=== PATIENT | female | born 1950 | race Two or more races ===

== ENCOUNTER 2020-03-27 14:02 | Outpatient (REF) | payer MEDICARE, SELFPAY ==
--- NOTE | 2020-03-27 14:21 | MM_ITS ---
EXAMINATION: MM DIAGNOSTIC DIGITAL BREAST TOMOSYNTHESIS, BILATERAL CLINICAL INFORMATION: Due for yearly exam. Also follow-up to decreased nodular asymmetric density medial left breast. The lifetime risk of breast cancer based on the Tyrer-Cuzick Model is 5%. COMPARISON: Mammography: 09/20/2019, 03/09/2019, 02/19/2019 (BI-RADS 0), 02/13/2018 TECHNIQUE: Digital breast tomosynthesis is performed in both the craniocaudal and mediolateral oblique views along with computer-aided detection (CAD). Synthesized 2D images are generated from the tomosynthesis. FINDINGS: There are scattered areas of fibroglandular density (ACR BI-RADS breast composition Category b). There is stable nodularity mid outer right breast and 6:00 mid left breast. The nodular asymmetry medial left breast for follow-up are no longer demonstrated. There is no developing density or interval mass or architectural abnormality. No abnormal calcifications. The axilla and skin contours are unremarkable. Results are provided to the patient at time of visit by the technologist. MM/MM tomosynthesis diagnostic BI IMPRESSION: No mammographic evidence of malignancy. No persistent or developing asymmetric density. ASSESSMENT: BI-RADS 2: Benign RECOMMENDATION: Routine annual mammography screening. This patient's information was entered into a reminder system with a target due date for their next mammogram.
== END 2020-03-27 14:03 | disposition home or self-care (01) ==
LOC: HO.MAMMO 14:02
DX: N64.89 Other specified disorders of breast (principal)
CPT/HCPCS: 77062; 77066

== ENCOUNTER → 2020-05-01 11:13 | Outpatient (BNVA) | payer MEDICARE, SELFPAY | PROVIDERS: Visit Provider Orthopaedic Surgery | DX: M16.0 Bilateral primary osteoarthritis of hip (principal); M17.12 Unilateral primary osteoarthritis, left knee | CPT/HCPCS: 99212; J1100 ==

== ENCOUNTER → 2020-05-25 12:26 | Outpatient (BNVA) | payer MEDICARE, SELFPAY | PROVIDERS: Visit Provider Orthopaedic Surgery | DX: M17.0 Bilateral primary osteoarthritis of knee (principal); M70.61 Trochanteric bursitis, right hip; M70.62 Trochanteric bursitis, left hip; R53.81 Other malaise | CPT/HCPCS: 20610; 99212; J1100 ==

== ENCOUNTER 2020-07-14 09:10 | Outpatient (REF) | payer MEDICARE, SELFPAY ==
[2020-07-14 09:37] LABS: MANUAL DIFF FLAG NO
[2020-07-14 09:56] LABS: Basophils Absolute Auto 0.1 X10*3/uL (0.0-0.2); Basophils Percent Auto 0.8 % (0-2); Eosinophils Absolute Auto 0.2 X10*3/uL (0.0-0.4); Eosinophils Percent Auto 2.7 % (0-4); Hematocrit 31.1 % (37-47); Hemoglobin 9.4 g/dl (12.0-16.0); Imm Gran Abs Auto 0.02 X10*3/uL (0.00-0.03); Imm Gran Pct Auto 0.3 % (0.0-0.4); Lymphocytes Absolute Auto 2.3 X10*3/uL (1.2-4.9); Lymphocytes Percent Auto 36.4 % (20-40); Mean Corpuscular HGB Conc 30.2 g/dl (31.0-35.0); Mean Corpuscular Hemoglobin 27.3 pg (27.0-33.0); Mean Corpuscular Volume 90.4 fL (80-98); Mean Platelet Volume 10.9 fL (9.4-12.3); Monocytes Absolute Auto 0.6 X10*3/uL (0.1-1.2); Monocytes Percent Auto 8.6 % (2-11); Neutrophils Absolute Auto 3.3 X10*3/uL (2.0-8.3); Neutrophils Percent Auto 51.2 % (45-73); Platelet Count 210 X10*3/uL (160-400); Red Blood Count 3.44 X10*6/uL (4.20-5.50); Red Cell Distribution Width 16.6 % (11.0-16.0); White Blood Count 6.4 X10*3/uL (4.8-10.8)
[2020-07-14 10:18] LABS: Alanine Aminotransferase 19 U/L (0-31); Albumin Level 3.6 g/dL (3.5-5.0); Alkaline Phosphatase 72 U/L (39-117); Anion Gap 13 (12-20); Aspartate Amino Transferase 25 U/L (5-31); Bilirubin Total 0.4 mg/dL (0.0-1.0); Blood Urea Nitrogen 19 mg/dL (9-16); Calcium 8.6 mg/dL (8.4-10.2); Carbon Dioxide 28 mmol/L (22-29); Chloride 106 mmol/L (96-108); Cholesterol 153 mg/dL; Estimated Glomerular Filt Rate 55; Glucose Fasting 93 mg/dL (60-99); HDL Cholesterol 53 mg/dL; LDL Cholesterol Calculated 87 mg/dl; Potassium 4.3 mmol/L (3.3-5.1); Sodium 143 mmol/L (135-145); Triglycerides 68 mg/dL
[2020-07-14 10:40] LABS: Thyroid Stimulating Hormone 1.31 uIU/mL (0.32-4.0)
== END 2020-07-14 09:11 | disposition home or self-care (01) ==
LOC: HO.LAB 09:10
PROVIDERS: Visit Provider Internal Medicine
DX: E03.9 Hypothyroidism, unspecified (principal); E11.9 Type 2 diabetes mellitus without complications; Z00.00 Encounter for general adult medical examination without abnormal findings
CPT/HCPCS: 36415; 80053; 80061; 84443; 85025

== ENCOUNTER 2020-07-25 08:00 | Outpatient (RCR) | payer MEDICARE, SELFPAY ==
[2020-06-06 09:50] VITALS: BP 192/91; PULSE 73
--- NOTE | 2020-06-06 12:03 | MHC.PT.EP ---
[facility] [place] Office [place] Office [place] Office [address] [phone] F: [phone] F: [phone] F: [phone] F: [phone] Physical Therapy Plan of Care Date of Evaluation: 06/06/20 Date of Surgery: N/A Diagnosis: BL Knee OA, Hip Trochanteric Bursitis Assessment: Eunice Sanders is a 69-year-old woman presenting to physical therapy with a diagnosis of BL knee OA and BL hip trochanteric bursitis. She has h/o of h/o which was well managed with medications however it was re-aggravated following a fall on 04/01/21. She demonstrates impairments in posture, gait, BL LE strength, and BL LE ROM. 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 She would benefit from skilled therapy to address the aforementioned impairments to improve her quality of life and allow her to return to her PLOF. Frequency and Duration: The patient will be seen 2 visits per week for 6 weeks. Short Term Goals: 1.) Pt will reports 2/10 pain in her hips and left knee within 3 weeks for leisure activites. 2.) Pt will demonstrate >120 of B Knee flexion to allow for squatting activities within 3 weeks. X Ray Equipment Tester Goals: 1.) Pt will be able to walk for >20 minutes with <2/10 pain to allow for safe community ambulation within 6 weeks. 2.) Pt will be able to negotiate 12 stairs at a time with <2/10 pain in order for her to get to her bathroom within 6 weeks. Treatment Plan: Modalities to reduce pain, spasms and effusion. Manual therapy to restore motion and function. Therapeutic exercise to improve strength and flexibility. Neuromuscular re-education for posture and balance. Therapeutic activities to return to functional activities of daily living. Electronically signed by: Hillary Ramirez, PT, DPT Please sign and return to therapist. Thank you for your referral.
--- NOTE | 2020-08-07 09:29 | MHC.PT.DC ---
[facility] [place] Office [place] Office [place] Office [address]sten Ke[address] [phone] F: [phone] F: [phone] F: [phone] F: [phone] Physical Therapy Discharge Report Diagnosis: BL Knee OA, Hip Trochanteric Bursitis Date of Surgery: N/A Date of Evaluation: 06/06/20 Date of Discharge: Treatments to Date: 10 Cancellations to Date: 1 No Shows to Date: 0 Discharge Status: Achieved Goals Improved Function Independent with HEP Discharge Summary: The patient was able to demonstrate correct form with her HEP. I gave her a handout regarding standing balance. Instructions given on safety, fall risk reduction, and doing exercises in a corner. She demonstrated appropriate ankle reactive strategies for balance recovery. She verbalized understanding of her HEP. She will be d/c from skilled PT at this time. Electronically signed by: Verena Houston PT DPT Please sign and return to therapist. Thank you for your referral.
== END 2020-08-07 09:30 | disposition other institution (70) ==
LOC: HO.PT 08:00
PROVIDERS: Visit Provider Orthopaedic Surgery
DX: M17.0 Bilateral primary osteoarthritis of knee (principal); M70.61 Trochanteric bursitis, right hip; M70.62 Trochanteric bursitis, left hip; R53.81 Other malaise
CPT/HCPCS: 97110; 97112; 97140; 97161; 97530

== ENCOUNTER → 2020-08-09 10:02 | Outpatient (BNVA) | payer MEDICARE, SELFPAY | PROVIDERS: PCP Internal Medicine; Visit Provider Dietitian, Registered | DX: E66.01 Morbid (severe) obesity due to excess calories (principal); Z68.41 Body mass index [BMI] 40.0-44.9, adult | CPT/HCPCS: 97802 ==

== ENCOUNTER → 2020-09-04 10:42 | Outpatient (BNVA) | payer MEDICARE, SELFPAY | PROVIDERS: PCP Internal Medicine; Visit Provider Orthopaedic Surgery | DX: M17.0 Bilateral primary osteoarthritis of knee (principal) | CPT/HCPCS: 20610; 99212; J1100 ==

== ENCOUNTER → 2020-09-07 14:01 | Outpatient (BNVA) | payer MEDICARE, SELFPAY | PROVIDERS: PCP Internal Medicine; Visit Provider Dietitian, Registered | DX: E66.01 Morbid (severe) obesity due to excess calories (principal); Z68.41 Body mass index [BMI] 40.0-44.9, adult | CPT/HCPCS: 97803 ==

== ENCOUNTER → 2020-10-05 14:00 | Outpatient (BNVA) | payer MEDICARE, SELFPAY | PROVIDERS: PCP Internal Medicine; Visit Provider Dietitian, Registered | DX: E66.01 Morbid (severe) obesity due to excess calories (principal); Z68.41 Body mass index [BMI] 40.0-44.9, adult | CPT/HCPCS: 97803 ==

== ENCOUNTER 2020-10-09 09:57 | Outpatient (REF) | payer MEDICARE, SELFPAY ==
--- NOTE | 2020-10-09 11:20 | ECG_ITS ---
Test Reason : I10 HTN Blood Pressure : / mmHG Vent. Rate : 066 BPM Atrial Rate : 066 BPM P-R Int : 196 ms QRS Dur : 090 ms QT Int : 408 ms P-R-T Axes : 046 -30 019 degrees QTc Int : 427 ms Normal sinus rhythm Left axis deviation Abnormal ECG When compared to the previous EKG of Left axis deviation is new Referred By: Eduardo Guaman Electronically Signed By:NADYA MONTEZ MD
[2020-10-09 12:01] LABS: MANUAL DIFF FLAG NO
[2020-10-09 12:19] LABS: Basophils Absolute Auto 0.1 X10*3/uL (0.0-0.2); Basophils Percent Auto 0.8 % (0-2); Eosinophils Absolute Auto 0.2 X10*3/uL (0.0-0.4); Eosinophils Percent Auto 2.4 % (0-4); Hematocrit 31.7 % (37-47); Hemoglobin 9.4 g/dl (12.0-16.0); Imm Gran Abs Auto 0.02 X10*3/uL (0.00-0.03); Imm Gran Pct Auto 0.3 % (0.0-0.4); Immature Retic Fraction 19.7 % (3.0-15.9); Lymphocytes Absolute Auto 2.4 X10*3/uL (1.2-4.9); Lymphocytes Percent Auto 38.3 % (20-40); Mean Corpuscular HGB Conc 29.7 g/dl (31.0-35.0); Mean Corpuscular Hemoglobin 26.9 pg (27.0-33.0); Mean Corpuscular Volume 90.6 fL (80-98); Mean Platelet Volume 10.7 fL (9.4-12.3); Monocytes Absolute Auto 0.5 X10*3/uL (0.1-1.2); Monocytes Percent Auto 7.3 % (2-11); Neutrophils Absolute Auto 3.2 X10*3/uL (2.0-8.3); Neutrophils Percent Auto 50.9 % (45-73); Platelet Count 202 X10*3/uL (160-400); Retic HGB Equivalent 28.5 pg (30.0-35.0); Reticulocyte Percent 1.3 % (0.5-1.8); Reticulocytes Absolute 0.046 X10*6/uL (0.026-0.095); White Blood Count 6.3 X10*3/uL (4.8-10.8)
[2020-10-09 12:48] LABS: Iron 17 mcg/dL (30-160); Percent Iron Saturation 4 % (15-50); Total Iron Binding Capacity 387 mcg/dL (228-428); Unsaturated Iron Binding 370 ug/dL
[2020-10-09 13:00] LABS: Uric Acid 3.5 mg/dL (2.4-5.7)
[2020-10-09 13:05] LABS: Ferritin 5 ng/mL (10-250)
[2020-10-09 13:10] LABS: Folate 18.8 ng/mL (> or = 4.0); Vitamin B12 171 pg/mL (200-900)
== END 2020-10-09 09:58 | disposition home or self-care (01) ==
LOC: HO.LAB 09:57
PROVIDERS: PCP Internal Medicine; Referring Provider Internal Medicine; Visit Provider Physician Assistant
DX: Z01.818 Encounter for other preprocedural examination (principal); D64.9 Anemia, unspecified; M17.0 Bilateral primary osteoarthritis of knee; I10 Essential (primary) hypertension
CPT/HCPCS: 36415; 82607; 82728; 82746; 83540; 84550; 85025; 85045; 93005; 99202

== ENCOUNTER 2020-11-01 13:44 | Day surgery (SDC) | payer MEDICARE, SELFPAY ==
[2020-10-26 12:12] VITALS: BMI 40.5
--- NOTE | 2020-10-31 12:08 | HO.ANESPROP2 ---
Documented by User: Yumiko Bethea 10/31/20 12:10 HPI - Anesthesia Eval Consult details Narrative: 69yo F for Upper Endoscopy and Colonoscopy PMFSH Active Problems Active Problems: All Active Problems (Updated 10/09/20 @ 11:54 by Marion Burger PA-C) Morbid (severe) obesity due to excess calories (Acute) Obesity (Acute) Colon cancer screening (Acute) Anemia (Acute) Hypertension (Acute) Physical deconditioning (Acute) Greater trochanteric bursitis of both hips (Acute) Bilateral primary osteoarthritis of knee (Acute) Past Medical History Medical History Bilateral primary osteoarthritis of knee Gout Greater trochanteric bursitis of both hips Hypertension Physical deconditioning Sarcoidosis Family History Family History Mother No problems noted. Father No problems noted. Surgical History Surgical History H/O colonoscopy H/O esophagogastroduodenoscopy History of hysterectomy Hx of tonsillectomy Social History Social History (Updated 10/09/20 @ 10:49 by Marion Burger PA-C) Household Members Other:: lives with - cares for her sister Alcohol intake: never Patient Tobacco Use Status: Never used Tobacco Advance Directives: No Advance Directives Information Provided: Yes Current occupational status: retired Current occupation: right handed Meds Allergies Allergy/AdvReac Type Severity Reaction Status Date / Time penicillin V Allergy Unknown Unknown Verified 10/09/20 10:03 Sulfa (Sulfonamide Allergy Unknown unknon Verified 10/09/20 10:03 Antibiotics) Benadryl Allergy Unknown Unknown Uncoded 09/04/20 10:51 Home Medications Medication Instructions Recorded Confirmed Last Taken Type aspirin 81 mg tablet,delayed 81 mg PO DAILY 05/01/20 10/26/20 Unknown History release allopurinol 300 mg tablet 300 mg PO DAILY tab 08/07/20 10/26/20 Unknown History ibuprofen 200 mg tablet 200 mg PO Q6H PRN 08/07/20 10/09/20 Unknown History multivitamin 1 tab PO DAILY 08/07/20 10/26/20 Unknown History Exam Exam Date and Time: October 31, 2020 1208 Height,Weight and Vital Signs: Height 5 ft 3 in Weight 103.873 kg Narrative Narrative: EKG 09/2020 Vent. Rate : 066 BPM Atrial Rate : 066 BPM P-R Int : 196 ms QRS Dur : 090 ms QT Int : 408 ms P-R-T Axes : 046 -30 019 degrees QTc Int : 427 ms Normal sinus rhythm Left axis deviation Abnormal ECG When compared to the previous EKG of Left axis deviation is new Assessment and Plan Assessment Anesthesia Assessment: Chart Reviewed Documented by User: Leyda Pimentel 11/01/20 14:42 PMFSH Past Medical History Medical History Bilateral primary osteoarthritis of knee Gout Greater trochanteric bursitis of both hips Hypertension Physical deconditioning Sarcoidosis Family History Family History Mother No problems noted. Father No problems noted. Surgical History Surgical History H/O colonoscopy H/O esophagogastroduodenoscopy History of hysterectomy Hx of tonsillectomy Social History Social History (Updated 10/09/20 @ 10:49 by Marion Burger PA-C) Household Members Other:: lives with - cares for her sister Alcohol intake: never Patient Tobacco Use Status: Never used Tobacco Advance Directives: No Advance Directives Information Provided: Yes Current occupational status: retired Current occupation: right handed Meds Allergies Allergy/AdvReac Type Severity Reaction Status Date / Time penicillin V Allergy Unknown Unknown Verified 10/09/20 10:03 Sulfa (Sulfonamide Allergy Unknown unknon Verified 10/09/20 10:03 Antibiotics) Benadryl Allergy Unknown Unknown Uncoded 09/04/20 10:51 Home Medications Medication Instructions Recorded Confirmed Last Taken Type aspirin 81 mg tablet,delayed 81 mg PO DAILY 05/01/20 10/26/20 Unknown History release allopurinol 300 mg tablet 300 mg PO DAILY tab 08/07/20 10/26/20 Unknown History ibuprofen 200 mg tablet 200 mg PO Q6H PRN 08/07/20 10/09/20 Unknown History multivitamin 1 tab PO DAILY 08/07/20 10/26/20 Unknown History Exam Airway Mallampati Class: III TM Dist: >3cm Neck ROM: Full Heart: rrr Lungs: cta Assessment and Plan Assessment Anesthesia Assessment: Anesthesia Plan Discussed and Chart Reviewed Final Anesthetic Review NPO: Yes ASA Class: III Final Preanesthetic Review: No Changes in Pt Med Stat and Consent Obtained/Reviewed Patient Risk: Intermediate Procedure Risk: Intermediate Anesthetic Plan Anesthetic Plan: MAC: Disposition: Standard PACU
--- NOTE | 2020-11-01 13:48 | P.HPSUR_ITS ---
Pre-Procedural Eval Section A Date of Service: 11/01/20 Section B Chief Complaint: anemia,screening Relevant Family History (Specify if Yes): No Relevant Social History: None Present Medications: see Short Stay Collaborative assessment Medical History: Significant History (Bilateral primary osteoarthritis of knee Gout Greater trochanteric bursitis of both hips Hypertension Physical deconditioning Sarcoidosis) History of Previous Operations: Relevant previous surgery/procedure and date(s) (H/O colonoscopy H/O esophagogastroduodenoscopy History of hysterectomy Hx of tonsillectomy) Allergies: Allergies Allergy/AdvReac Type Severity Reaction Status Date / Time penicillin V Allergy Unknown Unknown Verified 10/09/20 10:03 Sulfa (Sulfonamide Allergy Unknown unknon Verified 10/09/20 10:03 Antibiotics) Benadryl Allergy Unknown Unknown Uncoded 09/04/20 10:51 Review of Systems Sugical H&P ROS: Negative: Constitution, Cardiovascular, Respiratory, Neurological, Psychiatric, Hem-Onc, Allergic/Immunologic, Gastrointestinal, Gen itourinary, Musculoskeletal, Integumentary, Endocrine and Eyes/Ears/Nose/Throat Exam Surgical H&P Exam: Normal: HEENT, Normal: Heart, Normal: Lungs, Normal: Extremities, Normal: Abdomen, Normal: Skin and Normal: Neurological Plan Diagnosis/Plan: Unchanged I have reviewed the history and physical and performed a pertinent physical examination on my patient. No changes have occurred unless specified.
--- NOTE | 2020-11-01 13:49 | PM.OP ---
Brief Operative Note Date of Service: 11/01/20 Pre-op diagnosis: anemia Post-op diagnosis: same Procedure: see op note Surgeon: Blanca Rasmussen MD Anesthesia: MAC Was an Exceptional Student Education Teacher used for this Procedure?: No Estimated blood loss (mL): 0 Condition: stable Disposition: PACU
--- NOTE | 2020-11-01 13:50 | W.PM.OPN ---
Operative Note Operative Note Date of Service: 11/01/20 Narrative: Operative Information Procedure Description: EGD, Colonoscopy FLEXIBLE TRANSORAL UPPER GASTROINTESTINAL ENDOSCOPY AND COLONOSCOPY PROCEDURE NOTE UPPER ENDOSCOPY Consent: Indications for the procedure and potential complications of bleeding, perforation, reaction to medications and missed diagnosis were discussed with the patient and informed consent was obtained. Instrument: Olympus GIF H 190 J mid size upper endoscope Monitoring: Vital signs and clinical assessment, continuous EKG monitoring, Pulse oximetry, Carbon Dioxide monitoring and blood pressure monitoring were done throughout the procedure. Procedure: The patient was placed in the left lateral decubitis position and pre-procedure medications were administered and a bite block was placed. The endoscope was inserted into the mouth and advanced under direct vision to the third part of duodenum. A careful inspection was made as the upper endoscope was withdrawn including a retroflexed examination of the proximal stomach; Findings and interventions are described below. Findings: Larynx:normal Esophagus: GE junction at 38 cm, diaphragm hiatus at 40 cm, schatzki ring noted with 2 cm sliding hiatal hernia and salmon pink tongue of tissue suspicious for barretts esophagus, bx taken Stomach: Patchy gastritis. Biopsies were obtained. Grade 2 flap valve on retroflexed examination of the cardia. Duodenum: Normal bulb and descending duodenum, bx taken Intervention: Biopsies as noted above COLONOSCOPY Instrument: Olympus variable stiffness adult scope 190L Colonoscopy Monitoring: Vital signs and clinical assessment, continuous EKG monitoring, Pulse oximetry, Carbon Dioxide monitoring and blood pressure monitoring were done throughout the procedure. Colon withdrawal time was 9 minutes. Procedure: The patient was placed in the left lateral decubitis position and pre-procedure medications were administered. After a digital rectal examination of the ano-rectum, the video colonoscope was inserted into the rectum and advanced through the colon to the cecum/TI. The colonoscope was slowly withdrawn in a retrograde panoramic fashion and the colon mucosa was carefully examined including a retroflexed view of the rectum. Findings and interventions are described below. Procedure Difficulty:easy Findings: Terminal Ileum-nodular lymphoid tissue noted with ileitis and erythema, bx taken right sided random colon bx taken Cecum:normal Ascending Colon: normal Transverse Colon -normal Descending Colon:normal Sigmoid Colon: mild diverticulosis, small tics noted Rectum: Retroflexion with small internal hemorrhoids, grade I Anorectum - normal Colon preparation: [place] Bowel Preparation Scale Right colon; 2 Transverse colon: 2 Left colon; 3 (0 = Unprepared colon segment with mucosa not seen due to solid stool that cannot be cleared. 1 = Portion of mucosa of the colon segment seen, but other areas of the colon segment not well seen due to staining, residual stool and/or opaque liquid. 2 = Minor amount of residual staining, small fragments of stool and/or opaque liquid, but mucosa of colon segment seen well. 3 = Entire mucosa of colon segment seen well with no residual staining, small fragments of stool or opaque liquid) Impression and Post Procedure Diagnosis: Endoscopy Findings: hiatal hernia gastritis suspected barretts esophagus Colonoscopy Findings: internal hemorrhoids diverticular disease Plan: Await Pathology results Repeat Colonoscopy in 10 years if health allows or earlier if clinically indicated High fiber diet leaflet avoid straining at stool, epsom salts and sitz bath, anusol supps or cream No active bleeding noted, if bx neg then capsule endoscopy Above findings were reviewed with the patient and relevant handouts were provided if indicated.
[2020-11-01 14:01] VITALS: BP 181/96; PULSE 73; RESP 15; TEMP 36.7; O2SAT 97; BMI 39.8
[2020-11-01] MEDS: Lactated Ringers 1,000 ML 100 ML IVCONT (14:17)
[2020-11-01 15:30] VITALS: BP 125/68; PULSE 82; RESP 14; TEMP 36.2; O2SAT 95
[2020-11-01 15:45] VITALS: BP 137/80; PULSE 84; RESP 18; O2SAT 97
== END 2020-11-01 16:55 | disposition home or self-care (01) ==
PROVIDERS: PCP Internal Medicine; Visit Provider Internal Medicine Gastroenterology
PROC: (CPT 45380; principal; 2020-11-01 14:50)
DX: Z12.11 Encounter for screening for malignant neoplasm of colon (principal); K57.30 Diverticulosis of large intestine without perforation or abscess without bleeding; K64.0 First degree hemorrhoids; D64.9 Anemia, unspecified; K22.2 Esophageal obstruction; K22.70 Barrett's esophagus without dysplasia; K29.50 Unspecified chronic gastritis without bleeding; K44.9 Diaphragmatic hernia without obstruction or gangrene; D86.9 Sarcoidosis, unspecified; I10 Essential (primary) hypertension; Z79.82 Long term (current) use of aspirin; Z79.899 Other long term (current) drug therapy; Z88.0 Allergy status to penicillin; Z88.2 Allergy status to sulfonamides
CPT/HCPCS: 45380; 43239; 88305; 88342

== ENCOUNTER → 2020-11-13 09:41 | Outpatient (BNVA) | payer MEDICARE, SELFPAY | PROVIDERS: PCP Internal Medicine; Referring Provider Internal Medicine; Visit Provider Internal Medicine Gastroenterology ==

== ENCOUNTER 2020-11-13 10:05 | Outpatient (REF) | payer MEDICARE, SELFPAY ==
[2020-11-16 13:35] LABS: H Pylori Breath Test NOT DETECTED (NOT DETECTED)
== END 2020-11-13 10:06 | disposition home or self-care (01) ==
LOC: HO.LNP 10:05
PROVIDERS: Visit Provider Physician Assistant
DX: A04.8 Other specified bacterial intestinal infections (principal)
CPT/HCPCS: 83013

== ENCOUNTER → 2020-11-14 13:32 | Outpatient (BNVA) | payer MEDICARE, SELFPAY | PROVIDERS: PCP Internal Medicine; Visit Provider Physician Assistant | DX: Z13.89 Encounter for screening for other disorder (principal) | CPT/HCPCS: Q3014 ==

== ENCOUNTER → 2020-11-23 14:32 | Outpatient (BNVA) | payer MEDICARE, SELFPAY | PROVIDERS: PCP Internal Medicine; Visit Provider Dietitian, Registered | DX: E66.01 Morbid (severe) obesity due to excess calories (principal); Z71.3 Dietary counseling and surveillance | CPT/HCPCS: 97803 ==

== ENCOUNTER 2020-12-04 09:25 | Outpatient (REF) | payer MEDICARE, SELFPAY ==
[2020-12-04 10:47] LABS: MANUAL DIFF FLAG NO
[2020-12-04 10:53] LABS: Basophils Percent Auto 0.7 % (0-2); Eosinophils Absolute Auto 0.2 X10*3/uL (0.0-0.4); Eosinophils Percent Auto 3.8 % (0-4); Hematocrit 32.4 % (37-47); Hemoglobin 9.8 g/dl (12.0-16.0); Imm Gran Abs Auto 0.01 X10*3/uL (0.00-0.03); Imm Gran Pct Auto 0.2 % (0.0-0.4); Immature Retic Fraction 24.8 % (3.0-15.9); Lymphocytes Absolute Auto 1.9 X10*3/uL (1.2-4.9); Lymphocytes Percent Auto 33.9 % (20-40); Mean Corpuscular HGB Conc 30.2 g/dl (31.0-35.0); Mean Corpuscular Hemoglobin 26.8 pg (27.0-33.0); Mean Corpuscular Volume 88.5 fL (80-98); Mean Platelet Volume 11.7 fL (9.4-12.3); Monocytes Absolute Auto 0.4 X10*3/uL (0.1-1.2); Monocytes Percent Auto 6.6 % (2-11); Neutrophils Percent Auto 54.8 % (45-73); Platelet Count 222 X10*3/uL (160-400); Red Blood Count 3.66 X10*6/uL (4.20-5.50); Red Cell Distribution Width 17.6 % (11.0-16.0); Retic HGB Equivalent 28.3 pg (30.0-35.0); Reticulocyte Percent 1.3 % (0.5-1.8); Reticulocytes Absolute 0.048 X10*6/uL (0.026-0.095); White Blood Count 5.5 X10*3/uL (4.8-10.8)
[2020-12-04 11:23] LABS: Iron 26 mcg/dL (30-160)
[2020-12-04 11:29] LABS: Ferritin 6 ng/mL (10-250)
[2020-12-04 11:44] LABS: Folate 18.3 ng/mL (> or = 4.0); Vitamin B12 839 pg/mL (200-900)
[2020-12-06 16:15] LABS: Percent Iron Saturation 8 % (15-50); Total Iron Binding Capacity 344 mcg/dL (228-428); Unsaturated Iron Binding 318 ug/dL
== END 2020-12-04 09:26 | disposition home or self-care (01) ==
LOC: HO.LAB 09:25
PROVIDERS: PCP Internal Medicine; Visit Provider Internal Medicine
DX: D64.9 Anemia, unspecified (principal)
CPT/HCPCS: 36415; 82607; 82728; 82746; 83540; 85025; 85045

== ENCOUNTER 2020-12-06 11:45 | Outpatient (REF) | payer MEDICARE, SELFPAY ==
[2020-12-11 03:11] LABS: Calprotectin, Fecal 557 mcg/g
== END 2020-12-06 11:46 | disposition home or self-care (01) ==
LOC: HO.LNP 11:45
PROVIDERS: Visit Provider Physician Assistant
DX: R19.7 Diarrhea, unspecified (principal)
CPT/HCPCS: 83993

== ENCOUNTER → 2020-12-19 14:43 | Outpatient (BNVA) | payer MEDICARE, SELFPAY | PROVIDERS: PCP Internal Medicine; Visit Provider Physician Assistant | CPT/HCPCS: Q3014 ==

== ENCOUNTER → 2020-12-28 08:28 | Outpatient (BNVA) | payer MEDICARE, SELFPAY | PROVIDERS: PCP Internal Medicine; Referring Provider Internal Medicine; Visit Provider Internal Medicine Gastroenterology | DX: K22.2 Esophageal obstruction (principal); K29.70 Gastritis, unspecified, without bleeding | CPT/HCPCS: 91110 ==

== ENCOUNTER → 2021-01-24 13:45 | Outpatient (BNVA) | payer MEDICARE, SELFPAY | PROVIDERS: PCP Internal Medicine; Referring Provider Internal Medicine; Visit Provider Physician Assistant | CPT/HCPCS: Q3014 ==

== ENCOUNTER → 2021-01-25 12:33 | Outpatient (BNVA) | payer MEDICARE, SELFPAY | PROVIDERS: PCP Internal Medicine; Visit Provider Dietitian, Registered | DX: E66.01 Morbid (severe) obesity due to excess calories (principal) | CPT/HCPCS: 97803 ==

== ENCOUNTER 2021-07-02 12:10 | Outpatient (REF) | payer MEDICARE, SELFPAY ==
--- NOTE | ~2021-07-02 | MM_ITS ---
EXAMINATION: MM SCREENING DIGITAL BREAST TOMOSYNTHESIS, BILATERAL CLINICAL INFORMATION: Screening. Asymptomatic. The lifetime risk of breast cancer based on the Tyrer-Cuzick Model is 6.5%. COMPARISON: Mammography: March 27, 2020 and studies dating back to May 31, 2013 TECHNIQUE: Digital breast tomosynthesis is performed in both the craniocaudal and mediolateral oblique views along with computer-aided detection (CAD). Synthesized 2D images are generated from the tomosynthesis. FINDINGS: There are scattered areas of fibroglandular density (ACR BI-RADS breast composition Category b). There are no new significant masses, abnormal calcifications, or other abnormalities. MM/MM tomosynthesis screening BI IMPRESSION: There are no significant changes from prior study. ASSESSMENT: BI-RADS 1: Negative RECOMMENDATION: Routine annual mammography screening. This patient's information was entered into a reminder system with a target due date for their next mammogram.
== END 2021-07-02 12:11 | disposition home or self-care (01) ==
LOC: HO.MAMMO 12:10
PROVIDERS: PCP Internal Medicine; Visit Provider Internal Medicine
DX: Z12.31 Encounter for screening mammogram for malignant neoplasm of breast (principal)
CPT/HCPCS: 77063; 77067

== ENCOUNTER 2021-09-21 09:56 | Outpatient (REF) | payer MEDICARE, SELFPAY ==
[2021-09-21 10:07] LABS: MANUAL DIFF FLAG NO
[2021-09-21 10:18] LABS: Basophils Absolute Auto 0.1 X10*3/uL (0.0-0.2); Basophils Percent Auto 0.8 % (0-2); Eosinophils Absolute Auto 0.1 X10*3/uL (0.0-0.4); Eosinophils Percent Auto 1.9 % (0-4); Hematocrit 34.3 % (37.0-47.0); Hemoglobin 10.6 g/dl (12.0-16.0); Imm Gran Abs Auto 0.02 X10*3/uL (0.00-0.03); Imm Gran Pct Auto 0.3 % (0.0-0.4); Immature Retic Fraction 18.3 % (3.0-15.9); Lymphocytes Absolute Auto 2.4 X10*3/uL (1.2-4.9); Lymphocytes Percent Auto 32.5 % (20-40); Mean Corpuscular HGB Conc 30.9 g/dl (31.0-35.0); Mean Corpuscular Hemoglobin 28.4 pg (27.0-33.0); Mean Platelet Volume 10.3 fL (9.4-12.3); Monocytes Absolute Auto 0.5 X10*3/uL (0.1-1.2); Monocytes Percent Auto 6.5 % (2-11); Neutrophils Absolute Auto 4.2 x10*3/uL (2.0-8.3); Platelet Count 222 X10*3/uL (160-400); Red Blood Count 3.73 X10*6/uL (4.20-5.50); Red Cell Distribution Width 15.8 % (11.0-16.0); Retic HGB Equivalent 30.2 pg (30.0-35.0); Reticulocyte Percent 1.2 % (0.5-1.8); Reticulocytes Absolute 0.046 X10*6/uL (0.026-0.095); White Blood Count 7.3 X10*3/uL (4.8-10.8)
[2021-09-21 10:46] LABS: Alanine Aminotransferase 17 U/L (0-31); Albumin Level 3.8 g/dL (3.5-5.0); Alkaline Phosphatase 78 U/L (39-117); Anion Gap 12 (12-20); Aspartate Amino Transferase 19 U/L (5-31); Bilirubin Total 0.3 mg/dL (0.0-1.0); Blood Urea Nitrogen 15 mg/dL (9-16); Calcium 8.8 mg/dL (8.4-10.2); Carbon Dioxide 29 mmol/L (22-29); Chloride 105 mmol/L (96-108); Estimated Glomerular Filt Rate 52; Glucose Random 97 mg/dL (60-115); Iron 49 mcg/dL (30-160); Percent Iron Saturation 13 % (15-50); Potassium 4.1 mmol/L (3.3-5.1); Sodium 142 mmol/L (135-145); Total Iron Binding Capacity 376 mcg/dL (228-428); Total Protein 7.7 g/dL (6.5-8.0); Unsaturated Iron Binding 327 ug/dL
[2021-09-21 11:07] LABS: Free T4 (Free Thyroxine) 1.25 ng/dL (0.71-1.85); Thyroid Stimulating Hormone 1.18 uIU/mL (0.32-4.0)
[2021-09-21 11:28] LABS: Folate 17.4 ng/mL (> or = 4.0); Vitamin B12 > 2000 pg/mL (200-900)
== END 2021-09-21 09:57 | disposition home or self-care (01) ==
LOC: HO.LAB 09:56
PROVIDERS: PCP Internal Medicine; Visit Provider Internal Medicine
DX: D64.9 Anemia, unspecified (principal); I10 Essential (primary) hypertension
CPT/HCPCS: 36415; 80053; 82306; 82607; 82746; 83540; 84439; 84443; 85025; 85045

== ENCOUNTER → 2021-10-12 10:17 | Outpatient (BNVA) | payer MEDICARE, SELFPAY | PROVIDERS: PCP Internal Medicine; Visit Provider Dietitian, Registered | DX: E66.01 Morbid (severe) obesity due to excess calories (principal); Z68.41 Body mass index [BMI] 40.0-44.9, adult; Z71.3 Dietary counseling and surveillance | CPT/HCPCS: 97803 ==

== ENCOUNTER → 2021-10-25 10:44 | Outpatient (BNVA) | payer MEDICARE, OTHER, SELFPAY | PROVIDERS: PCP Internal Medicine; Visit Provider Orthopaedic Surgery | DX: M70.62 Trochanteric bursitis, left hip (principal) | CPT/HCPCS: 20610; 99212; J1100 ==

== ENCOUNTER → 2021-10-29 10:42 | Outpatient (BNV) | payer MEDICARE, MEDICAID, SELFPAY | PROVIDERS: PCP Internal Medicine; Visit Provider Internal Medicine | DX: D64.9 Anemia, unspecified (principal) | CPT/HCPCS: 99204; 99212; 99213; G2211 ==

== ENCOUNTER 2021-11-07 10:48 | Outpatient (REF) | payer MEDICARE, SELFPAY ==
--- NOTE | ~2021-11-07 | XR_ITS ---
EXAMINATION: XR FINGER, RIGHT CLINICAL INFORMATION: R22.31 - Localized swelling, mass and lump and pain 4th finger COMPARISON: None TECHNIQUE: Frontal view right hand and oblique and lateral views of the fourth finger are obtained for 3 views. FINDINGS: There is mild osteopenia. No periarticular demineralization. No acute or healing fracture, dislocation, destructive process, or periostitis. The fourth finger shows no bony exostosis, joint narrowing, erosive change, or mineralized soft tissue mass. XR/XR finger RT min 2V IMPRESSION: -No bony exostosis, fracture, destructive process, or erosive arthropathy. -No visualized mineralized soft tissue mass. -Mild generalized osteopenia.
== END 2021-11-07 10:49 | disposition home or self-care (01) ==
LOC: HO.XRAY 10:48
PROVIDERS: PCP Internal Medicine; Visit Provider Internal Medicine
DX: R22.31 Localized swelling, mass and lump, right upper limb (principal)
CPT/HCPCS: 73140

== ENCOUNTER → 2021-12-13 10:10 | Outpatient (BNVA) | payer MEDICARE, SELFPAY | PROVIDERS: PCP Internal Medicine; Visit Provider Dietitian, Registered | DX: E66.01 Morbid (severe) obesity due to excess calories (principal); Z68.41 Body mass index [BMI] 40.0-44.9, adult; Z71.3 Dietary counseling and surveillance | CPT/HCPCS: 97803 ==

== ENCOUNTER → 2021-12-21 11:38 | Outpatient (BNVA) | payer MEDICARE, SELFPAY | PROVIDERS: PCP Internal Medicine; Visit Provider Physician Assistant | DX: R22.31 Localized swelling, mass and lump, right upper limb (principal) | CPT/HCPCS: 99202 ==

== ENCOUNTER 2022-01-31 12:55 | Outpatient (REF) | payer MEDICARE, MEDICAID, SELFPAY ==
--- NOTE | ~2022-01-31 | MR_ITS ---
EXAMINATION: MRI OF THE RIGHT HAND WITH AND WITHOUT CONTRAST. CLINICAL INFORMATION: Localized swelling. Mass and lump in the right upper extremity. Fourth digit mass x7 months. Not painful. COMPARISON: None. TECHNIQUE: Multiplanar MR imaging was obtained through the ring finger on a 1.5 Anamaria magnet before and after intravenous administration of 10 mL Gadavist. FINDINGS: Within the volar subcutaneous fat at the level of the ring finger PIP joint, there is a 1.9 x 0.7 x 1.2 cm bilobed nodule with intermediate signal intensity on T2-weighted images, low signal intensity on T1-weighted images, and diffuse enhancement on postcontrast images. At its deep margin, this nodule surrounds the flexor tendon sheath and A3 betty. Surrounding soft tissues are normal in signal intensity without edema signal or fluid collections. The tendon is intact without tears, tendinosis, or tenosynovitis. Musculature is normal in signal intensity. Mild multifocal osteoarthritis is evident in the MCP joints and interphalangeal joints with more mild to moderate osteoarthritis at the thumb CMC joint. No acute osseous abnormalities. MR/MR hand RT wo/w con IMPRESSION: A 1.9 cm bilobed enhancing nodule in the volar subcutaneous fat at the level of the ring finger PIP joint. The differential diagnosis includes an extra-articular tenosynovial giant cell tumor and a fibroma of the tendon sheath. Other possibilities range from gout to a soft tissue neoplasm. Tissue diagnosis is advised.
== END 2022-01-31 12:56 | disposition home or self-care (01) ==
LOC: HO.MRI 12:55
PROVIDERS: Visit Provider Physician Assistant
DX: R22.31 Localized swelling, mass and lump, right upper limb (principal)
CPT/HCPCS: 73220; A9585

== ENCOUNTER 2022-03-05 14:02 | Outpatient (REF) | payer MEDICARE, MEDICAID, SELFPAY ==
--- NOTE | ~2022-03-05 | XR_ITS ---
EXAMINATION: XR HAND, RIGHT CLINICAL INFORMATION: Pain. COMPARISON: None TECHNIQUE: PA, lateral, and oblique views of the right hand. FINDINGS: There is mild loss of PIP and DIP joint space of all digits with mild periarticular spurring PIP joint first digit. No visible acute fracture, dislocation or subluxation seen. There is mild osteopenia. The soft tissues are normal. XR/XR hand RT min 3V IMPRESSION: Degenerative osteoarthritic changes PIP and DIP joints. There is mild diffuse osteopenia. No visible acute fracture or dislocation.
== END 2022-03-05 14:03 | disposition home or self-care (01) ==
LOC: HO.HOSX 14:02
PROVIDERS: Visit Provider Orthopaedic Surgery
DX: M79.641 Pain in right hand (principal)
CPT/HCPCS: 73130

== ENCOUNTER → 2022-03-06 10:42 | Outpatient (BNVA) | payer MEDICARE, MEDICAID, SELFPAY | PROVIDERS: PCP Internal Medicine; Visit Provider Orthopaedic Surgery | DX: R22.31 Localized swelling, mass and lump, right upper limb (principal) | CPT/HCPCS: 99212 ==

== ENCOUNTER → 2022-03-18 11:33 | Outpatient (BNVA) | payer MEDICARE, MEDICAID, SELFPAY | PROVIDERS: PCP Internal Medicine; Visit Provider Orthopaedic Surgery | DX: M70.62 Trochanteric bursitis, left hip (principal); M17.12 Unilateral primary osteoarthritis, left knee | CPT/HCPCS: 20610; 99212; J1100 ==

== ENCOUNTER 2022-03-21 10:15 | Outpatient (REF) | payer MEDICARE, MEDICAID, SELFPAY ==
--- NOTE | 2022-03-21 10:20 | ECG_ITS ---
Test Reason : preproc exam Blood Pressure : / mmHG Vent. Rate : 062 BPM Atrial Rate : 062 BPM P-R Int : 210 ms QRS Dur : 094 ms QT Int : 402 ms P-R-T Axes : 033 -39 043 degrees QTc Int : 408 ms Sinus rhythm with 1st degree A-V block Left axis deviation Minimal voltage criteria for LVH, may be normal variant ( Pipo product ) Abnormal ECG When compared with ECG of 09-OCT-2020 11:27, No significant change was found Referred By: Jia Jacome Electronically Signed By:NADYA MONTEZ MD
[2022-03-21 12:41] LABS: Anion Gap 14 (12-20); Blood Urea Nitrogen 25 mg/dL (9-16); Calcium 8.9 mg/dL (8.4-10.2); Carbon Dioxide 28 mmol/L (22-29); Chloride 103 mmol/L (96-108); Estimated Glomerular Filt Rate 54; Glucose Random 78 mg/dL (60-115); Sodium 141 mmol/L (135-145)
== END 2022-03-21 10:16 | disposition home or self-care (01) ==
LOC: HO.LAB 10:15
PROVIDERS: PCP Internal Medicine; Visit Provider Nurse Practitioner Family
DX: Z01.818 Encounter for other preprocedural examination (principal); I10 Essential (primary) hypertension
CPT/HCPCS: 36415; 80048; 93005

== ENCOUNTER → 2022-04-24 13:06 | Outpatient (BNVA) | payer MEDICARE, MEDICAID, SELFPAY | PROVIDERS: PCP Internal Medicine; Visit Provider Orthopaedic Surgery | DX: R22.31 Localized swelling, mass and lump, right upper limb (principal) | CPT/HCPCS: 99212 ==

== ENCOUNTER 2022-05-09 12:55 | Day surgery (SDC) | payer MEDICARE, MEDICAID, SELFPAY ==
[2022-05-09 13:16] VITALS: BP 178/84; PULSE 84; RESP 18; TEMP 36.6; O2SAT 98; BMI 40.0
--- NOTE | 2022-05-09 13:58 | MHC.SHP ---
Pre-Procedural Eval Section A Date of Service: 05/09/22 The patient is an INPATIENT: No Changes since office visit: No Cold of Flu in the past 2 weeks, No New Medical Problems, No Changes in Medication and No Patient answered all questions The History & Physical has been completed within 30 days and I have reviewed it.: Yes Section B Chief Complaint: Localized swelling, mass and lump, right Allergies: Allergies Allergy/AdvReac Type Severity Reaction Status Date / Time penicillin V Allergy Unknown Unknown Verified 03/21/22 09:29 Sulfa (Sulfonamide Allergy Unknown unknon Verified 03/21/22 09:29 Antibiotics) Benadryl Allergy Unknown Unknown Uncoded 02/22/22 14:37 Plan I have reviewed the history and physical and performed a pertinent physical examination on my patient. No changes have occurred unless specified. Time Spent With Patient Time: Total time managing care of this patient today ____ minutes.
--- NOTE | 2022-05-09 14:01 | W.PM.OPN ---
Operative Note Operative Note Date of Service: 05/09/22 Narrative: Operative Note Preop diagnosis: 1. Right ring finger volar soft tissue mass Postop diagnosis: same Procedure: 1. Right ring finger volar soft tissue mass excisional biopsy Surgeon: Regina Carter MD Anesthesia: digital block using 1% lidocaine with epinephrine Findings: She had a white solid bi-lobed soft tissue mass that was adherent to the flexor tendon sheath and also to the volar plate on the ulnar aspect of the PIP joint. EBL: Less than 5 mL Tourniquet time: 23 minutes at the wrist level. Specimens: Right ring finger solid soft tissue mass for histopathology Complications: None Disposition: Brought to recovery room in stable condition Plan: Follow-up for 7-10 days for wound check and suture removal and to check pathology Indications: The patient is 71 years old, with right ring finger volar soft tissue mass that has been getting larger over the past year . The risks and benefits of operative treatment including but not limited to risk of damage to blood vessels, nerves, tendons, infection, persistent pain, persistent symptoms, recurrence or possible need for additional surgery were discussed with the patient and the patient wishes to proceed with surgery. Procedure: Once consent was obtained a digital block was performed in the preop area using a combination of 1% lidocaine with epinephrine. The patient was then brought back to the operating suite and placed on the operative table in supine position. A finger tourniquet was applied to the base of the patient's right ring finger for about 10 minutes. After working for 10 minutes I removed the finger tourniquet and I then placed a sterile tourniquet about her right wrist and the limb was elevated and exsanguinated with an Esmarch bandage and the tourniquet inflated to 250 mmHg for a total tourniquet time of 23 minutes.. Once assured that we had a good block, I made a Alexandru type incision over the volar aspect of the proximal and middle phalanxes. Incision was made using a 15. Blade through the skin to the subcutaneous tissues. I then used tenotomy scissors to carefully dissect down to the level of the soft tissue mass. The mass was bilobed and solid. It was adherent to the flexor tendon sheath and then it here into either the most ulnar aspect of the flexor tendon sheath or perhaps the volar plate on the ulnar aspect of the PIP joint. The larger more spherical portion of the mass measured approximately 1.2 cm in diameter. The smaller more oval portion of the mass was perhaps 8 cm in length and about 4-5 mm in diameter and they were attached to each other. The larger part of the mass past just radial to the neurovascular bundle and then deep to the bundle and then the smaller portion was just deep and ulnar to the neurovascular bundle. Soft tissue mass was carefully dissected free from the surrounding soft tissues using tenotomy and iris scissors. I did take a portion of the flexor tendon sheath that was attached to the mass with the mass. This was just distal to the A2 betty. It was then from the ulnar most aspect of either the volar flexor tendon sheath or volar plate. It was then removed from the finger and placed on the back table to be sent for histopathologic review. Once satisfied with our excisional biopsy the tourniquet was deflated, the wound was copiously irrigated with normal saline and hemostasis was obtained with a brief period of local pressure. The skin edges were reapproximated with some 5.0 Prolene suture material and a sterile dressing was applied. The patient appears to have tolerated the procedure well and with no complications. All digits were well vascularized at the conclusion of the case.
[2022-05-09 15:26] VITALS: BP 188/89; PULSE 65; RESP 18; O2SAT 99
== END 2022-05-09 15:27 | disposition home or self-care (01) ==
PROVIDERS: PCP Internal Medicine; Visit Provider Orthopaedic Surgery
PROC: (CPT 26116; principal; 2022-05-09 14:10)
DX: D21.11 Benign neoplasm of connective and other soft tissue of right upper limb, including shoulder (principal); D64.9 Anemia, unspecified; I10 Essential (primary) hypertension; M10.9 Gout, unspecified; D86.9 Sarcoidosis, unspecified; Z79.899 Other long term (current) drug therapy; Z88.0 Allergy status to penicillin; Z88.2 Allergy status to sulfonamides
CPT/HCPCS: 26116; 88304; 88305; J0171

== ENCOUNTER → 2022-05-22 11:30 | Outpatient (BNVA) | payer MEDICARE, MEDICAID, SELFPAY | PROVIDERS: PCP Internal Medicine; Visit Provider Orthopaedic Surgery | DX: Z13.89 Encounter for screening for other disorder (principal) | CPT/HCPCS: 99212 ==

== ENCOUNTER 2022-06-19 09:23 | Outpatient (REF) | payer MEDICARE, MEDICAID, SELFPAY ==
[2022-06-19 09:43] LABS: MANUAL DIFF FLAG NO
[2022-06-19 10:05] LABS: Basophils Percent Auto 0.6 % (0-2); Eosinophils Absolute Auto 0.2 X10*3/uL (0.0-0.4); Eosinophils Percent Auto 2.5 % (0-4); Hematocrit 36.8 % (37.0-47.0); Hemoglobin 11.9 g/dl (12.0-16.0); Imm Gran Abs Auto 0.02 X10*3/uL (0.00-0.03); Imm Gran Pct Auto 0.3 % (0.0-0.4); Immature Retic Fraction 14.3 % (3.0-15.9); Lymphocytes Percent Auto 31.7 % (20-40); Mean Corpuscular HGB Conc 32.3 g/dl (31.0-35.0); Mean Corpuscular Hemoglobin 31.4 pg (27.0-33.0); Mean Corpuscular Volume 97.1 fL (80.0-98.0); Mean Platelet Volume 10.6 fL (9.4-12.3); Monocytes Absolute Auto 0.4 X10*3/uL (0.1-1.2); Monocytes Percent Auto 6.6 % (2-11); Neutrophils Absolute Auto 3.7 x10*3/uL (2.0-8.3); Neutrophils Percent Auto 58.3 % (45-73); Platelet Count 188 X10*3/uL (160-400); Red Blood Count 3.79 X10*6/uL (4.20-5.50); Red Cell Distribution Width 14.1 % (11.0-16.0); Retic HGB Equivalent 35.3 pg (30.0-35.0); Reticulocyte Percent 1.3 % (0.5-1.8); Reticulocytes Absolute 0.049 X10*6/uL (0.026-0.095); White Blood Count 6.4 X10*3/uL (4.8-10.8)
[2022-06-19 10:38] LABS: Appearance Urine Clear; Color Urine Yellow; Glucose Urine UA Negative (Negative); Leukocyte Esterase Urine Negative (Negative); Nitrite Urine Negative (Negative); UMIC TRIGGER UA YES; Urine Blood Negative (Negative); Urine Ketones Negative (Negative); Urine Protein 100 (2+) mg/dL (Neg-Trace)
[2022-06-19 10:41] LABS: Bacteria Urine 1+ (None Seen); Hyaline Casts Urine 0-2 /LPF (0-2); WBC Urine 0-5 /HPF (0-5)
[2022-06-19 10:48] LABS: Alanine Aminotransferase 15 U/L (0-31); Albumin Level 3.8 g/dL (3.5-5.0); Alkaline Phosphatase 62 U/L (39-117); Anion Gap 12 (12-20); Aspartate Amino Transferase 19 U/L (5-31); Bilirubin Total 0.4 mg/dL (0.0-1.0); Blood Urea Nitrogen 24 mg/dL (9-16); Calcium 9.1 mg/dL (8.4-10.2); Carbon Dioxide 30 mmol/L (22-29); Chloride 106 mmol/L (96-108); Cholesterol 159 mg/dL; Estimated Glomerular Filt Rate 53; Glucose Random 94 mg/dL (60-115); HDL Cholesterol 50 mg/dL; Iron 60 mcg/dL (30-160); LDL Cholesterol Calculated 92 mg/dl; Percent Iron Saturation 23 % (15-50); Potassium 3.9 mmol/L (3.3-5.1); Sodium 144 mmol/L (135-145); Total Iron Binding Capacity 258 mcg/dL (228-428); Total Protein 7.2 g/dL (6.5-8.0); Triglycerides 87 mg/dL; Unsaturated Iron Binding 198 ug/dL; Uric Acid 4.5 mg/dL (2.4-5.7)
[2022-06-19 11:18] LABS: Ferritin 58 ng/mL (10-250); Folate 10.3 ng/mL (> or = 4.0); Free T4 (Free Thyroxine) 0.99 ng/dL (0.71-1.85); Thyroid Stimulating Hormone 1.14 uIU/mL (0.32-4.0); Vitamin B12 1579 pg/mL (200-900); Vitamin D 25-OH Total 36.3 ng/mL (>30)
== END 2022-06-19 09:24 | disposition home or self-care (01) ==
LOC: HO.LAB 09:23
PROVIDERS: PCP Internal Medicine; Visit Provider Internal Medicine
DX: E78.00 Pure hypercholesterolemia, unspecified (principal); I10 Essential (primary) hypertension; D64.9 Anemia, unspecified; E55.9 Vitamin D deficiency, unspecified
CPT/HCPCS: 36415; 80053; 80061; 81001; 82306; 82607; 82728; 82746; 83540; 84439; 84443; 84550; 85025; 85045; 99212

== ENCOUNTER → 2022-07-19 10:13 | Outpatient (BNVA) | payer MEDICARE, MEDICAID, SELFPAY | PROVIDERS: PCP Internal Medicine; Visit Provider Dietitian, Registered | DX: E66.01 Morbid (severe) obesity due to excess calories (principal); Z68.41 Body mass index [BMI] 40.0-44.9, adult | CPT/HCPCS: 97803 ==

== ENCOUNTER 2022-08-10 10:27 | Outpatient (REF) | payer MEDICARE, MEDICAID, SELFPAY ==
--- NOTE | ~2022-08-10 | MM_ITS ---
EXAMINATION: MM SCREENING DIGITAL BREAST TOMOSYNTHESIS, BILATERAL CLINICAL INFORMATION: Screening. Asymptomatic. Family history breast cancer, mother, sister. The lifetime risk of breast cancer based on the Tyrer-Cuzick Model is 6%. COMPARISON: Mammography: 07/02/2021, 03/27/2020, 09/20/2019, 03/09/2019, 02/19/2019 TECHNIQUE: Digital breast tomosynthesis is performed in both the craniocaudal and mediolateral oblique views along with computer-aided detection (CAD). Synthesized 2D images are generated from the tomosynthesis. FINDINGS: There are scattered areas of fibroglandular density (ACR BI-RADS breast composition Category b). There are no significant masses, abnormal calcifications, or other abnormalities. Parenchymal pattern is similar to prior studies. There is no developing density or architectural abnormality. Again, there is incidental intramammary node mid upper outer right breast and an incidental tiny circumscribed nodule/oil cyst medial right breast, decreased since 2019. The axilla and skin contours are unremarkable. No significant changes. MM/MM tomosynthesis screening BI IMPRESSION: No mammographic evidence of malignancy. ASSESSMENT: BI-RADS 2: Benign RECOMMENDATION: Routine annual mammography screening. This patient's information was entered into a reminder system with a target due date for their next mammogram.
== END 2022-08-10 10:28 | disposition home or self-care (01) ==
LOC: HO.MAMMO 10:27
PROVIDERS: PCP Internal Medicine; Visit Provider Internal Medicine
DX: Z12.31 Encounter for screening mammogram for malignant neoplasm of breast (principal)
CPT/HCPCS: 77063; 77067

== ENCOUNTER 2022-12-06 11:50 | Outpatient (AMB) | payer MEDICARE, MEDICAID, SELFPAY ==
--- NOTE | 2022-12-06 11:57 | A.OFFVIS_ITS ---
Intake Intake Visit Reasons: OV - Left Hip Bursitis - last injection 03/18/22 Intake Note: Erlinda is a 71 year old female who presents today with complaints of left hip & Left knee pain pain,?Last injections done 03/18/22. Patient reports that she had good relief with the last set of injections and she would like to repeat both injections today. Allergies penicillin V Allergy (Unknown, Verified 12/06/22 11:58) Unknown Sulfa (Sulfonamide Antibiotics) Allergy (Unknown, Verified 12/06/22 11:58) unknon Benadryl Allergy (Unknown, Uncoded 12/06/22 11:58) Unknown HPI OV - Left Hip Bursitis - last injection 03/18/22 HPI Details Eunice Sanders is a 71 year old woman who returns to discuss her left hip Bursitis & knee OA. She has a hx of left hip and left knee injections, her last was on 03/18/22. She has pain with daily & weight-bearing activities, her hip pain is in the lateral aspect but she also has some groin pain that radiates down her leg. She would like to repeat injections today. She says she has been active at home taking care of her family. She has some stressors at home which have been making things difficult. She has not been exercising regularly and is frustrated by her inability to lose weight. She says she was bitten by a spider on her ankle in [place] several months ago, which made walking difficult [facility] Medical History Anemia Bilateral primary osteoarthritis of knee Cataract Gout Greater trochanteric bursitis of both hips Hypertension Obesity Physical deconditioning Preop examination Sarcoidosis Surgical History H/O colonoscopy H/O esophagogastroduodenoscopy History of hysterectomy Hx of tonsillectomy Family History Mother No problems noted. Father No problems noted. 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 Cognitive needs: No Hearing needs: No Vision needs: Yes Review of Systems Const All systems reviewed & are unremarkable except as noted in HPI and below Physical Exam Const General: no acute distress, alert and awake Orientation/consciousness: patient oriented x3 HEENT Head: Yes normocephalic and Yes atraumatic Eyes EOM: EOMs intact bilaterally Resp Effort & Inspection: normal respiratory effort and able to speak in complete sentences Cardio Jugular venous distension: no JVD Skin General skin exam: turgor normal Rashes: no rashes Neuro General: patient oriented x3 Extrem Other: Left Hip: Skin C/D/I TTP left greater trochanter Left Knee: Skin C/D/I TTP medial & lateral joint line Mild effusion Psych Appearance: grossly normal Affect: normal affect Attitude: cooperative Office Procedures Joint Injection/Drain Joint Injection/Drain Details: Injected 1 mL of Decadron and 3 mL 1% lidocaine and 3 mL of 0.25% Marcaine. Site was prepped using aseptic technique. Patient tolerated the procedure well. Primary Site: other (Left greater trochanter) Approach Used: posterolateral Coding 39838 - Large joint Procedure code (CPT) selection complete Results Reviewed Results Reviewed: 12/06/22 12:01 BUPivacaine MPF 0.25 % [Sensorcaine-MPF 0.25% 10 ML] 10 ml .ROUTE .STK-MED ONE Lidocaine HCl 1 % [Xylocaine 1 %] 2 ml .ROUTE .STK-MED ONE Lidocaine HCl 2 % MPF [Xylocaine 2 % MPF] 5 ml .ROUTE .STK-MED ONE dexAMETHasone sod phosphate [Decadron] 4 mg .ROUTE .STK-MED ONE Assessment & Plan Assessment & Plan (1) Greater trochanteric bursitis of left hip: Code(s): M70.62 - Trochanteric bursitis, left hip Plan: This is a 71 year old woman who presents with left trochanteric bursitis as well as left knee OA. She has a Hx of good relief from steroid injections and would like repeat injections today. I injected her left greater trochanter and left knee, which she tolerated well, and recommend she work on increasing her daily exercise as well as weight management. She can follow up prn. (2) Osteoarthritis of left knee: Code(s): M17.12 - Unilateral primary osteoarthritis, left knee Plan: Injected Plan Scribed for Matthew Mallory MD by Daniel Hanley, medical insurance coder, on 12/06/22 at 12:05 PM, EST. Coding Level of Care Code Est Pt Level 3 (67017) Diagnoses Greater trochanteric bursitis of left hip M70.62 Osteoarthritis of left knee M17.12 CPT Codes Coding - 90467 Large joint: 17706 - Large joint ([id number])
== END 2022-12-06 12:19 | disposition home or self-care (01) ==
PROVIDERS: PCP Internal Medicine; Visit Provider Orthopaedic Surgery
DX: M70.62 Trochanteric bursitis, left hip (principal); M17.12 Unilateral primary osteoarthritis, left knee
CPT/HCPCS: 20610; 99214

== ENCOUNTER → 2022-12-06 11:50 | Outpatient (BNVA) | payer MEDICARE, MEDICAID, SELFPAY | PROVIDERS: PCP Internal Medicine; Visit Provider Orthopaedic Surgery | DX: M70.62 Trochanteric bursitis, left hip (principal); M17.12 Unilateral primary osteoarthritis, left knee | CPT/HCPCS: 20610; J1100 ==

== ENCOUNTER 2023-02-14 10:33 | Outpatient (REF) | payer MEDICARE, MEDICAID, SELFPAY ==
[2023-02-14 12:45] LABS: Iron 53 mcg/dL (30-160); Percent Iron Saturation 23 % (15-50); Total Iron Binding Capacity 232 mcg/dL (228-428); Unsaturated Iron Binding 179 ug/dL
== END 2023-02-14 10:34 | disposition home or self-care (01) ==
LOC: HO.LAB 10:33
PROVIDERS: PCP Internal Medicine; Visit Provider Physician Assistant Medical
DX: L65.0 Telogen effluvium (principal); L81.9 Disorder of pigmentation, unspecified; L85.3 Xerosis cutis
CPT/HCPCS: 36415; 83540

== ENCOUNTER 2023-02-18 16:17 | Outpatient (AMB) | payer MEDICARE, MEDICAID, SELFPAY ==
--- NOTE | 2023-02-18 16:18 | MHC.PC.OV ---
Intake Visit Reasons: cold symptoms Allergies penicillin V Allergy (Unknown, Verified 02/18/23 16:32) Unknown Sulfa (Sulfonamide Antibiotics) Allergy (Unknown, Verified 02/18/23 16:32) unknon Benadryl Allergy (Unknown, Uncoded 02/18/23 16:32) Unknown Medication List - Last Reconciled 02/18/23 by [place] allopurinol 300 mg PO DAILY ascorbate calcium (vitamin C) 500 mg PO BID 90 days benzonatate 200 mg PO BID-TID PRN cyanocobalamin (vitamin B-12) 1,000 mcg PO DAILY 90 days diltiazem HCl 240 mg PO DAILY 90 days ferrous sulfate (FeroSul) 325 mg PO BID 90 days hydrochlorothiazide 25 mg PO DAILY 90 days metoprolol succinate ER 100 mg PO DAILY multivitamin (One-A-Day Essential tablet) 1 tab PO DAILY Tobacco use date assessed: 06/17/22 Fall risk assessment: No Falls in past year Last assessed Fall Risk: 02/18/23 Dental Screening Dental Screen Date: 02/18/23 Did you have a dental visit in the last 12 months?: No Did you have a dental problem in the last 6 months where you did not have access to dental care?: No Was dental information given to patient?: No HPI cold symptoms HPI Details This is a telehealth visit and patient was verified by name and date of . Patient is a 72-year-old female who presents today for the same day visit due to ongoing cough for the past 3 days with mild yellow phlegm production also dry cough as well. She also reports sore throat, reports chills, reports intermittent wheezing. Reports chest is sore from coughing. Reports using benzonatate with no improvement in cough. Reports negative COVID test 3 days ago. Reports sick contact. No shortness of breath. No COPD or asthma. [facility] Medical History COVID-19 virus infection Cataract Preop examination Anemia Obesity Hypertension Physical deconditioning Greater trochanteric bursitis of both hips Bilateral primary osteoarthritis of knee Sarcoidosis Gout Surgical History H/O colonoscopy H/O esophagogastroduodenoscopy Hx of tonsillectomy History of hysterectomy Family History Mother No problems noted. Father No problems noted. 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 1. Little interest or pleasure in doing things: not at all 2. Feeling down, depressed, or hopeless: not at all 3. Trouble falling or staying asleep, or sleeping too much: not at all 4. Feeling tired or having little energy: not at all 5. Poor appetite or overeating: not at all 6. Feeling bad about yourself - or that you are a failure or have let yourself or your family down: not at all 7. Trouble concentrating on things, such as reading the newspaper or watching television: not at all 8. Moving or speaking so slowly that other people could have noticed. Or the opposite - being so fidgety or restless that you have been moving around a lot more than usual: not at all 9. Thoughts that you would be better off or of hurting yourself in some way: not at all Total score: 0 Depression Screening Interpretation: Negative Depression Screening Done: Yes 03459 - PHQ-9 Billing: Yes Source: Developed by Drs. Edson Mcarthur, Lolis Conrad, Aidan Dorsey and colleagues, with an educational rodriguez from [employer]. Thrive Questionnaire Date Thrive assessed: 06/17/22 AUDIT C Alcohol Use Questionnaire (AUDIT-C) 1. How often do you have a drink containing alcohol?: Never 3. How often do you have six or more drinks on one occasion?: Never Total Score: 0 Score Reviewed/Action Taken: No TESSIE-7 AMB Questionnaire TESSIE-7 Date TESSIE - 7 assessed: 06/17/22 Source: Developed by Drs. Edson Mcarthur, Lolis Conrad, Aidan Dorsey and colleagues, with an educational rodriguez from [employer]. Review of Systems Const Denies body aches, Denies chills, Denies fever(s) and Denies headache(s) ENT Denies dizziness, Denies otalgia, Denies headache(s), Denies nasal discharge, Denies sinus pain and Reports sore throat Card Denies chest pain at rest, Denies lightheadedness and Denies dyspnea Resp Reports cough, Denies dyspnea and Reports wheezing GI Denies abdominal pain Musc Denies myalgias Neuro Denies dizziness and Denies headache(s) Aller/Immun Reports wheezing Physical exam (Primary Care) Tobacco/Smoking Status: Tobacco use Status Tobacco use date assessed 06/17/22 02/18/23 16:19 Patient Tobacco Use Status Never used Tobacco 02/18/23 16:19 e-Cigarette/Vaping Use Never Used 02/18/23 16:19 PHQ-9: PHQ-9 Score PHQ-9: Total score 0 02/18/23 16:21 Depression Screening Interpretation: Negative Thrive Assessment: Date of Thrive Assessment Date Thrive assessed 06/17/22 02/18/23 16:19 Const Other: Telehealth visit, unable to obtain physical exam Speech is normal Telehealth Telehealth Location of provider rendering services: practice address Location of patient: address on file Patient Identification confirmed using: Name, : Yes Telehealth method: voice only (Android ) Patient verbally consented to treatment: Yes Patient verbally consented to billing insurance company: Yes Patient informed of any privacy concerns related to visit: Yes Minutes spent on Phone/Video with Pt.: 25 Assessment and Plan Assessment & Plan (1) Cough: Code(s): R05.9 - Cough, unspecified Plan: Patient with cough and yellow phlegm production for the past 3 days which is not improving. Will treat with doxycycline for 5 days and Ventolin inhaler p.r.n.. Continue benzonatate p.r.n.. Increase fluid consumption. Signs and symptoms reviewed when to notify provider or go to the emergency department. Patient agreed with the plan. Medications: New albuterol sulfate 90 mcg/actuation (Ventolin HFA) 2 puffs inhalation Q4-6H PRN 8.5 grams 0RF shortness of breath or wheezing R05.9 - Cough, unspecified doxycycline hyclate 100 mg PO BID 10 tabs 0RF R05.9 - Cough, unspecified Coding Level of Care Code Tele Est Pt Level 3 (24711) Diagnoses Cough R05.9
== END 2023-02-18 16:44 | disposition home or self-care (01) ==
LOC: HO.HMGH 16:17
PROVIDERS: PCP Internal Medicine; Visit Provider Nurse Practitioner Family
DX: R05.9 Cough, unspecified (principal)
CPT/HCPCS: 99443

== ENCOUNTER 2023-02-26 13:08 | Outpatient (AMB) | payer MEDICARE, MEDICAID, SELFPAY ==
[2023-02-26 13:11] VITALS: BP 140/86; PULSE 83; O2SAT 98; BMI 40.6
--- NOTE | 2023-02-26 13:11 | A.OFFPC_ITS ---
Vital Signs 02/26/23 13:11 Height 5 ft 3 in Weight 229 lb 6 oz BMI 40.6 BP 140/86 H Blood Pressure Location Lt brachial Position Sitting Pulse 83 Pulse Source Pulse Oximeter Pulse Oximetry (%) 98 Oxygen Delivery Method Room Air Intake Visit Reasons: continued cough Intake Note: Patient is experiencing a persistent dry cough for two weeks with loose stools. According to the patient, the cough is worsening and hasn't improved with antibiotics. Patient denies any exposure to COVID-19 in the last 14 days and reports no vomiting or high fever. Pt is requesting a Rx for Azithromycin, which has been more effective. The patient visited a walk-in clinic on Friday but was turned away. 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 Accompanied by: Self / Same As Patient Allergies penicillin V Allergy (Unknown, Verified 02/26/23 13:32) Unknown Sulfa (Sulfonamide Antibiotics) Allergy (Unknown, Verified 02/26/23 13:32) unknon Benadryl Allergy (Unknown, Uncoded 02/18/23 16:32) Unknown Tobacco use date assessed: 06/17/22 Fall risk assessment: No Falls in past year Last assessed Fall Risk: 02/26/23 Dental Screening Dental Screen Date: 02/26/23 Did you have a dental visit in the last 12 months?: No Did you have a dental problem in the last 6 months where you did not have access to dental care?: No Was dental information given to patient?: Patient has dentist HPI continued cough HPI Details Patient is a 72-year-old female here today for a continued cough over the last 4 weeks. Was evaluated last week and was started on doxycycline. She reports her cough isn't any better. She continues on cough suppressants without much relief. Was tested for COVID /flu and RSV- PFSH Medical History COVID-19 virus infection Cataract Preop examination Anemia Obesity Hypertension Physical deconditioning Greater trochanteric bursitis of both hips Bilateral primary osteoarthritis of knee Sarcoidosis Gout Surgical History H/O colonoscopy H/O esophagogastroduodenoscopy Hx of tonsillectomy History of hysterectomy Family History Mother No problems noted. Father No problems noted. 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 Edson Mcarthur, Lolis Conrad, Aidan Dorsey and colleagues, with an educational rodriguez from [employer]. Review of Systems Const Reports headache(s) Eyes Denies loss of vision ENT Denies vertigo, Denies dizziness, Reports facial pain, Reports headache(s), Reports nasal congestion and Denies sore throat Card Denies chest pain, Denies leg edema and Denies lightheadedness Resp Reports cough, Denies hemoptysis and Denies wheezing GI Denies abdominal pain, Denies melena, Denies constipation, Denies diarrhea and Denies vomiting Denies urinary frequency, Denies dysuria and Denies urinary urgency Musc Denies arthralgias, Denies joint swelling, Denies numbness and Denies tingling Neuro Denies Abnormal speech present, Denies behavioral changes, Denies vertigo, Denies dizziness, Reports headache(s), Denies loss of vision, Denies memory loss, Denies numbness and Denies tingling Psych Denies anxiety, Denies behavioral changes, Denies depression, Denies memory loss and Denies panic attacks Bravo/Lymph Denies easy bleeding and Denies easy bruising Aller/Immun Denies wheezing Physical exam (Primary Care) Vital Signs: Last Vital Signs Pulse 83 02/26/23 13:11 BP 140/86 H 02/26/23 13:11 Pulse Ox 98 02/26/23 13:11 Oxygen Delivery Method Room Air 02/26/23 13:11 BMI result Body Mass Index 40.6 Tobacco/Smoking Status: Tobacco use Status Tobacco use date assessed 06/17/22 02/26/23 13:12 Patient Tobacco Use Status Never used Tobacco 02/26/23 13:12 e-Cigarette/Vaping Use Never Used 02/26/23 13:12 Thrive Assessment: Date of Thrive Assessment Date Thrive assessed 06/17/22 02/26/23 13:12 Const General: healthy appearing, no acute distress, alert and awake Nutritional Appearance: well nourished Orientation/consciousness: oriented to person, oriented to place and oriented to time HENMT Ears: TM's normal bilaterally General nose exam: Normal nasal mucous membranes and turbinates present Eyes Conjunctivae: conjunctivae normal Sclerae: sclerae normal Pupils: Equal, round and reactive pupils present Neck Neck: Yes no lymphadenopathy and Yes no JVD Thyroid: Thyroid normal Carotids: no bruits Resp Effort & Inspection: normal respiratory effort and not tachypneic Auscultation: no crackles, no rales, no rhonchi and no wheezes Cardio Rate: regular rate Rhythm: regular rhythm Heart sounds: no murmurs and normal S1 and S2 GI Palpation (GI): Soft to palpation, nontender, no hepatomegaly and no splenomegaly Auscultation: normal bowel sounds Skin General skin exam: no rashes or lesions noted and dry skin Neuro General: oriented to person, oriented to place and oriented to time Cranial nerves: Yes Equal, round and reactive pupils present Speech: No Abnormal speech present Gait exam (Neuro): Normal gait present Motor exam (neuro): no tremor noted Extrem Right upper extremity: full ROM Left upper extremity: full ROM Right lower extremity: full ROM; no edema Left lower extremity: full ROM; no edema Psych Mental Status: mental status grossly normal Speech and movement: Normal speech and movement present Affect: normal affect Attitude: cooperative Thought process: Normal thought process present Assessment and Plan Assessment & Plan (1) URI, acute: Code(s): J06.9 - Acute upper respiratory infection, unspecified Plan: Likely viral though requesting an Zpack antibiotic which has worked well for her. Symptoms have been ongoing for last 4weeks. No more sinus congestion rather than cough. Advised continue [id number] cough cold medications. Advised to hold antibiotic for few days before taking. Swab for flu RSV and COVID today. Orders: Orders XR chest 2V 02/26/23 J06.9 - Acute upper respiratory infection, unspecified SARS-CoV2/FLU/RSV 02/26/23 J06.9 - Acute upper respiratory infection, unspecified Medications: New azithromycin For 250 mg dose pack: take 500 mg today (day 1), then 250 mg for 4 days (days 2-5) PO 6 tabs 0RF J06.9 - Acute upper respiratory infection, unspecified Discontinued benzonatate Discontinued Reason: Doctor's Order 200 mg PO BID-TID PRN 30 caps 0RF cough Coding Level of Care Code Est Pt Level 3 (06996) Diagnoses URI, acute J06.9
== END 2023-02-26 14:10 | disposition home or self-care (01) ==
PROVIDERS: PCP Internal Medicine; Visit Provider Physician Assistant
DX: J06.9 Acute upper respiratory infection, unspecified (principal)
CPT/HCPCS: 99213

== ENCOUNTER 2023-02-26 14:14 | Outpatient (REF) | payer MEDICARE, SELFPAY ==
--- NOTE | ~2023-02-26 | XR_ITS ---
EXAMINATION: XR CHEST CLINICAL INFORMATION: Acute upper respiratory infection. COMPARISON: None available. TECHNIQUE: 2 views of the chest were obtained. FINDINGS: No significant abnormality is noted involving the heart, lungs, mediastinum, or soft tissues. Degenerative changes. XR/XR chest 2V IMPRESSION: No acute cardiopulmonary disease.
[2023-02-26 15:04] LABS: Influenza A PCR NEGATIVE (Negative); Influenza B PCR NEGATIVE (Negative); Resp Syncy Virus RNA Qual PCR POSITIVE (Negative); SARS COV2 PCR INHOUSE NEGATIVE (Negative)
== END 2023-02-26 14:15 | disposition home or self-care (01) ==
LOC: HO.XRAY 14:14
PROVIDERS: PCP Internal Medicine; Visit Provider Physician Assistant
DX: Z11.52 Encounter for screening for COVID-19 (principal); Z20.822 Contact with and (suspected) exposure to COVID-19; J06.9 Acute upper respiratory infection, unspecified
CPT/HCPCS: 0241U; 71046

== ENCOUNTER 2023-03-05 10:41 | Outpatient (AMB) | payer MEDICARE, SELFPAY ==
--- NOTE | 2023-03-05 10:43 | MHC.OFFWIV ---
Intake Vital Signs 03/05/23 10:46 Weight 105.233 kg BP 120/78 Blood Pressure Location Rt brachial Position Sitting Pulse 69 Pulse Source Pulse Oximeter Temp 97.4 F Temp Source Oral Pulse Oximetry (%) 97 Oxygen Delivery Method Room Air Intake Visit Reasons: EP, sore throat (masked) Intake Note: Patient here for sore throat. she has been sick for over a month. she did have rsv about 1 week ago. Patient Tobacco Use Status: Never used Tobacco Allergies penicillin V Allergy (Unknown, Verified 03/05/23 10:46) Unknown Sulfa (Sulfonamide Antibiotics) Allergy (Unknown, Verified 03/05/23 10:46) unknon Benadryl Allergy (Unknown, Uncoded 03/05/23 10:46) Unknown Do you need a note to return to daycare/school/sports/work: No HPI HPI Comments History of Present Illness Details 1059 72-year-old female presents with fatigue malaise sore throat, going on for the past 2 months not feeling well, she was recently RSV positive and was coughing 1 so she is not sure if this is contributing to pain. Denies recent sick contacts. Still eating and drinking. No changes in voice, drooling, fevers, chills, nausea, vomiting, abdominal pain, headache, vision changes, dizziness and weakness. Physical exam With faint wheezing bilaterally likely viral pharyngitis, unlikely bacterial pharyngitis, epiglottitis, peritonsillar retropharyngeal abscess, acute threat to airway. wheezing likely secondary to recent RSV infection. Unlikely pulmonary embolism, pneumonia. Strep negative. Educated on supportive measures. Educated patient on diagnosis and treatment plan, answered all question, patient verbalizes understanding. At this time patient will be discharged home, advised to return with new or worsening symptoms. Educated on worrisome signs and symptoms and when to return. At this time I feel comfortable discharge home. [facility] Medical History COVID-19 virus infection Cataract Preop examination Anemia Obesity Hypertension Physical deconditioning Greater trochanteric bursitis of both hips Bilateral primary osteoarthritis of knee Sarcoidosis Gout Surgical History H/O colonoscopy H/O esophagogastroduodenoscopy Hx of tonsillectomy History of hysterectomy Family History Mother No problems noted. Father No problems noted. 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 Cognitive needs: No Hearing needs: No Vision needs: Yes Review of Systems Const Details: Constitutional : No Weight loss, No Fever, No Chills, No Fatigue, No Malaise ENT/Mouth : + sore throat, No Rhinorrhea Eyes: No Eye Pain, No Swelling, No Redness Cardiovascular : No Chest Pain, No SOB, No Dyspnea on Exertion, No Orthopnea, No Edema, No Palpitations Respiratory : No Cough, No Sputum, No Wheezing Gastrointestinal : No Nausea, No Vomiting, No Diarrhea, No Constipation, No abdominal Pain, No Hematochezia, No Melena Genitourinary : No Dysuria, No Urinary Frequency, No Hematuria, Musculoskeletal : No joint pain, No Myalgias, No Joint Swelling Skin : No Skin Lesions, No rash Neuro : No Weakness, No Numbness, No Dizziness, No Headache Psych : No Anxiety/Panic, No Depression All other systems reviewed and are negative All systems reviewed & are unremarkable except as noted in HPI and below Physical Exam Vital Signs: Last Vital Signs Temp 97.4 F 03/05/23 10:46 Pulse 69 03/05/23 10:46 BP 120/78 03/05/23 10:46 Pulse Ox 97 03/05/23 10:46 Oxygen Delivery Method Room Air 03/05/23 10:46 vss Appearance: Alert.? Oriented X3.? No acute distress.? Head: Normocephalic, atraumatic, no step-offs or deformities Eyes: Pupils equal, round and reactive to light.? ENT: Pharynx normal.? Uvula midline. Normal posterior pharynx. Normal tonsils, no exudate or abscess. Speaking in full sentences controlling secretions well. Neck: Normal inspection.? Neck supple.? CVS: Normal heart rate and rhythm.? Pulses normal.? Respiratory: No respiratory distress.? Breath sounds Faint wheezing bilaterally.? Abdomen: Soft and nontender.? Skin: Skin warm and dry.? Normal skin color.? Normal skin turgor.? Extremities: No lower extremity edema.? No calf ttp. 5/5 strength to bilateral upper and lower extremities Neuro: Oriented X 3.? No motor deficit.? No sensory deficit. CN 2-12 intact Results AMB Rapid Strep AMB Rapid Strep Negative Last Edit by RC Morales on 03/05/23 10:59 Assessment & Plan Assessment & Plan (1) Pharyngitis: Code(s): J02.9 - Acute pharyngitis, unspecified (2) Viral illness: Code(s): B34.9 - Viral infection, unspecified Plan Take your medications as prescribed. If you were prescribed antibiotics today, it is important that you take your medication to their entirety, do not skip any doses, do not finish them early. Follow-up with your primary care provider this week. Return to the emergency department with new or worsening symptoms. Such as fevers, chills, chest pain, shortness of breath, nausea, vomiting, dizziness, headache, vision changes, lethargy In case of emergency call 911 Please do salt water gargles 2 times a day Orders: Orders AMB Rapid Strep Screen Today Z13.9 - Encounter for screening, unspecified Medications: New prednisone 20 mg PO DAILY 5 tabs 0RF 5 days albuterol sulfate 90 mcg/actuation 2 puffs inhalation Q6H PRN 6.7 grams 0RF shortness of breath or wheezing Coding Level of Care Code Est Pt Level 3 (20742) Diagnoses Pharyngitis J02.9 Viral illness B34.9
[2023-03-05 10:46] VITALS: BP 120/78; PULSE 69; TEMP 36.3; O2SAT 97
== END 2023-03-05 12:18 | disposition home or self-care (01) ==
PROVIDERS: PCP Internal Medicine; Visit Provider Physician Assistant
DX: J02.9 Acute pharyngitis, unspecified (principal); B34.9 Viral infection, unspecified
CPT/HCPCS: 87880; 99213

== ENCOUNTER 2023-03-28 11:26 | Outpatient (AMB) | payer MEDICARE, MEDICAID, SELFPAY ==
--- NOTE | 2023-03-28 11:30 | A.OFFVIS_ITS ---
Intake Vital Signs 03/28/23 11:36 03/28/23 12:08 Height 5 ft 3 in Weight 232 lb 2 oz BMI 41.1 BP 142/82 H 138/70 Blood Pressure Location Lt brachial Lt brachial Position Sitting Sitting Pulse 68 Pulse Source Palpation Intake Visit Reasons: Hypertension Housing Director Required: No Accompanied by: Self / Same As Patient Allergies penicillin V Allergy (Unknown, Verified 03/28/23 11:38) Unknown Sulfa (Sulfonamide Antibiotics) Allergy (Unknown, Verified 03/28/23 11:38) unknon Benadryl Allergy (Unknown, Uncoded 03/28/23 11:38) Unknown HPI Hypertension HPI Details 72-year-old obese female with hypertensi on anemia coming in for follow- up last seen in September 2022. Patient is up-to-date with mammogram colonoscopy. [facility] for pharyngitis fat multiple visits.. Patient also follows up with Hematology Oncology for the normocytic anemia B12 deficiency and iron deficiency. November seen ortho for left hip left knee pain injections done. no fevers, cough is better PFSH Medical History (Updated 03/28/23 @ 12:04 by Eduardo Guaman MD) Obesity Colon cancer screening COVID-19 virus infection Cataract Preop examination Anemia Hypertension Physical deconditioning Greater trochanteric bursitis of both hips Bilateral primary osteoarthritis of knee Sarcoidosis Gout Surgical History H/O colonoscopy H/O esophagogastroduodenoscopy Hx of tonsillectomy History of hysterectomy Family History Mother No problems noted. Father No problems noted. 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 Edson Mcarthur, Lolis Conrad, Aidan Dorsey and colleagues, with an educational rodriguez from [employer]. Physical Exam Vital Signs: Last Vital Signs Pulse 68 03/28/23 11:36 BP 142/82 H 03/28/23 11:36 BMI result Body Mass Index 41.1 Const General: alert; No acute distress Eyes Conjunctivae: conjunctivae normal Resp Auscultation: clear to auscultation bilaterally Cardio Rate: regular rate Rhythm: regular rhythm GI Inspection: Yes normal to inspection Extrem General: Yes normal to inspection and No edema Assessment & Plan Assessment & Plan (1) Anemia: Comment: Anemia and unknown etiology- Having blood work over the next week or so with PCP Will put in order to have a urine to r/o for hematuria Code(s): D64.9 - Anemia, unspecified Plan: Iron and B12 deficiency resolved (2) Hypertension: Code(s): I10 - Essential (primary) hypertension Qualifiers: Hypertension type: essential hypertension Qualified Code(s): I10 - Essential (primary) hypertension Plan: Continue with blood pressure medication. Decrease salt intake and exercise takes diltiazem 240 mg once a day hydrochlorothiazide 25 mg once a day metoprolol 100 mg once a day (3) Obesity: Code(s): E66.9 - Obesity, unspecified Qualifiers: Obesity type: due to excess calories Obesity classification: adult class 3 (BMI >= 40) Serious obesity comorbidity presence: with serious comorbidity Body mass index: BMI 40.0-44.9 Qualified Code(s): E66.01 - Morbid (severe) obesity due to excess calories; Z68.41 - Body mass index [BMI]40.0- 44.9, adult Plan: Diet and exercise Orders: Orders Comprehensive Met. Panel 3 Months I10 - Essential (primary) hypertension Vitamin D 25-OH Total 3 Months I10 - Essential (primary) hypertension Complete Blood Count Auto Diff 3 Months I10 - Essential (primary) hypertension Free T4 (Free Thyroxine) 3 Months I10 - Essential (primary) hypertension Thyroid Stimulating Hormone 3 Months I10 - Essential (primary) hypertension Ferritin 3 Months I10 - Essential (primary) hypertension Lipid Panel 3 Months E78.00 - Pure hypercholesterolemia, unspecified, I10 - Essential (primary) hypertension IRON PROFILE 3 Months I10 - Essential (primary) hypertension Reticulocyte Count 3 Months I10 - Essential (primary) hypertension Vitamin B12 and Folate 3 Months I10 - Essential (primary) hypertension Coding Level of Care Code Est Pt Level 4 (18755) Diagnoses Anemia D64.9 Essential hypertension I10 Hypertension type: essential hypertension Class 3 severe obesity due to excess calories with serious comorbidity and body mass index (BMI) of 40.0 to 44.9 in adult E66.01; Z68.41 Obesity type: due to excess calories Obesity classification: adult class 3 (BMI >= 40) Serious obesity comorbidity presence: with serious comorbidity Body mass index: BMI 40.0-44.9
[2023-03-28 11:36] VITALS: BP 142/82; PULSE 68; BMI 41.1
[2023-03-28 12:08] VITALS: BP 138/70
== END 2023-03-28 12:14 | disposition home or self-care (01) ==
PROVIDERS: PCP Internal Medicine; Visit Provider Internal Medicine
DX: D64.9 Anemia, unspecified (principal); I10 Essential (primary) hypertension; E66.01 Morbid (severe) obesity due to excess calories; Z68.41 Body mass index [BMI] 40.0-44.9, adult
CPT/HCPCS: 99214

== ENCOUNTER 2023-05-20 08:05 | Outpatient (REF) | payer MEDICARE, SELFPAY ==
[2023-05-20 08:31] LABS: MANUAL DIFF FLAG NO
[2023-05-20 09:03] LABS: Basophils Percent Auto 0.5 % (0-2); Eosinophils Absolute Auto 0.2 X10*3/uL (0.0-0.4); Eosinophils Percent Auto 2.8 % (0-4); Hematocrit 36.4 % (37.0-47.0); Hemoglobin 11.9 g/dl (12.0-16.0); Imm Gran Abs Auto 0.03 X10*3/uL (0.00-0.03); Imm Gran Pct Auto 0.5 % (0.0-0.4); Immature Retic Fraction 16.1 % (3.0-15.9); Lymphocytes Absolute Auto 2.1 X10*3/uL (1.2-4.9); Lymphocytes Percent Auto 33.3 % (20-40); Mean Corpuscular HGB Conc 32.7 g/dl (31.0-35.0); Mean Corpuscular Hemoglobin 30.9 pg (27.0-33.0); Mean Corpuscular Volume 94.5 fL (80.0-98.0); Mean Platelet Volume 10.4 fL (9.4-12.3); Monocytes Absolute Auto 0.5 X10*3/uL (0.1-1.2); Monocytes Percent Auto 8.1 % (2-11); Neutrophils Absolute Auto 3.4 x10*3/uL (2.0-8.3); Neutrophils Percent Auto 54.8 % (45-73); Platelet Count 197 X10*3/uL (160-400); Red Blood Count 3.85 X10*6/uL (4.20-5.50); Red Cell Distribution Width 13.3 % (11.0-16.0); Retic HGB Equivalent 33.8 pg (30.0-35.0); Reticulocyte Percent 1.3 % (0.5-1.8); Reticulocytes Absolute 0.051 X10*6/uL (0.026-0.095); White Blood Count 6.2 X10*3/uL (4.8-10.8)
[2023-05-20 09:32] LABS: Alanine Aminotransferase 13 U/L (0-31); Albumin Level 3.8 g/dL (3.5-5.0); Alkaline Phosphatase 61 U/L (39-117); Anion Gap 11 (12-20); Aspartate Amino Transferase 17 U/L (5-31); Bilirubin Total 0.2 mg/dL (0.0-1.0); Blood Urea Nitrogen 22 mg/dL (9-16); Calcium 9.4 mg/dL (8.4-10.2); Carbon Dioxide 30 mmol/L (22-29); Chloride 108 mmol/L (96-108); Cholesterol 145 mg/dL (<200); Estimated Glomerular Filt Rate 42; Glucose Random 103 mg/dL (60-115); HDL Cholesterol 48 mg/dL (>40); Iron 60 mcg/dL (30-160); LDL Cholesterol Calculated 82 mg/dL (<100); Percent Iron Saturation 23 % (15-50); Potassium 3.8 mmol/L (3.3-5.1); Sodium 145 mmol/L (135-145); Total Iron Binding Capacity 261 mcg/dL (228-428); Total Protein 7.7 g/dL (6.5-8.0); Triglycerides 77 mg/dL (<150); Unsaturated Iron Binding 201 ug/dL
[2023-05-20 09:49] LABS: Ferritin 65 ng/mL (10-250); Free T4 (Free Thyroxine) 1.12 ng/dL (0.71-1.85); Thyroid Stimulating Hormone 1.28 uIU/mL (0.32-4.0); Vitamin D 25-OH Total 39.7 ng/mL (>30)
[2023-05-20 10:43] LABS: Folate 8.6 ng/mL (> or = 4.0); Vitamin B12 1743 pg/mL (200-900)
== END 2023-05-20 08:06 | disposition home or self-care (01) ==
LOC: HO.LAB 08:05
PROVIDERS: PCP Internal Medicine; Visit Provider Internal Medicine
DX: I10 Essential (primary) hypertension (principal); E78.00 Pure hypercholesterolemia, unspecified
CPT/HCPCS: 36415; 80053; 80061; 82306; 82607; 82728; 82746; 83540; 84439; 84443; 85025; 85045

== ENCOUNTER 2023-07-01 15:23 | Outpatient (AMB) | payer MEDICARE, SELFPAY ==
[2023-07-01 15:34] VITALS: BP 160/90; PULSE 72; O2SAT 96; BMI 42.0
--- NOTE | 2023-07-01 15:35 | MHC.PC.OV ---
Vital Signs 07/01/23 15:34 07/01/23 16:36 Height 5 ft 3 in Weight 237 lb 0.2 oz BMI 42.0 BP 160/90 H 142/80 H Blood Pressure Location Lt brachial Lt brachial Position Sitting Sitting Pulse 72 Pulse Source Pulse Oximeter Pulse Oximetry (%) 96 Oxygen Delivery Method Room Air Intake Visit Reasons: Hypertension Intake Note: Patient is here to follow up on HTN Package Line Operator Required: No Allergies penicillin V Allergy (Unknown, Verified 07/01/23 15:35) Unknown Sulfa (Sulfonamide Antibiotics) Allergy (Unknown, Verified 07/01/23 15:35) unknon Benadryl Allergy (Unknown, Uncoded 07/01/23 15:35) Unknown Medication List - Last Reconciled 07/01/23 by Eduardo Guaman MD albuterol sulfate 90 mcg/actuation (Ventolin HFA) 2 puffs inhalation Q4-6H PRN albuterol sulfate 90 mcg/actuation 2 puffs inhalation Q6H PRN ascorbate calcium (vitamin C) 500 mg PO BID 90 days cyanocobalamin (vitamin B-12) 1,000 mcg PO DAILY 90 days diltiazem HCl 240 mg PO DAILY 90 days ferrous sulfate (FeroSul) 325 mg PO BID 90 days hydrochlorothiazide 25 mg PO DAILY 90 days metoprolol succinate ER 100 mg PO DAILY multivitamin (One-A-Day Essential tablet) 1 tab PO DAILY Tobacco use date assessed: 07/01/23 Fall risk assessment: No Falls in past year Last assessed Fall Risk: 07/01/23 Dental Screening Dental Screen Date: 07/01/23 HPI Hypertension HPI Details 72-year-old morbidly obese female with hypertension and chronic anemia coming in for follow-up. Last seen in March patient's mammogram is up-to-date colonoscopy is up-to-date October 2020. Complains of low back pain and left hip pain deny any fall or trauma. Discussed with the patient that most likely this is going to be arthritis spine as well as the lower back as patient has morbid obesity. Discussed about the blood pressure being uncontrolled she does have medication and she does have a machine at home advised to monitor blood pressure. Patient declined any new medication or adjustment as she wants to lose the weight and retest in 3 months. COUNTS INCLUDE 234 BEDS AT THE [facility] Medical History (Updated 07/01/23 @ 16:38 by Eduardo Guaman MD) Foul smelling urine Obesity Colon cancer screening COVID-19 virus infection Cataract Preop examination Anemia Hypertension Physical deconditioning Greater trochanteric bursitis of both hips Bilateral primary osteoarthritis of knee Sarcoidosis Gout Surgical History H/O colonoscopy H/O esophagogastroduodenoscopy Hx of tonsillectomy History of hysterectomy Family History Mother No problems noted. Father No problems noted. 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 Cognitive needs: No Hearing needs: No Vision needs: Yes Questionnaire Thrive Questionnaire Date Thrive assessed: 07/01/23 I am a: Patient What is your living situation today?: I have a steady place to live Within the past 12 months, did the food you bought not last and you didn't have the money to get more?: Never true Within the past 12 months, did you worry whether your food would run out before you got money to buy more?: Never true Do you have trouble paying for medicines?: No Do you have trouble getting transportation to medical appointments?: No Do you have trouble paying your heating and electricity bill?: No Do you have trouble taking care of your child, family member or friend?: No Do you have trouble with day-to-day activities such as bathing, preparing meals, shopping, managing finances, etc.?: No Are you currently unemployed and looking for a job?: No Are you interested in more education?: No Please select the resources that you would like help with: None THRIVE Score: 0 AUDIT C Alcohol Use Questionnaire (AUDIT-C) 1. How often do you have a drink containing alcohol?: Never 3. How often do you have six or more drinks on one occasion?: Never Total Score: 0 Score Reviewed/Action Taken: No TESSIE-7 AMB Questionnaire TESSIE-7 Date TESSIE - 7 assessed: 07/01/23 Source: Developed by Drs. Edson Mcarthur, Lolis Conrad, Aidan Dorsey and colleagues, with an educational rodriguez from [employer]. Physical exam (Primary Care) Vital Signs: Last Vital Signs Pulse 72 07/01/23 15:34 BP 160/90 H 07/01/23 15:34 Pulse Ox 96 07/01/23 15:34 Oxygen Delivery Method Room Air 07/01/23 15:34 BMI result Body Mass Index 42.0 Tobacco/Smoking Status: Tobacco use Status Tobacco use date assessed 07/01/23 07/01/23 15:36 Patient Tobacco Use Status Never used Tobacco 07/01/23 15:36 e-Cigarette/Vaping Use Never Used 07/01/23 15:36 Thrive Assessment: Date of Thrive Assessment Date Thrive assessed 07/01/23 07/01/23 15:36 Const General: alert; No acute distress Eyes Conjunctivae: conjunctivae normal Resp Auscultation: clear to auscultation bilaterally Cardio Rate: regular rate Rhythm: regular rhythm GI Inspection: Yes normal to inspection Extrem General: Yes normal to inspection and No edema Assessment and Plan Assessment & Plan (1) Morbid obesity: Code(s): E66.01 - Morbid (severe) obesity due to excess calories Plan: Diet and exercise had a long discussion with the patient on helping her lose the weight. (2) Anemia: Comment: Anemia and unknown etiology- Having blood work over the next week or so with PCP Will put in order to have a urine to r/o for hematuria Code(s): D64.9 - Anemia, unspecified Plan: Chronic and will continue to monitor. Patient does have a follow-up with the Hematology-Oncology. (3) Hypertension: Code(s): I10 - Essential (primary) hypertension Qualifiers: Hypertension type: essential hypertension Qualified Code(s): I10 - Essential (primary) hypertension Plan: Continue with blood pressure medication. Decrease salt intake and exercise presently on diltiazem 240 mg once a day hydrochlorothiazide 25 mg once a day metoprolol 100 mg once a day declined due medication. Will do exercise and lose the weight and monitor blood pressure (4) Low back pain: Code(s): M54.50 - Low back pain, unspecified Plan: X-ray to be done (5) Hip pain, left: Code(s): M25.552 - Pain in left hip Plan: X-ray to be done Orders: Orders XR lumbar spine 2-3V Today M54.50 - Low back pain, unspecified XR hip LT w PEL1V Today M25.552 - Pain in left hip Medications: Discontinued prednisone Discontinued Reason: Doctor's Order 20 mg PO DAILY 5 days 5 tabs 0RF Coding Level of Care Code Est Pt Level 4 (09433) Diagnoses Morbid obesity E66.01 Anemia D64.9 Essential hypertension I10 Hypertension type: essential hypertension Low back pain M54.50 Hip pain, left M25.552
[2023-07-01 16:36] VITALS: BP 142/80
== END 2023-07-01 16:51 | disposition home or self-care (01) ==
PROVIDERS: PCP Internal Medicine; Visit Provider Internal Medicine
DX: I10 Essential (primary) hypertension (principal); D64.9 Anemia, unspecified; E66.01 Morbid (severe) obesity due to excess calories; Z68.41 Body mass index [BMI] 40.0-44.9, adult; M54.50 Low back pain, unspecified; M25.552 Pain in left hip
CPT/HCPCS: 99214

== ENCOUNTER 2023-07-15 13:17 | Outpatient (REF) | payer MEDICARE, SELFPAY ==
--- NOTE | ~2023-07-15 | XR_ITS ---
EXAMINATION: XR LUMBOSACRAL SPINE CLINICAL INFORMATION: Low back pain unspecified. COMPARISON: Chest radiograph of 02/28/2023. TECHNIQUE: Three views of the lumbosacral spine. FINDINGS: Levoscoliosis in the lumbar spine. Degenerative changes in the right sacroiliac joint greater than left. Moderate degenerative changes in the imaged lower thoracic spine. 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 Bones are diffusely demineralized. Moderate multilevel lumbar spondylosis. Lumbar disc space heights are preserved. Minimal grade 1 anterolisthesis of L3 on L4. Grade 1 anterolisthesis of L4 on L5. XR/XR lumbar spine 2-3V IMPRESSION: 1. Moderate multilevel lumbar spondylosis. 2. 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 3. Degenerative changes in the right sacroiliac joint greater than left.
--- NOTE | ~2023-07-15 | XR_ITS ---
EXAMINATION: XR HIP, LEFT CLINICAL INFORMATION: Pain. COMPARISON: Prior radiographs, most recently 06/04/2018. TECHNIQUE: AP and frog-leg lateral views of the left hip are submitted, together with frontal views of the pelvis. FINDINGS: Bony alignment and mineralization are normal. There is moderate narrowing of the bilateral acetabular joint space compartments. There is subchondral sclerosis of the acetabular roofs. Small peripheral osteophytes are seen of the articular surfaces of the hips. The femoral heads are smooth. No fracture or dislocation is seen. The bilateral sacroiliac joints are symmetric and well-maintained, and the pubic symphysis is intact. There are pelvic phleboliths. There are incompletely characterized degenerative changes of the lumbar spine. XR/XR hip LT w PEL1V IMPRESSION: There are moderate degenerative changes of the bilateral hips. No fracture or dislocation is seen.
== END 2023-07-15 13:18 | disposition home or self-care (01) ==
LOC: HO.XRAY 13:17
PROVIDERS: PCP Internal Medicine; Visit Provider Internal Medicine
DX: M54.50 Low back pain, unspecified (principal); M25.552 Pain in left hip
CPT/HCPCS: 72100; 73502

== ENCOUNTER 2023-07-24 13:01 | Outpatient (AMB) | payer MEDICARE, SELFPAY ==
--- NOTE | 2023-07-24 13:03 | MHC.OFFVIS ---
Intake Vital Signs 07/24/23 13:05 Height 5 ft 3 in Weight 235 lb BMI 41.6 Intake Visit Reasons: OV-B/L hip injec-last inject for LT hip 12/06/22 Intake Note: Erlinda is a 71 year old female who presents today with complaints of left hip pain, Last injections done 12/06/22. Patient reports that she had adequate relief from the last injection and would like to repeat injection today in the left hip and the left knee. Allergies penicillin V Allergy (Unknown, Verified 07/24/23 13:04) Unknown Sulfa (Sulfonamide Antibiotics) Allergy (Unknown, Verified 07/24/23 13:04) unknon Benadryl Allergy (Unknown, Uncoded 07/24/23 13:04) Unknown HPI OV-B/L hip injec-last inject for LT hip 12/06/22 HPI Details 72 yo F with ongoing left knee and lateral hip pain. She has been getting injection every couple of months. She has been active and recently doing line dancing but her hip and knee were hurting her incision comes in for repeat injection/discussion today. [facility] Medical History (Updated 07/15/23 @ 13:45 by Lidia Epps MD) Foul smelling urine Obesity Colon cancer screening COVID-19 virus infection Cataract Preop examination Anemia Hypertension Physical deconditioning Greater trochanteric bursitis of both hips Bilateral primary osteoarthritis of knee Sarcoidosis Gout Surgical History H/O colonoscopy H/O esophagogastroduodenoscopy Hx of tonsillectomy History of hysterectomy Family History Mother No problems noted. Father No problems noted. 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 Site was prepped using aseptic technique. Patient tolerated the procedure well. Primary Site: left knee Secondary Site: other (Left greater trochanter) Coding - Large joint 53794 - Glenohumeral/Tronchanteric Bursa/Intraarticular Procedure code (CPT) selection complete Results Reviewed Results Reviewed: I personally reviewed relevant radiographs. Bilateral hip osteoarthritis Assessment & Plan Assessment & Plan (1) Hip pain, left: Code(s): M25.552 - Pain in left hip Plan: OA with mild symptoms overall (2) Greater trochanteric bursitis of left hip: Code(s): M70.62 - Trochanteric bursitis, left hip Plan: Injected left trochanteric bursa (3) Osteoarthritis of left knee: Code(s): M17.12 - Unilateral primary osteoarthritis, left knee Plan: Injected left knee Coding Level of Care Code Est Pt Level 4 (30379) Diagnoses Hip pain, left M25.552 Greater trochanteric bursitis of left hip M70.62 Osteoarthritis of left knee M17.12 CPT Codes Coding - Large joint: 04439 - Large joint ([id number]) Coding - Joint 7: 30231 - Glenohumeral/Tronchanteric Bursa/Intraarticular ([id number])
[2023-07-24 13:05] VITALS: BMI 41.6
== END 2023-07-24 13:27 | disposition home or self-care (01) ==
LOC: HO.HOS 13:01
PROVIDERS: PCP Internal Medicine; Visit Provider Orthopaedic Surgery
DX: M70.62 Trochanteric bursitis, left hip (principal); M17.12 Unilateral primary osteoarthritis, left knee
CPT/HCPCS: 20610; 99213

== ENCOUNTER → 2023-07-24 13:01 | Outpatient (BNVA) | payer MEDICARE, SELFPAY | PROVIDERS: PCP Internal Medicine; Visit Provider Orthopaedic Surgery | DX: M70.62 Trochanteric bursitis, left hip (principal); M17.12 Unilateral primary osteoarthritis, left knee; M25.552 Pain in left hip | CPT/HCPCS: 20610; 99212; J0665; J1100 ==

== ENCOUNTER 2023-08-15 10:30 | Outpatient (REF) | payer MEDICARE, SELFPAY | END 2023-08-15 10:31 | disposition home or self-care (01) | LOC: HO.MAMMO 10:30 | PROVIDERS: PCP Internal Medicine; Visit Provider Internal Medicine | DX: Z12.31 Encounter for screening mammogram for malignant neoplasm of breast (principal) | CPT/HCPCS: 77063; 77067 ==

== ENCOUNTER → 2023-08-15 10:30 | Outpatient (BNV) | payer MEDICARE, SELFPAY | PROVIDERS: PCP Internal Medicine; Visit Provider Radiology Diagnostic Radiology | DX: Z12.31 Encounter for screening mammogram for malignant neoplasm of breast (principal) | CPT/HCPCS: 77063; 77067 ==

== ENCOUNTER 2023-08-27 13:45 | Outpatient (AMB) | payer MEDICARE, SELFPAY ==
[2023-08-27 13:52] VITALS: BP 130/80; PULSE 74; TEMP 36.3; O2SAT 96; BMI 42.2
--- NOTE | 2023-08-27 13:52 | AM.OFFWIN_ITS ---
Intake Vital Signs 08/27/23 13:52 Height 5 ft 3 in Weight 238 lb BMI 42.2 BP 130/80 Blood Pressure Location Lt brachial Position Sitting Pulse 74 Pulse Source Pulse Oximeter Temp 97.3 F Temp Source Temporal Artery Scan Pulse Oximetry (%) 96 Oxygen Delivery Method Room Air Intake Visit Reasons: EST/lower back pain (lobby) Intake Note: pt is here today for lower back pain started 2 days ago Patient Tobacco Use Status: Never used Tobacco Allergies penicillin V Allergy (Unknown, Verified 08/27/23 14:10) Unknown Sulfa (Sulfonamide Antibiotics) Allergy (Unknown, Verified 08/27/23 14:10) unknon Benadryl Allergy (Unknown, Uncoded 07/24/23 13:04) Unknown Do you need a note to return to daycare/school/sports/work: No HPI HPI Comments History of Present Illness Details She presents to office with nausea, unwell feeling and back ache Ongoing for a couple of days but has had for over a month Sees Dr. Guaman with PCP She was seen / for this and had xray of lumbar spine which showed chronic changes She also had labs from then and had her B12 decreased. Dr. Guaman follow up in September scheduled She said pain in lower back across back and into lower abdomen No trauma or injury that she recalls Discomfort is intermittent and worse in am when she tried to get up No dysuria, urgency or frequency No hematuria She denies diarrhea or vomiting No SOB or CP No abdominal surgery history aside from hysterectomy in 70s. She tried Tylenol without relief She states pain now is better but previously was 10/10 No urine or bowel incontinence, leg weakness, foot drop PFSH Medical History (Updated 08/27/23 @ 14:28 by Hillary Bains PA-C) Foul smelling urine Obesity Colon cancer screening COVID-19 virus infection Cataract Preop examination Anemia Hypertension Physical deconditioning Greater trochanteric bursitis of both hips Bilateral primary osteoarthritis of knee Sarcoidosis Gout Surgical History H/O colonoscopy H/O esophagogastroduodenoscopy Hx of tonsillectomy History of hysterectomy Family History Mother No problems noted. Father No problems noted. 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 Cognitive needs: No Hearing needs: No Vision needs: Yes Review of Systems Const Denies chills, Reports fatigue, Denies fever(s) and Denies weakness Eyes Denies blurry vision ENT Denies dizziness, Denies nasal discharge and Denies sore throat Card Denies chest pain and Denies dyspnea Resp Denies cough and Denies dyspnea GI Reports abdominal pain (sometimes back pain radiates to lower abdomen), Denies melena, Denies hematochezia, Denies fecal incontinence, Reports diarrhea (hx of IBS but unchanged), Reports nausea and Denies vomiting Denies hematuria, Denies dysuria, Denies urinary incontinence, Denies urinary hesitancy and Denies urinary urgency Musc Reports back pain and Denies tingling Skin/Breast Denies rash Neuro Denies dizziness, Denies focal weakness, Denies tingling, Denies paresthesias and Denies weakness Endo Reports fatigue Physical Exam Vital Signs: Last Vital Signs Temp 97.3 F 08/27/23 13:52 Pulse 74 08/27/23 13:52 BP 130/80 08/27/23 13:52 Pulse Ox 96 08/27/23 13:52 Oxygen Delivery Method Room Air 08/27/23 13:52 BMI result Body Mass Index 42.2 General: Non-toxic, NAD. Speaking full sentences. Skin: Warm dry throughout. No posterior back of flank ecchymosis or vesicular rash. Well healed scar from Lipoma removal to L flank. No leg edema or erythema Eye: EOMI HENT: Airway patent. Uvula midline. No pharyngeal erythema or edema. No DISTRIBUTION CENTER MANAGER. Bilateral canals with some cerumen. TM non-erythematous, non-bulging. Respiratory: CTA bilaterally. No wheezes, rales or rhonchi Cardiac: RRR. No murmur Abdomen: BS present x 4. No tenderness to 4 quadrants. No rebound or guarding. No CVAT MSK: No midline point tenderness. + diffuse lumbar paravertebral muscle tenderness. Negative SLR. 5/5 strength flexion hips bilaterally. Full ROM upper extremities. Neurology: A/O. No aphasia or facial droop. Gait without abnormality Psych: Good mood and affect Results AMB Urinalysis, Automated UA Leukoctes 0 Jenifer/uL Last Edit by Peter Echevarria MA on 08/27/23 14:07 UA Nitrite Negative Last Edit by Peter Echevarria MA on 08/27/23 14:07 UA Urobilinogen 0.2 mg/dL Last Edit by Peter Echevarria MA on 08/27/23 14:07 UA Protein 0 mg/dL Last Edit by Peter Echevarria MA on 08/27/23 14:07 UA pH 6.0 Last Edit by Peter Echevarria MA on 08/27/23 14:07 UA Blood 0 Diomedes/uL Last Edit by Peter Echevarria MA on 08/27/23 14:07 UA Specific [place] 1.015 Last Edit by Peter Echevarria MA on 08/27/23 14:07 UA Ketone Negative Last Edit by Peter Echevarria MA on 08/27/23 14:07 UA Bilirubin 0 mg/dL Last Edit by Peter Echevarria MA on 08/27/23 14:07 UA Glucose 0 mg/dL Last Edit by Peter Echevarria MA on 08/27/23 14:07 Results Reviewed Results Reviewed: Laboratory Last Values Urine pH (Auto) 6.0 08/27/23 14:06 Specific [place] (Auto) 1.015 08/27/23 14:06 Urine Protein (Auto) 0 mg/dL 08/27/23 14:06 Glucose (UA)(Auto) 0 mg/dL 08/27/23 14:06 Urine Ketones (Auto) Negative 08/27/23 14:06 Urine Blood (Auto) 0 Diomedes/uL 08/27/23 14:06 Urine Nitrite (Auto) Negative 08/27/23 14:06 Urine Bilirubin (Auto) 0 mg/dL 08/27/23 14:06 Urine Urobilinogen (Auto) 0.2 mg/dL 08/27/23 14:06 Leukocyte Esterase (Auto) 0 Jenifer/uL 08/27/23 14:06 Assessment & Plan Assessment & Plan (1) Lumbar back pain: Code(s): M54.50 - Low back pain, unspecified Plan: Patient seen and evaluated. U/A: negative blood, infection or protein Lab work and lumbar xray reviewed from 07.15.23. She will trial gentle strentching and muscle relaxant; discussed lethargy. No alcohol or driving or operating heavy machinery Close follow up with PCP Lengthy discussion had about ER warning signs and symptoms such as urine/bowel incontinence, weakness, foot drop, abdominal pain, chest pain dizziness etc Patient gave verbal understanding and had no additional questions or concerns at time of discharge All questions answered Medications: New methocarbamol 500 mg PO TID PRN 14 tabs 0RF muscle pain Coding Level of Care Code Est Pt Level 3 (79349) Diagnoses Lumbar back pain M54.50
== END 2023-08-27 14:53 | disposition home or self-care (01) ==
PROVIDERS: PCP Internal Medicine; Visit Provider Physician Assistant
DX: M54.50 Low back pain, unspecified (principal)
CPT/HCPCS: 99213

== ENCOUNTER 2023-08-31 19:16 | Emergency (ER) | payer MEDICARE, SELFPAY ==
[2023-08-31 19:37] VITALS: BP 117/75; PULSE 69; RESP 20; TEMP 36; O2SAT 96; BMI 41.4
== END 2023-09-01 01:02 | disposition left against medical advice (07) ==
LOC: HO.ED 09-01 00:59
PROVIDERS: Emergency Provider Emergency Medicine; PCP Internal Medicine
DX: M54.50 Low back pain, unspecified (principal); Z53.21 Procedure and treatment not carried out due to patient leaving prior to being seen by health care provider
CPT/HCPCS: 99281

== ENCOUNTER 2023-09-16 16:34 | Outpatient (AMB) | payer MEDICARE, SELFPAY ==
--- NOTE | 2023-09-16 16:34 | MHC.PC.OV ---
Vital Signs 09/16/23 16:35 Height 5 ft 3 in Weight 236 lb BMI 41.8 BP 164/86 H Blood Pressure Location Lt brachial Position Sitting Pulse 78 Pulse Source Pulse Oximeter Pulse Oximetry (%) 95 Oxygen Delivery Method Room Air Intake Visit Reasons: Lower back pain Magnetic Resonance Imaging Coordinator Required: No Allergies penicillin V Allergy (Unknown, Verified 09/16/23 16:35) Unknown Sulfa (Sulfonamide Antibiotics) Allergy (Unknown, Verified 09/16/23 16:35) unknon Benadryl Allergy (Unknown, Uncoded 09/16/23 16:35) Unknown Medication List - Last Reconciled 09/16/23 by Eduardo Hurtado Po, albuterol sulfate 90 mcg/actuation (Ventolin HFA) 2 puffs inhalation Q4-6H PRN ascorbate calcium (vitamin C) 500 mg PO BID 90 days cyanocobalamin (vitamin B-12) 1,000 mcg PO DAILY 90 days diltiazem HCl CD 240 mg PO DAILY 90 days ferrous sulfate (FeroSul) 325 mg PO BID 90 days hydrochlorothiazide 25 mg PO DAILY 90 days methocarbamol 500 mg PO TID PRN metoprolol succinate ER 100 mg PO DAILY multivitamin (One-A-Day Essential tablet) 1 tab PO DAILY semaglutide (weight loss) (Wegovy) 0.25 mg (0.5 mL) subcut QWEEK tramadol 50 mg PO BEDTIME Tobacco use date assessed: 09/16/23 Fall risk assessment: No Falls in past year Last assessed Fall Risk: 09/16/23 Dental Screening Dental Screen Date: 09/16/23 Did you have a dental visit in the last 12 months?: No Did you have a dental problem in the last 6 months where you did not have access to dental care?: No Was dental information given to patient?: Patient has dentist HPI Lower back pain HPI Details 72-year-old morbidly obese female with a history of hypertension anemia had complained of low back pain seen in 06/2023. 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 Patient also follows up with Hematology-Oncology seen 07/15/2023 for the normocytic anemia iron deficiency and B12 deficiency advised to resume iron. As for the x-ray that was done in July moderate degenerative changes bilateral hips no fracture or dislocation seen. Moderate multilevel lumbar spondylosis facet arthritis in the mid to lower lumbar spine and degenerative changes in the sacroiliac right greater than the left. has taken tylenol with no help , also took advil PFSH Medical History (Updated 09/16/23 @ 17:05 by Eduardo Guaman MD) Foul smelling urine Obesity Colon cancer screening COVID-19 virus infection Cataract Preop examination Anemia Hypertension Physical deconditioning Greater trochanteric bursitis of both hips Bilateral primary osteoarthritis of knee Sarcoidosis Gout Surgical History H/O colonoscopy H/O esophagogastroduodenoscopy Hx of tonsillectomy History of hysterectomy Family History Mother No problems noted. Father No problems noted. 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 How often do you have a drink containing alcohol?: Never 3. How often do you have six or more drinks on one occasion?: Never Total Score: 0 Score Reviewed/Action Taken: No TESSIE-7 AMB Questionnaire TESSIE-7 Date TESSIE - 7 assessed: 07/01/23 Source: Developed by Drs. Edson Mcarthur, Lolis Conrad, Aidan Dorsey and colleagues, with an educational rodriguez from [employer]. Physical exam (Primary Care) Vital Signs: Last Vital Signs Pulse 78 09/16/23 16:35 BP 164/86 H 09/16/23 16:35 Pulse Ox 95 09/16/23 16:35 Oxygen Delivery Method Room Air 09/16/23 16:35 BMI result Body Mass Index 41.8 Tobacco/Smoking Status: Tobacco use Status Tobacco use date assessed 09/16/23 09/16/23 16:36 Patient Tobacco Use Status Never used Tobacco 09/16/23 16:36 e-Cigarette/Vaping Use Never Used 09/16/23 16:36 Thrive Assessment: Date of Thrive Assessment Date Thrive assessed 07/01/23 09/16/23 16:36 Const General: alert; No acute distress Eyes Conjunctivae: conjunctivae normal Resp Auscultation: clear to auscultation bilaterally Cardio Rate: regular rate Rhythm: regular rhythm GI Inspection: Yes normal to inspection Extrem General: Yes normal to inspection and No edema Assessment and Plan Assessment & Plan (1) Lumbar back pain: Comment: July 2023Moderate multilevel lumbar spondylosis. 2. 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 3. Degenerative changes in the right sacroiliac joint greater than left. Code(s): M54.50 - Low back pain, unspecified Plan: Try to lose the weight and was referred for physical therapy also. Tramadol prescription for severe pain and advised to take with food. (2) Hip pain, left: Comment: July 2023There are moderate degenerative changes of the bilateral hips. No fracture or dislocation is seen. Code(s): M25.552 - Pain in left hip Plan: Try to lose the weight. Patient did see Orthopedics and had injections done for trochanteric bursitis. Patient is sent for physical therapy (3) Morbid obesity: Code(s): E66.01 - Morbid (severe) obesity due to excess calories Plan: Diet and exercise trial of wegovy prescription sent in. Orders: Orders PT Evaluation and Treatment Today M54.50 - Low back pain, unspecified Medications: New tramadol 50 mg PO BEDTIME 7 tabs 0RF M54.50 - Low back pain, unspecified semaglutide (weight loss) (Wegovy) administer weeks 1 through 4 of therapy 0.25 mg (0.5 mL) subcut QWEEK 2 mL 1RF E66.01 - Morbid (severe) obesity due to excess calories Coding Level of Care Code Est Pt Level 4 (39346) Diagnoses Lumbar back pain M54.50 Hip pain, left M25.552 Morbid obesity E66.01
[2023-09-16 16:35] VITALS: BP 164/86; PULSE 78; O2SAT 95; BMI 41.8
== END 2023-09-16 17:17 | disposition home or self-care (01) ==
PROVIDERS: PCP Internal Medicine; Visit Provider Internal Medicine
DX: M54.50 Low back pain, unspecified (principal); M25.552 Pain in left hip; E66.01 Morbid (severe) obesity due to excess calories; Z68.41 Body mass index [BMI] 40.0-44.9, adult
CPT/HCPCS: 99214

== ENCOUNTER 2023-10-24 14:06 | Outpatient (AMB) | payer MEDICARE, SELFPAY ==
[2023-10-24 14:14] VITALS: BP 132/82; PULSE 62; O2SAT 95; BMI 41.4
--- NOTE | 2023-10-24 14:14 | MHC.PC.OV ---
Vital Signs 10/24/23 14:14 Height 5 ft 3 in Weight 234 lb BMI 41.4 BP 132/82 Blood Pressure Location Lt brachial Position Sitting Pulse 62 Pulse Source Pulse Oximeter Pulse Oximetry (%) 95 Oxygen Delivery Method Room Air Intake Visit Reasons: obesity, hip pain, HTN Allergies penicillin V Allergy (Unknown, Verified 10/24/23 14:14) Unknown Sulfa (Sulfonamide Antibiotics) Allergy (Unknown, Verified 10/24/23 14:14) unknon Benadryl Allergy (Unknown, Uncoded 10/24/23 14:14) Unknown Medication List - Last Reconciled 10/24/23 by Eduardo Guaman MD albuterol sulfate 90 mcg/actuation (Ventolin HFA) 2 puffs inhalation Q4-6H PRN ascorbate calcium (vitamin C) 500 mg PO BID 90 days cyanocobalamin (vitamin B-12) 1,000 mcg PO DAILY 90 days diltiazem HCl CD 240 mg PO DAILY 90 days ferrous sulfate (FeroSul) 325 mg PO BID 90 days hydrochlorothiazide 25 mg PO DAILY 90 days methocarbamol 500 mg PO TID PRN metoprolol succinate ER 100 mg PO DAILY multivitamin (One-A-Day Essential tablet) 1 tab PO DAILY tirzepatide (Mounjaro) 2.5 mg (0.5 mL) subcut QWEEK 4 weeks tramadol 50 mg PO BID Tobacco use date assessed: 09/16/23 Fall risk assessment: No Falls in past year Last assessed Fall Risk: 10/24/23 Dental Screening Dental Screen Date: 10/24/23 Did you have a dental visit in the last 12 months?: No Did you have a dental problem in the last 6 months where you did not have access to dental care?: No Was dental information given to patient?: No HPI obesity, hip pain, HTN HPI Details 72-year-old morbidly obese female with a history of low back pain left hip pain coming in for follow-up. Last seen in September for 2023. Up-to-date with mammogram colonoscopy. Review of the notes has been follow-up with Hematology-Oncology for anemia iron deficiency and B12 deficiency anemia has resolved.. X-ray of the lumbar spine shows moderate multilevel lumbar spondylosis with arthritis mid to lower lumbar spine and degenerative changes in the right sacroiliac greater done left as for the hips moderate degenerative changes of bilateral hips. [facility] Medical History (Updated 10/14/23 @ 11:04 by Lidia Epps MD) Foul smelling urine Obesity Colon cancer screening COVID-19 virus infection Cataract Preop examination Anemia Hypertension Physical deconditioning Greater trochanteric bursitis of both hips Bilateral primary osteoarthritis of knee Sarcoidosis Gout Surgical History H/O colonoscopy H/O esophagogastroduodenoscopy Hx of tonsillectomy History of hysterectomy Family History Mother No problems noted. Father No problems noted. 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 1. Little interest or pleasure in doing things: not at all 2. Feeling down, depressed, or hopeless: not at all 3. Trouble falling or staying asleep, or sleeping too much: not at all 4. Feeling tired or having little energy: not at all 5. Poor appetite or overeating: not at all 6. Feeling bad about yourself - or that you are a failure or have let yourself or your family down: not at all 7. Trouble concentrating on things, such as reading the newspaper or watching television: not at all 8. Moving or speaking so slowly that other people could have noticed. Or the opposite - being so fidgety or restless that you have been moving around a lot more than usual: not at all 9. Thoughts that you would be better off or of hurting yourself in some way: not at all Total score: 0 Depression Screening Interpretation: Negative Depression Screening Done: Yes 02802 - PHQ-9 Billing: Yes Source: Developed by Drs. Edson Mcarthur, Lolis Aidan Carey and colleagues, with an educational rodriguez from [employer]. Thrive Questionnaire Date Thrive assessed: 07/01/23 AUDIT C Alcohol Use Questionnaire (AUDIT-C) 1. How often do you have a drink containing alcohol?: Never 3. How often do you have six or more drinks on one occasion?: Never Total Score: 0 Score Reviewed/Action Taken: No TESSIE-7 AMB Questionnaire TESSIE-7 Date TESSIE - 7 assessed: 07/01/23 Source: Developed by Drs. Edson Mcarthur, Aidan Powell and colleagues, with an educational rodriguez from [employer]. Physical exam (Primary Care) Vital Signs: Last Vital Signs Pulse 62 10/24/23 14:14 BP 132/82 10/24/23 14:14 Pulse Ox 95 10/24/23 14:14 Oxygen Delivery Method Room Air 10/24/23 14:14 BMI result Body Mass Index 41.4 Tobacco/Smoking Status: Tobacco use Status Tobacco use date assessed 09/16/23 10/24/23 14:16 Patient Tobacco Use Status Never used Tobacco 10/24/23 14:16 e-Cigarette/Vaping Use Never Used 10/24/23 14:16 PHQ-9: PHQ-9 Score PHQ-9: Total score 0 10/24/23 14:20 Depression Screening Interpretation: Negative Thrive Assessment: Date of Thrive Assessment Date Thrive assessed 07/01/23 10/24/23 14:16 Const General: alert; No acute distress Eyes Conjunctivae: conjunctivae normal Resp Auscultation: clear to auscultation bilaterally Cardio Rate: regular rate Rhythm: regular rhythm GI Inspection: Yes normal to inspection Extrem General: Yes normal to inspection and No edema Assessment and Plan Assessment & Plan (1) Lumbar back pain: Comment: July 2023Moderate multilevel lumbar spondylosis. 2. 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 3. Degenerative changes in the right sacroiliac joint greater than left. Code(s): M54.50 - Low back pain, unspecified Plan: Discussed about arthritis (2) Hip pain, left: Comment: July 2023There are moderate degenerative changes of the bilateral hips. No fracture or dislocation is seen. Code(s): M25.552 - Pain in left hip Plan: Discussed about arthritis (3) Morbid obesity: Code(s): E66.01 - Morbid (severe) obesity due to excess calories Plan: Diet and exercise (4) Anemia: Comment: Anemia and unknown etiology- Having blood work over the next week or so with PCP Will put in order to have a urine to r/o for hematuria Code(s): D64.9 - Anemia, unspecified Plan: Iron deficiency anemia has seen hematology and resolved (5) Hypertension: Code(s): I10 - Essential (primary) hypertension Qualifiers: Hypertension type: essential hypertension Qualified Code(s): I10 - Essential (primary) hypertension Plan: Continue with blood pressure medication. Decrease salt intake and exercise presently on diltiazem 240 mg once a day hydrochlorothiazide 25 mg once a day metoprolol 100 mg once a day Medications: New liraglutide (weight loss) (Saxenda) inject subcutaneously once daily: week 1 = 0.6 mg; week 2 = 1.2 mg; week 3 = 1.8 mg; week 4 = 2.4 mg; then 3 mg daily subcut 15 mL 3RF E66.01 - Morbid (severe) obesity due to excess calories Changed From tramadol 50 mg PO BEDTIME 7 tabs 0RF M54.50 - Low back pain, unspecified To tramadol 50 mg PO BID 60 tabs 1RF M54.50 - Low back pain, unspecified Discontinued tirzepatide (Mounjaro) Discontinued Reason: Doctor's Order 2.5 mg (0.5 mL) subcut QWEEK 4 weeks 2 mL 0RF E66.01 - Morbid (severe) obesity due to excess calories Coding Level of Care Code Est Pt Level 4 (62164) Diagnoses Lumbar back pain M54.50 Hip pain, left M25.552 Morbid obesity E66.01 Anemia D64.9 Essential hypertension I10 Hypertension type: essential hypertension
== END 2023-10-24 15:13 | disposition home or self-care (01) ==
PROVIDERS: PCP Internal Medicine; Visit Provider Internal Medicine
DX: M54.50 Low back pain, unspecified (principal); E66.01 Morbid (severe) obesity due to excess calories; Z68.41 Body mass index [BMI] 40.0-44.9, adult; M25.552 Pain in left hip; D64.9 Anemia, unspecified; I10 Essential (primary) hypertension
CPT/HCPCS: 99214

== ENCOUNTER 2023-12-10 09:34 | Outpatient (AMB) | payer MEDICARE, SELFPAY ==
--- NOTE | 2023-12-10 09:47 | MHC.AMNUTRGE ---
VS Expanded 12/10/23 09:48 12/10/23 10:13 Height 5 ft 3 in 5 ft 3 in Weight 234 lb 2.095 oz 234 lb BMI 41.5 41.4 Intake Visit Reasons: Morbid obesity/CONFIRMED Allergies penicillin V Allergy (Unknown, Verified 10/24/23 14:14) Unknown Sulfa (Sulfonamide Antibiotics) Allergy (Unknown, Verified 10/24/23 14:14) unknon Benadryl Allergy (Unknown, Uncoded 10/24/23 14:14) Unknown Nutrition Presentation Details: Pt presents for MNT f/u for morbid obesity. Patient was referred by PCP, Dr. Guamna Patient admits to eating out most days of the week and beverages of choices are sugary beverages BS Monitoring Most Recent Diabetes Results: Creatinine 1.19 mg/dL (0.5-1.4) 10/14/23 Blood Urea Nitrogen 23 mg/dL (9-16) H 10/14/23 Sodium 143 mmol/L (135-145) 10/14/23 Potassium 3.9 mmol/L (3.3-5.1) 10/14/23 Chloride 107 mmol/L (96-108) 10/14/23 Carbon Dioxide 27 mmol/L (22-29) 10/14/23 Calcium 9.1 mg/dL (8.4-10.2) 10/14/23 AST 19 U/L (5-31) 10/14/23 ALT 11 U/L (0-31) 10/14/23 Total Protein 7.9 g/dL (6.5-8.0) 10/14/23 Albumin 3.8 g/dL (3.5-5.0) 10/14/23 VVD-Awxefkr-Ai.Jeor Equation Height: 5 ft 3 in Weight: 234 lb Resting Metabolic Rate: 1530.47 Calculated Activity Level: Sedentary Calories Needed to Maintain Weight: 1836.56 Diagnosis Nutrition problem #1: excessive energy intake As related to (etiology) #1: diagnosis As evidenced by (sign/symptom) #1: high BMI (41 on ) Monitoring/Goals Nutrition problem monitoring: weight Nutrition goal/outcome: wt loss 5lbs in 2 months [facility] Medical History (Updated 10/14/23 @ 11:04 by Lidia Epps MD) Foul smelling urine Obesity Colon cancer screening COVID-19 virus infection Cataract Preop examination Anemia Hypertension Physical deconditioning Greater trochanteric bursitis of both hips Bilateral primary osteoarthritis of knee Sarcoidosis Gout Surgical History H/O colonoscopy H/O esophagogastroduodenoscopy Hx of tonsillectomy History of hysterectomy Family History Mother No problems noted. Father No problems noted. 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 Cognitive needs: No Hearing needs: No Vision needs: Yes Assessment & Plan Assessment & Plan (1) Morbid (severe) obesity due to excess calories: Code(s): E66.01 - Morbid (severe) obesity due to excess calories Category: Medical Plan: Wt: 106 Kg ( 11/2023 ) Est kcal needs as per MSJ: 1800 (40% carb, 30% protein/fat) Est fluid needs as per 25-30 ml/d: 3200 Est prot per day as per 1 g/kg bw: 106 Recommend fiber intake : 8-10 g per day and gradually increase to 25-28 g per day for women and 35-38 g for men or as tolerated Recommend sodium intake per day : less than 2000 mg Educated patient on: ( R = reviewed V = verbalizes understanding N/R = needs review N/A = not applicable Food sources of carbohydrate, adequate serving sizes and its role in various health conditions: R Differences between complex carbohydrates a simple carbohydrates, role of fiber in diet: R V N/R Lean protein sources of foods: R V NR Differences between types of fats and role in diet (mono on saturated fat fatty acids, saturated fatty acids, trans fats): R basic low fat Food sources of sodium in salt and healthy modifications for heart health in kidney health: R V R/V Vitamins and minerals: R V N/R Healthy plate method concept: R V N/R Physical activity: Benefits a precaution: R V N/R Hypoglycemia protocol (rule of 15): R V N/R Dietary prevention of Hyperglycemia: R V R/V Pt has hx of lactose intolerance Pt's Goal weight 200 lbs. Patient Instructions: Choose herb/fruit infused water - see list of choices to work on reducing on sugars from beverages Coding Level of Care Code Nutr Indiv Subseq (07402) Diagnoses Morbid (severe) obesity due to excess calories E66.01 Time Spent (min) 20
[2023-12-10 09:48] VITALS: BMI 41.5
[2023-12-17 10:21] VITALS: BMI 41.4
== END 2023-12-10 10:04 | disposition home or self-care (01) ==
PROVIDERS: PCP Internal Medicine; Visit Provider Dietitian, Registered
DX: E66.01 Morbid (severe) obesity due to excess calories (principal)

== ENCOUNTER → 2023-12-10 09:34 | Outpatient (BNVA) | payer MEDICARE, SELFPAY | PROVIDERS: PCP Internal Medicine; Visit Provider Dietitian, Registered | DX: E66.01 Morbid (severe) obesity due to excess calories (principal); Z71.3 Dietary counseling and surveillance; Z68.41 Body mass index [BMI] 40.0-44.9, adult | CPT/HCPCS: 97803 ==

== ENCOUNTER 2023-12-25 09:00 | Outpatient (RCR) | payer MEDICARE, MEDICAID, SELFPAY ==
--- NOTE | 2023-11-13 15:19 | MHC.PT.EP ---
[facility] [place] Office [place] Office [place] Office [address] Torsten Keane [address] [phone] F: [phone] F: [phone] F: [phone] F: [phone] Physical Therapy Plan of Care Date of Evaluation: 11/13/23 Date of Surgery: Diagnosis: LOW BACK PAIN Assessment: 72 YO FEMALE REF TO PT FOR APPROX 5 MONTH H/O LBP W INTERM Rt THIGH SXS- SHE DENIES TRAUMA, BUT NOTES SHE HAS A LOT OF STRESS DUE TO THE OF 3 RELATIVES IN A SHORT SPAN. OBJECTIVE FINDINGS: DECR POSTURAL AWARENESS, DECR TRUNK AND LEs AROM/FLEXIBILITY, (+) LUMBOSACRAL ASYMMETRY CREATING A LLI EFFECT W DECR CORE STAB, (+) Rt THIGH INTERM RADICULOPATHY, MILD PROX LEs STRENGTH DEFICIT, AND FLUCTUATING PAIN IN SUSI THORACOLUMBOSACRAL SOFT TISSUES. THE Pt IS A GOOD CANDIDATE FOR SKILLED PT AT THIS TIME - ADDRESSING THE ABOVE FINDINGS, PAIN MGMT, AND DEV A HEP FOR SELF-SX MGMT. Frequency and Duration: The patient will be seen 2 x WK x 4 WKS Short Term Goals: *DECR LUMBAR PAIN TO 2-3/10 AT MAX *Pt INDEP SELF CORRECT POSTURE IN VARIED ADLs *INITIATE HEP *IMPROVE FUNCTIONAL SQUAT MECHANICS [employer] Goals: *IMPROVE LUMBOPELVUC SYMMETRY TO REDUCE LLI EFFECT, WFL TRUNK AND PROX LEs FLEXIB *Pt INDEP HEP AND SELF-SX MGMT TECHN *LEs STRENGTH IMPROVED BY 1 GRADE *Pt RESUME REG ADLs EVIDENT W IMPROVED OSWESTRY (AT EVAL ) *Pt DEMON APPROP [facility] W 3:3 SIMUL ADLs Treatment Plan: Modalities to reduce pain, spasms and effusion. Manual therapy to restore motion and function. Therapeutic exercise to improve strength and flexibility. Neuromuscular re-education for posture and balance. Therapeutic activities to return to functional activities of daily living. Electronically signed by: CLARA CHAKRABORTY,PT Please sign and return to therapist. Thank you for your referral.
--- NOTE | 2023-12-25 10:12 | MHC.PT.DC ---
[facility] [place] Office [place] Office [place] Office [address] Torsten Keane [address] [phone] F: [phone] F: [phone] F: [phone] F: [phone] Physical Therapy Discharge Report Diagnosis: LOW BACK PAIN Date of Surgery: Date of Evaluation: 11/13/23 Date of Discharge: 12/25/23 Treatments to Date: 11 Cancellations to Date: 1 No Shows to Date: 0 Discharge Status: Achieved Goals Improved Function Independent with HEP Discharge Summary: ADI GOMEZ HAS PROGRESSED NICELY IN PT, ADDRESSING POSTURE/ BODY MECH/ FLEXIB/ LUMBOPELVIC STABILITY. 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 SHE IS NOW ABLE TO PERFORM HIGHER LEVEL ADLs , INVOLVING BENDING/ SQUATTING/ MOVEMENT W/O EXACERBATING HER LBP. SHE HAS A GOOD GRASP OF THE IMPORTANCE OF CONT W HER HEP UPON D/C FROM PT , TO MAINTAIN FLERXIB IN HER HIP FLEXORS/ HIP JTs AND LEs STRENGTH. HER OSWESTRY AT D/C IS 16/50 AND AT EVAL 24/50. SHE HAS A THOROUGH, PROGRESSIVE HEP AND HAS MET HER PT GOALS AT THIS TIME AND IS READY FOR D/C. Electronically signed by: CLARA CHAKRABORTY,PT Please sign and return to therapist. Thank you for your referral.
== END 2023-12-25 10:12 | disposition home or self-care (01) ==
LOC: HO.PT 09:00
PROVIDERS: PCP Internal Medicine; Visit Provider Internal Medicine
DX: M54.50 Low back pain, unspecified (principal)
CPT/HCPCS: 97110; 97162; 97535

== ENCOUNTER 2024-01-21 09:33 | Outpatient (AMB) | payer MEDICARE, SELFPAY ==
[2024-01-21 10:01] VITALS: BMI 40.0
--- NOTE | 2024-01-21 10:01 | A.OFFVIS_ITS ---
VS Expanded 01/21/24 10:01 Height 5 ft 3 in Weight 225 lb 12.054 oz BMI 40.0 Intake Visit Reasons: obesity/LVM Allergies penicillin V Allergy (Unknown, Verified 10/24/23 14:14) Unknown Sulfa (Sulfonamide Antibiotics) Allergy (Unknown, Verified 10/24/23 14:14) unknon Benadryl Allergy (Unknown, Uncoded 10/24/23 14:14) Unknown Nutrition Presentation Details: Pt presents for MNT for obesity Pt reports working on diet modifications feeling motivated Having water/infused water in place of soda working on reducing fried foods and including fiber rich physical activity: chair exercise twice/week BS Monitoring Most Recent Diabetes Results: Creatinine 1.19 mg/dL (0.5-1.4) 10/14/23 Blood Urea Nitrogen 23 mg/dL (9-16) H 10/14/23 Sodium 143 mmol/L (135-145) 10/14/23 Potassium 3.9 mmol/L (3.3-5.1) 10/14/23 Chloride 107 mmol/L (96-108) 10/14/23 Carbon Dioxide 27 mmol/L (22-29) 10/14/23 Calcium 9.1 mg/dL (8.4-10.2) 10/14/23 AST 19 U/L (5-31) 10/14/23 ALT 11 U/L (0-31) 10/14/23 Total Protein 7.9 g/dL (6.5-8.0) 10/14/23 Albumin 3.8 g/dL (3.5-5.0) 10/14/23 PFSH Medical History (Updated 10/14/23 @ 11:04 by Lidia Epps MD) Foul smelling urine Obesity Colon cancer screening COVID-19 virus infection Cataract Preop examination Anemia Hypertension Physical deconditioning Greater trochanteric bursitis of both hips Bilateral primary osteoarthritis of knee Sarcoidosis Gout Surgical History H/O colonoscopy H/O esophagogastroduodenoscopy Hx of tonsillectomy History of hysterectomy Family History Mother No problems noted. Father No problems noted. 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 Cognitive needs: No Hearing needs: No Vision needs: Yes Assessment & Plan Assessment & Plan (1) Morbid (severe) obesity due to excess calories: Code(s): E66.01 - Morbid (severe) obesity due to excess calories Category: Medical Plan: Wt: 106 Kg ( 11/2023 ), 103 kg (02/04) Est kcal needs as per MSJ: 1800 (40% carb, 30% protein/fat) Est fluid needs as per 25-30 ml/d: 3200 Est prot per day as per 1 g/kg bw: 106 Recommend fiber intake : 8-10 g per day and gradually increase to 25-28 g per day for women and 35-38 g for men or as tolerated Recommend sodium intake per day : less than 2000 mg Educated patient on: ( R = reviewed V = verbalizes understanding N/R = needs review N/A = not applicable * Food sources of carbohydrate, adequate serving sizes and its role in various health conditions: R * Differences between complex carbohydrates a simple carbohydrates, role of fiber in diet: R V N/R * Lean protein sources of foods: R V NR * Differences between types of fats and role in diet (mono on saturated fat fatty acids, saturated fatty acids, trans fats): R basic low fat * Food sources of sodium in salt and healthy modifications for heart health in kidney health: R V R/V * Vitamins and minerals: R V N/R * Healthy plate method concept: R * Physical activity: Benefits a precaution: R V N/R * Pt has hx of lactose intolerance Pt's Goal weight 200 lbs. Patient Instructions: Continue working on balancing meals walk twice a week at least 30 min Coding Level of Care Code Nutr Indiv Subseq (58162) Diagnoses Morbid (severe) obesity due to excess calories E66.01 Time Spent (min) 15
== END 2024-01-21 10:20 | disposition home or self-care (01) ==
PROVIDERS: PCP Internal Medicine; Visit Provider Dietitian, Registered
DX: E66.01 Morbid (severe) obesity due to excess calories (principal)

== ENCOUNTER → 2024-01-21 09:33 | Outpatient (BNVA) | payer MEDICARE, SELFPAY | PROVIDERS: PCP Internal Medicine; Visit Provider Dietitian, Registered | DX: E66.01 Morbid (severe) obesity due to excess calories (principal); Z71.3 Dietary counseling and surveillance; Z68.41 Body mass index [BMI] 40.0-44.9, adult | CPT/HCPCS: 97803 ==

== ENCOUNTER 2024-03-03 09:28 | Outpatient (AMB) | payer MEDICARE, SELFPAY ==
[2024-03-03 09:34] VITALS: BMI 38.9
--- NOTE | 2024-03-03 09:34 | MHC.AMNUTRGE ---
VS Expanded 03/03/24 09:34 03/03/24 09:45 Height 5 ft 3 in 5 ft Weight 219 lb 5.759 oz BMI 38.9 Intake Visit Reasons: obesity/LVM Allergies penicillin V Allergy (Unknown, Verified 10/24/23 14:14) Unknown Sulfa (Sulfonamide Antibiotics) Allergy (Unknown, Verified 10/24/23 14:14) unknon Benadryl Allergy (Unknown, Uncoded 10/24/23 14:14) Unknown Nutrition Presentation Details: Pt presents for MNT f/u for obesity Pt reports working on increasing on vegetables walking 2 days a week , 15 minutes BS Monitoring Most Recent Diabetes Results: Creatinine 1.19 mg/dL (0.5-1.4) 10/14/23 Blood Urea Nitrogen 23 mg/dL (9-16) H 10/14/23 Sodium 143 mmol/L (135-145) 10/14/23 Potassium 3.9 mmol/L (3.3-5.1) 10/14/23 Chloride 107 mmol/L (96-108) 10/14/23 Carbon Dioxide 27 mmol/L (22-29) 10/14/23 Calcium 9.1 mg/dL (8.4-10.2) 10/14/23 AST 19 U/L (5-31) 10/14/23 ALT 11 U/L (0-31) 10/14/23 Total Protein 7.9 g/dL (6.5-8.0) 10/14/23 Albumin 3.8 g/dL (3.5-5.0) 10/14/23 MVZ-Vdacvxh-Hc.Jeor Equation Height: 5 ft [facility] Medical History (Updated 10/14/23 @ 11:04 by Lidia Epps MD) Foul smelling urine Obesity Colon cancer screening COVID-19 virus infection Cataract Preop examination Anemia Hypertension Physical deconditioning Greater trochanteric bursitis of both hips Bilateral primary osteoarthritis of knee Sarcoidosis Gout Surgical History H/O colonoscopy H/O esophagogastroduodenoscopy Hx of tonsillectomy History of hysterectomy Family History Mother No problems noted. Father No problems noted. 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 Cognitive needs: No Hearing needs: No Vision needs: Yes Assessment & Plan Assessment & Plan (1) Morbid (severe) obesity due to excess calories: Code(s): E66.01 - Morbid (severe) obesity due to excess calories Category: Medical Plan: Wt: 106 Kg ( 11/2023 ), 103 kg (02/04) Est kcal needs as per MSJ: 1800 (40% carb, 30% protein/fat) Est fluid needs as per 25-30 ml/d: 3200 Est prot per day as per 1 g/kg bw: 106 Recommend fiber intake : 8-10 g per day and gradually increase to 25-28 g per day for women and 35-38 g for men or as tolerated Recommend sodium intake per day : less than 2000 mg Educated patient on: ( R = reviewed V = verbalizes understanding N/R = needs review N/A = not applicable Food sources of carbohydrate, adequate serving sizes and its role in various health conditions: R Differences between complex carbohydrates a simple carbohydrates, role of fiber in diet: R V N/R Lean protein sources of foods: R V NR Differences between types of fats and role in diet (mono on saturated fat fatty acids, saturated fatty acids, trans fats): R basic low fat Food sources of sodium in salt and healthy modifications for heart health in kidney health: R V R/V Vitamins and minerals: R V N/R Healthy plate method concept: R Physical activity: Benefits a precaution: R V N/R Pt has hx of lactose intolerance Pt's Goal weight 200 lbs. Patient Instructions: Continue working on reducing on fried foods ,use air fryer, remove skins, visible fats Engage in walking 15 minutes 4 times a week Coding Level of Care Code Nutr Indiv Subseq (35334) Diagnoses Morbid (severe) obesity due to excess calories E66.01 Time Spent (min) 25
== END 2024-03-03 09:53 | disposition home or self-care (01) ==
PROVIDERS: PCP Internal Medicine; Visit Provider Dietitian, Registered
DX: E66.01 Morbid (severe) obesity due to excess calories (principal)

== ENCOUNTER → 2024-03-03 09:28 | Outpatient (BNVA) | payer MEDICARE, SELFPAY | PROVIDERS: PCP Internal Medicine; Visit Provider Dietitian, Registered | DX: E66.01 Morbid (severe) obesity due to excess calories (principal); Z68.38 Body mass index [BMI] 38.0-38.9, adult | CPT/HCPCS: 97803 ==

== ENCOUNTER 2024-03-04 13:58 | Outpatient (AMB) | payer MEDICARE, SELFPAY ==
[2024-03-04 14:01] VITALS: BP 122/78; BMI 43.0
--- NOTE | 2024-03-04 14:01 | A.OFFPC_ITS ---
Vital Signs 03/04/24 14:01 Height 5 ft Weight 220 lb BMI 43.0 BP 122/78 Blood Pressure Location Lt brachial Position Sitting Pulse Source Pulse Oximeter Oxygen Delivery Method Room Air Intake Visit Reasons: LBP morbid obesity Allergies penicillin V Allergy (Unknown, Verified 03/04/24 14:06) Unknown Sulfa (Sulfonamide Antibiotics) Allergy (Unknown, Verified 03/04/24 14:06) unknon Benadryl Allergy (Unknown, Uncoded 03/04/24 14:06) Unknown Medication List - Last Reconciled 03/04/24 by Sahara Koo PA-C albuterol sulfate 90 mcg/actuation (Ventolin HFA) 2 puffs inhalation Q4-6H PRN ascorbate calcium (vitamin C) 500 mg PO BID 90 days cyanocobalamin (vitamin B-12) 1,000 mcg PO DAILY 90 days diltiazem HCl CD 240 mg PO DAILY 90 days ferrous sulfate (FeroSul) 325 mg PO BID 90 days hydrochlorothiazide 25 mg PO DAILY 90 days methocarbamol 500 mg PO TID PRN metoprolol succinate ER 100 mg PO DAILY multivitamin (One-A-Day Essential tablet) 1 tab PO DAILY semaglutide (Ozempic) 0.25 mg (0.368 mL) subcut QWEEK tramadol 50 mg PO BID Tobacco use date assessed: 09/16/23 Fall risk assessment: No Falls in past year Last assessed Fall Risk: 03/04/24 Dental Screening Dental Screen Date: 10/24/23 HPI LBP morbid obesity HPI Details 73-year-old morbidly obese female with a history of low back pain left hip pain coming in for follow-up. In review of the notes patient was seen by [facility] endocrinology 03/03/2024 discussed nutrition and advised 15 minute walks 4 times per week. Patient has a noted 14 lb weight loss since her last appointment with us in October. She has been working with diet and nutrition through endocrinology has not use the Ozempic shot prescribed by Dr. Guaman at the last visit. [facility] Medical History Foul smelling urine Obesity Colon cancer screening COVID-19 virus infection Cataract Preop examination Anemia Hypertension Physical deconditioning Greater trochanteric bursitis of both hips Bilateral primary osteoarthritis of knee Sarcoidosis Gout Surgical History H/O colonoscopy H/O esophagogastroduodenoscopy Hx of tonsillectomy History of hysterectomy Family History Mother No problems noted. Father No problems noted. 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 How often do you have a drink containing alcohol?: Never 3. How often do you have six or more drinks on one occasion?: Never Total Score: 0 Score Reviewed/Action Taken: No TESSIE-7 AMB Questionnaire TESSIE-7 Date TESSIE - 7 assessed: 07/01/23 Source: Developed by Drs. Edson Mcarthur, Lolis Conrad, Aidan Dorsey and colleagues, with an educational rodriguez from [employer]. Review of Systems Const Denies body aches, Denies chills and Denies fever(s) Eyes Reports no additional complaints ENT Reports no additional complaints Card Denies chest pain and Denies dyspnea Resp Denies dyspnea GI Denies abdominal pain, Denies constipation, Reports diarrhea, Denies nausea and Denies vomiting Reports no additional complaints Musc Details: Bilateral hip and back pain Physical exam (Primary Care) Vital Signs: Oxygen Delivery Method Room Air 03/04/24 14:01 BMI Assessment/Plan discussion: High BMI High, discussed plan: lifestyle, dietary and physical activity Tobacco/Smoking Status: Tobacco use Status Tobacco use date assessed 09/16/23 03/04/24 14:04 Patient Tobacco Use Status Never used Tobacco 03/04/24 14:04 e-Cigarette/Vaping Use Never Used 03/04/24 14:04 Thrive Assessment: Date of Thrive Assessment Date Thrive assessed 07/01/23 03/04/24 14:04 Const General: cooperative, healthy appearing, comfortable and no acute distress Orientation/consciousness: patient oriented x3 HENMT Head: Yes normocephalic Ears: hearing grossly normal bilaterally General nose exam: Normal external nose present Eyes General: appearance normal, both eyes and all related structures Conjunctivae: conjunctivae normal Neck Neck: Yes full ROM and Yes no lymphadenopathy Resp Effort & Inspection: normal respiratory effort Auscultation: clear to auscultation bilaterally, no crackles, no rales, no rhonchi and no wheezes Cardio Rate: regular rate Rhythm: regular rhythm Skin General skin exam: no rashes or lesions noted Neuro General: patient oriented x3 Gait exam (Neuro): Normal gait present Extrem General: Yes normal to inspection, Yes full ROM and No edema Psych Affect: normal affect Attitude: cooperative Insight: Good insight present (Psych) Judgement: Good judgement present (Psych) Coding Level of Care Code Est Pt Level 3 (40825) Diagnoses Morbid (severe) obesity due to excess calories E66.01 Anemia D64.9 Essential hypertension I10 Hypertension type: essential hypertension Assessment & Plan Assessment & Plan (1) Morbid (severe) obesity due to excess calories: Code(s): E66.01 - Morbid (severe) obesity due to excess calories Category: Medical Plan: Healthy diet and regular exercise is encouraged. 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 Has not been using Ozempic. Discussed with patient if she would like to start this medication to reach out to the office and otherwise we will follow up in 3 months. (2) Anemia: Comment: Anemia and unknown etiology- Having blood work over the next week or so with PCP Will put in order to have a urine to r/o for hematuria Code(s): D64.9 - Anemia, unspecified Category: Medical Plan: Continuing to follow with Hematology. (3) Hypertension: Code(s): I10 - Essential (primary) hypertension Category: Medical Qualifiers: Hypertension type: essential hypertension Qualified Code(s): I10 - Essential (primary) hypertension Plan: Continue on current blood pressure medication. Avoid salt intake and encourage healthy diet and regular exercise. Plan This note was constructed using voice recognition software. While every effort has been made to ensure accuracy and foreign correspondent, still areas may have been included sometimes these areas may affect the content or meeting of the given symptoms. Total time spent caring for the patient today was 30 minutes. This includes time spent before the visit reviewing the chart, time spent during the visit, and time spent after the visit and documentation. Orders: Orders Comprehensive Met. Panel Today E66.01 - Morbid (severe) obesity due to excess calories
== END 2024-03-04 14:28 | disposition home or self-care (01) ==
PROVIDERS: PCP Internal Medicine
DX: I10 Essential (primary) hypertension (principal); E66.01 Morbid (severe) obesity due to excess calories; Z68.41 Body mass index [BMI] 40.0-44.9, adult; D64.9 Anemia, unspecified

== ENCOUNTER → 2024-03-04 13:58 | Outpatient (BNVA) | payer MEDICARE, SELFPAY | PROVIDERS: PCP Internal Medicine | DX: E66.01 Morbid (severe) obesity due to excess calories (principal); Z68.41 Body mass index [BMI] 40.0-44.9, adult; I10 Essential (primary) hypertension; D64.9 Anemia, unspecified; Z71.3 Dietary counseling and surveillance | CPT/HCPCS: 99212 ==

== ENCOUNTER 2024-05-05 10:06 | Outpatient (AMB) | payer MEDICARE, SELFPAY ==
[2024-05-05 10:13] VITALS: BMI 42.2
--- NOTE | 2024-05-05 10:13 | A.OFFVIS_ITS ---
VS Expanded 05/05/24 10:13 Height 5 ft Weight 216 lb 4.375 oz BMI 42.2 Intake Visit Reasons: obesity Allergies penicillin V Allergy (Unknown, Verified 03/04/24 14:06) Unknown Sulfa (Sulfonamide Antibiotics) Allergy (Unknown, Verified 03/04/24 14:06) unknon Benadryl Allergy (Unknown, Uncoded 03/04/24 14:06) Unknown Nutrition Presentation Details: Pt presents for MNT f/u for obesity Pt reports having 3 meals/day Pt reports choosing iron rich foods (broccoli , cookie greens) having variety of vegetables daily at least 2 servings Breakfast 2eggs/breakfast sausage , tea L Salad with chicken or sierra, ham and honey mustard, with apple water D: 4 oz chicken with vegetables with rice or with corn Eats out 1-2 twice a week , choosing lower fat options and reducing on servings Reports doing chair exercise at home , will be joining the gym with sister Pt is motivated, reports feeling well, no questions or concerns expressed BS Monitoring Most Recent Diabetes Results: No Data to Display WKU-Mucesfr-Nl.Jeor Equation Height: 5 ft Weight: 216 lb Resting Metabolic Rate: 1401.28 Calculated Activity Level: Mild Activity Calories Needed to Maintain Weight: 1926.76 PFSH Medical History Foul smelling urine Obesity Colon cancer screening COVID-19 virus infection Cataract Preop examination Anemia Hypertension Physical deconditioning Greater trochanteric bursitis of both hips Bilateral primary osteoarthritis of knee Sarcoidosis Gout Surgical History H/O colonoscopy H/O esophagogastroduodenoscopy Hx of tonsillectomy History of hysterectomy Family History Mother No problems noted. Father No problems noted. 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 Cognitive needs: No Hearing needs: No Vision needs: Yes Assessment & Plan Assessment & Plan (1) Morbid (severe) obesity due to excess calories: Code(s): E66.01 - Morbid (severe) obesity due to excess calories Category: Medical Plan: Wt: 106 Kg ( 11/2023 ), 103 kg (02/04), 98 kg (05/08) Est kcal needs as per MSJ: 1800 (40% carb, 30% protein/fat) Est fluid needs as per 25-30 ml/d: 3000 Est prot per day as per 1 g/kg bw: 100 Recommend fiber intake : 8-10 g per day and gradually increase to 25-28 g per day for women and 35-38 g for men or as tolerated Recommend sodium intake per day : less than 2000 mg Educated patient on: ( R = reviewed V = verbalizes understanding N/R = needs review N/A = not applicable * Food sources of carbohydrate, adequate serving sizes and its role in various health conditions: R * Differences between complex carbohydrates a simple carbohydrates, role of fiber in diet: R V N/R * Lean protein sources of foods: R V NR * Differences between types of fats and role in diet (mono on saturated fat fatty acids, saturated fatty acids, trans fats): R basic low fat * Food sources of sodium in salt and healthy modifications for heart health in kidney health: R * Vitamins and minerals: R V N/R * Healthy plate method concept: R * Physical activity: Benefits a precaution: R * Pt has hx of lactose intolerance Pt's Goal weight 200 lbs. Patient Instructions: Continue including iron rich foods : spinach with beef, lentil soup with carrots Include a fruit with protein at breakfat Keep physically active, 15 minute walk daily Coding Level of Care Code Nutr Indiv Subseq (71526) Diagnoses Morbid (severe) obesity due to excess calories E66.01 Time Spent (min) 20
--- OUTSIDE RECORDS SUMMARY | 2024-05-05 11:05 | XMS_ITS | Clinical Summary ---
Author Organization [facility] Address [id number] [place] [phone] Care Team Providers Care Early Learning Teacher Name Role Phone Unavailable Primary Care Provider Unavailabl e Medical History Medical History Date Comments Essential hypertension, benign 12/20/2005 D X:Essential hypertension, benign Depressive disorder, not els ewhere classified 12/20/2005 DX:Depressive disorder, not elsewhere classified Allergic rhinitis, cause unspecified 04/13/2006 DX:Allergic rhinitis, cause unspecified Unspecified asthma(493.90) 04/13/2006 DX:Un specified asthma(493.90) SVT (supraventricular tachyc ardia) ([facility]/HCC) 07/02/2007 DX:SVT (supraventricular tac hycardia) ([facility]); COMMENT: See note 06/19, and cardiology consultation note 06/19 Social History Tobacco Use Types Packs/Day Years Used Date Smoking Tobacco: Never Alcohol Use Standard Drinks/Week Comments Never 0 (1 standard drink = 0.6 oz pur e alcohol) Sex and Gender Information Value Date Recorded Sex Assigned at Not on file Gender Identity Not on file Sexual Orientation Not on file Obstetrics History Last Filed Vital Signs Vital Sign Reading Time Taken Comments Blood Pressure - - Pulse - - Temperature - - Respiratory Rate - - Oxygen Saturation - - Inhaled Oxygen Concentration - - Weight 102 kg (224 lb) 01/21/2022 10:14 AM EDT Height 160 cm (5' 3 ) 01/21/2022 10:14 AM EDT Body Mass Index 39.68 01/21/2022 10:14 AM EDT Plan of Treatment Health Maintenance Due Date Last Done Comments DTaP,Tdap,and Td Vaccines (1 - Tdap) 12/13/1967 Zoster Vaccines (1 of 2) 1998 Pneumococcal Vaccine: 65+ Years (2 of 2 - PCV) 03/23/2008 03/23/2007 Cholesterol Screening (Lipid Panel) 03/24/2022 Colorectal Cancer Screening: Colonoscopy 03/24/2022 Depression Screening 03/24/2022 Falls Risk Assessment 03/24/2022 Hepatitis C Screening 03/24/2022 Osteoporosis Screening (Bone Density Screening) 03/24/2022 Social Influencers of Health Screening 03/24/2022 Hypertension/CHF/CAD Annual BMP Blood Test 05/30/2023 RSV Immunization Patients 60 + Years Old (1 - 1-dose 75+ series) 12/13/2023 COVID-19 Vaccine (2023-2 5 season) 2023 Influenza Vaccine (#1) 2023 7, 01/25/2005 HIB Vaccines Aged Out No longer eligi ble based on patient's age to complete this topic HPV Vaccines Aged Out No longer eligi ble based on patient's age to complete this topic Hepatitis A Vaccines Aged Out No long er eligible based on patient's age to complete this topic Hepatitis B Vaccines Aged Out No long er eligible based on patient's age to complete this topic IPV Vaccines Aged Out No longer eligi ble based on patient's age to complete this topic MMR Vaccines Aged Out No longer eligi ble based on patient's age to complete this topic Meningococcal ACWY Vaccine Aged Out N o longer eligible based on patient's age to complete this topic RSV Immunization Patients Under 20 months Aged Out No longer eligible b ased on patient's age to complete this topic Varicella Vaccines Aged Out No longer eligible based on patient's age to complete this topic
[2024-05-05 14:42] VITALS: BMI 42.2
== END 2024-05-05 10:34 | disposition home or self-care (01) ==
PROVIDERS: PCP Internal Medicine; Visit Provider Dietitian, Registered
DX: E66.01 Morbid (severe) obesity due to excess calories (principal)

== ENCOUNTER → 2024-05-05 10:06 | Outpatient (BNVA) | payer MEDICARE, SELFPAY | PROVIDERS: PCP Internal Medicine; Visit Provider Dietitian, Registered | DX: E66.01 Morbid (severe) obesity due to excess calories (principal); Z68.41 Body mass index [BMI] 40.0-44.9, adult | CPT/HCPCS: 97803 ==

== ENCOUNTER 2024-05-27 08:58 | Outpatient (AMB) | payer MEDICARE, SELFPAY ==
[2024-05-27 09:10] VITALS: BP 136/82; PULSE 66; O2SAT 96; BMI 38.2
--- NOTE | 2024-05-27 09:10 | MHC.PC.OV ---
Vital Signs 05/27/24 09:10 Height 5 ft 3 in Weight 215 lb 8 oz BMI 38.2 BP 136/82 Blood Pressure Location Lt brachial Position Sitting Pulse 66 Pulse Source Pulse Oximeter Pulse Oximetry (%) 96 Oxygen Delivery Method Room Air Intake Visit Reasons: cataract Surgery 06/02 Allergies penicillin V Allergy (Unknown, Verified 05/27/24 09:32) Unknown Sulfa (Sulfonamide Antibiotics) Allergy (Unknown, Verified 05/27/24 09:32) unknon Benadryl Allergy (Unknown, Uncoded 05/27/24 09:32) Unknown Medication List - Last Reconciled 05/27/24 by Sahara Koo PA-C albuterol sulfate 90 mcg/actuation (Ventolin HFA) 2 puffs inhalation Q4-6H PRN ascorbate calcium (vitamin C) 500 mg PO BID 90 days cyanocobalamin (vitamin B-12) 1,000 mcg PO DAILY 90 days diltiazem HCl CD 240 mg PO DAILY 90 days hydrochlorothiazide 25 mg PO DAILY 90 days metoprolol succinate ER 100 mg PO DAILY multivitamin (One-A-Day Essential tablet) 1 tab PO DAILY tramadol 50 mg PO BID Tobacco use date assessed: 05/27/24 Fall risk assessment: No Falls in past year Last assessed Fall Risk: 05/27/24 Dental Screening Dental Screen Date: 05/27/24 Did you have a dental visit in the last 12 months?: Yes Did you have a dental problem in the last 6 months where you did not have access to dental care?: No Was dental information given to patient?: Patient has dentist HPI cataract Surgery 06/02 HPI Details 73-year-old morbidly obese female with a history of low back pain left hip pain coming in for pre-operative exam. Last seen 02/2024. Patient is scheduled to have cataract surgery with [facility] eye care 06/02/2024. Left eye has already been done and the right eye has a blockage but should not have an effect on surgery. hypertension: Blood pressure well controlled 136/82 currently on metoprolol 100 mg daily, diltiazem 240 and hydrochlorothiazide 25 mg daily. obesity: Patient is currently on Ozempic once weekly. Patient has no history of MA, CVA, diabetes mellitus. Patient has had surgery and anesthesia in the past without complication. [facility] Medical History Foul smelling urine Obesity Colon cancer screening COVID-19 virus infection Cataract Preop examination Anemia Hypertension Physical deconditioning Greater trochanteric bursitis of both hips Bilateral primary osteoarthritis of knee Sarcoidosis Gout Surgical History H/O colonoscopy H/O esophagogastroduodenoscopy Hx of tonsillectomy History of hysterectomy Family History Mother No problems noted. Father No problems noted. 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 1. Little interest or pleasure in doing things: not at all 2. Feeling down, depressed, or hopeless: not at all 3. Trouble falling or staying asleep, or sleeping too much: not at all 4. Feeling tired or having little energy: not at all 5. Poor appetite or overeating: not at all 6. Feeling bad about yourself - or that you are a failure or have let yourself or your family down: not at all 7. Trouble concentrating on things, such as reading the newspaper or watching television: not at all 8. Moving or speaking so slowly that other people could have noticed. Or the opposite - being so fidgety or restless that you have been moving around a lot more than usual: not at all 9. Thoughts that you would be better off or of hurting yourself in some way: not at all Total score: 0 Depression Screening Interpretation: Negative Depression Screening Done: Yes 15213 - PHQ-9 Billing: Yes Source: Developed by Drs. Edson Mcarthur, Aidan Powell and colleagues, with an educational rodriguez from [employer] Thrive Questionnaire Date Thrive assessed: 05/27/24 I am a: Patient What is your living situation today?: I have a steady place to live Within the past 12 months, did the food you bought not last and you didn't have the money to get more?: Never true Within the past 12 months, did you worry whether your food would run out before you got money to buy more?: Never true Do you have trouble paying for medicines?: No Do you have trouble getting transportation to medical appointments?: No Do you have trouble paying your heating and electricity bill?: No Do you have trouble taking care of your child, family member or friend?: No Do you have trouble with day-to-day activities such as bathing, preparing meals, shopping, managing finances, etc.?: No Are you currently unemployed and looking for a job?: No Are you interested in more education?: No Please select the resources that you would like help with: None Currently or been in a relationship where the following occur: No concerns reported THRIVE Score: 0 AUDIT C Alcohol Use Questionnaire (AUDIT-C) 1. How often do you have a drink containing alcohol?: Never 3. How often do you have six or more drinks on one occasion?: Never Total Score: 0 Score Reviewed/Action Taken: No TESSIE-7 AMB Questionnaire TESSIE-7 Date TESSIE - 7 assessed: 05/27/24 Feeling nervous, anxious, or on edge: 0 = Not at all Not being able to stop or control worryin = Not at all Worrying too much about different things: 0 = Not at all Trouble relaxin = Not at all Being so restless that it is hard to sit still: 0 = Not at all Becoming easily annoyed or irritable: 0 = Not at all Feeling afraid as if something awful might happen: 0 = Not at all Total TESSIE-7 score (0-4 normal; 5-9 mild; 10-14 moderate; 15-21 severe): 0 Source: Developed by Drs. Edson Mcarthur, Aidan Powell and colleagues, with an educational rodriguez from [employer] Review of Systems Const Denies body aches, Denies chills, Denies fever(s), Denies headache(s) and Denies poor appetite Eyes Reports no additional complaints ENT Denies dysphagia, Denies dizziness, Denies headache(s) and Denies odynophagia Card Denies chest pain, Denies syncope, Denies edema, Denies irregular heart rhythm, Denies lightheadedness and Denies dyspnea Resp Denies cough and Denies dyspnea GI Denies abdominal pain, Denies dysphagia, Denies diarrhea, Denies nausea, Denies odynophagia and Denies vomiting Reports no additional complaints Musc Reports no additional complaints and Denies abnormal gait Skin/Breast Reports system reviewed and no additional complaints, except as documented Neuro Denies abnormal gait, Denies dizziness, Denies syncope and Denies headache(s) Psych Reports no additional complaints Physical exam (Primary Care) Vital Signs: Last Vital Signs Pulse 66 05/27/24 09:10 BP 136/82 05/27/24 09:10 Pulse Ox 96 05/27/24 09:10 Oxygen Delivery Method Room Air 05/27/24 09:10 BMI result Body Mass Index 38.2 Tobacco/Smoking Status: Tobacco use Status Tobacco use date assessed 05/27/24 05/27/24 09:17 Patient Tobacco Use Status Never used Tobacco 05/27/24 09:17 e-Cigarette/Vaping Use Never Used 05/27/24 09:17 PHQ-9: PHQ-9 Score PHQ-9: Total score 0 05/27/24 09:56 Depression Screening Interpretation: Negative Thrive Assessment: Date of Thrive Assessment Date Thrive assessed 05/27/24 05/27/24 09:17 Currently or been in a relationship where the following occur: No concerns reported Const General: cooperative, healthy appearing, comfortable and no acute distress Orientation/consciousness: patient oriented x3 [facility] Head: Yes normocephalic Ears: hearing grossly normal bilaterally General nose exam: Normal external nose present Eyes General: appearance normal, both eyes and all related structures Conjunctivae: conjunctivae normal Neck Neck: Yes full ROM and Yes no lymphadenopathy Resp Effort & Inspection: normal respiratory effort Auscultation: clear to auscultation bilaterally, no crackles, no rales, no rhonchi and no wheezes Cardio Rate: regular rate Rhythm: regular rhythm Skin General skin exam: no rashes or lesions noted Neuro General: patient oriented x3 Gait exam (Neuro): Normal gait present Extrem General: Yes normal to inspection, Yes full ROM and No edema Psych Affect: normal affect Attitude: cooperative Insight: Good insight present (Psych) Judgement: Good judgement present (Psych) Coding Level of Care Code Est Pt Level 3 (03282) Diagnoses Preop examination Z01.818 Additional Codes PHQ-9 - 56921 - PHQ-9 Billing: Yes ([id number]) Assessment & Plan Assessment & Plan (1) Preop examination: Code(s): Z01.818 - Encounter for other preprocedural examination Category: Medical Plan: Regarding preop clearance, the patient is at moderate risk for proposed surgery. Reviewed with the patient that no surgery is completely free of risk and that this examination is to assist the surgeon in reviewing informed consent. Take all medications up until the day of the procedure. As always please follow the surgeon's guidelines in regards to discontinue education of medication. Avoid NSAIDs 1 week prior to surgery. No longer using the Ozempic. EKG and blood work evaluated . No further workup needed at this time and may proceed with the contemplated procedure. Thank you very much for letting me participate in the care of this patient Plan This note was constructed using voice recognition software. While every effort has been made to ensure accuracy and pecan mallow dipper, still areas may have been included sometimes these areas may affect the content or meeting of the given symptoms. Total time spent caring for the patient today was 20 minutes. This includes time spent before the visit reviewing the chart, time spent during the visit, and time spent after the visit and documentation. Orders: Orders ECG 12 lead EKG Today Z01.818 - Encounter for other preprocedural examination Hemoglobin A1c Today Z01.818 - Encounter for other preprocedural examination
--- OUTSIDE RECORDS SUMMARY | 2024-05-27 09:23 | XMS_ITS | Clinical Summary ---
Author Organization [facility] Address [id number] [place] [phone] Care Team Providers Care Squeegee Tender Name Role Phone Unavailable Primary Care Provider Unavailabl e Medical History Medical History Date Comments Essential hypertension, benign 12/20/2005 D X:Essential hypertension, benign Depressive disorder, not els ewhere classified 12/20/2005 DX:Depressive disorder, not elsewhere classified Allergic rhinitis, cause unspecified 04/13/2006 DX:Allergic rhinitis, cause unspecified Unspecified asthma(493.90) 04/13/2006 DX:Un specified asthma(493.90) SVT (supraventricular tachyc ardia) ([facility]/HCC) 07/02/2007 DX:SVT (supraventricular tac hycardia) ([facility]); COMMENT: See note 06/19, and cardiology consultation note 06/19 Social History Tobacco Use Types Packs/Day Years Used Date Smoking Tobacco: Never Alcohol Use Standard Drinks/Week Comments Never 0 (1 standard drink = 0.6 oz pur e alcohol) Comments Unknown Sex and Gender Information Value Date Recorded Sex Assigned at Not on file Legal Sex Female 11:49 AM EST Gender Identity Not on file Sexual Orientation [...] Vaccines (1 of 2) 1998 Pneumococcal Vaccine: 50+ Years (2 of 2 - PCV) 03/23/2008 [...] patient's age to complete this topic Meningococcal B Vacine Aged Out No lo nger eligible based on patient's age to complete this topic RSV Immunization Patients Under 20 months Aged Out No longer eligible b ased on patient's age to complete this topic Varicella Vaccines Aged Out No longer eligible based on patient's age to complete this topic
== END 2024-05-27 09:53 | disposition home or self-care (01) ==
PROVIDERS: PCP Internal Medicine
DX: Z01.818 Encounter for other preprocedural examination (principal)

== ENCOUNTER → 2024-05-27 08:58 | Outpatient (REF) | payer MEDICARE, SELFPAY ==
--- NOTE | 2024-05-27 10:14 | ECG_ITS ---
Test Reason : PREOP Blood Pressure : */* mmHG Vent. Rate : 59 BPM Atrial Rate : 59 BPM P-R Int : 234 ms QRS Dur : 88 ms QT Int : 424 ms P-R-T Axes : 22 -40 6 degrees QTcB Int : 419 ms Sinus bradycardia with 1st degree A-V block Left axis deviation Abnormal ECG When compared with ECG of 21-Mar-2022 10:35, No significant change was found Referred By: Sahara Koo Electronically Signed By: NADYA MONTEZ MD
--- OUTSIDE RECORDS SUMMARY | 2024-05-27 10:51 | XMS_ITS | Clinical Summary ---
Author Organization [facility] Address [address] [place] [phone] Care Team Providers Care Warper Fixer Name Role Phone Unavailable Primary Care Provider Unavailabl e Medical History Medical History Date Comments Essential hypertension, benign 12/20/2005 D X:Essential hypertension, benign Depressive disorder, not els ewhere classified 12/20/2005 DX:Depressive disorder, not elsewhere classified Allergic rhinitis, cause unspecified 04/13/2006 DX:Allergic rhinitis, cause unspecified Unspecified asthma(493.90) 04/13/2006 DX:Un specified asthma(493.90) SVT (supraventricular tachyc ardia) ([facility]/HCC) 07/02/2007 DX:SVT (supraventricular tac hycardia) ([facility]); COMMENT: See note 06/19, and [...]
[2024-05-27 11:04] LABS: Estimated Average Glucose 123 mg/dL; Hemoglobin A1C 122.9471 umol/L; Hemoglobin A1c % 5.9 % (<6.0)
[2024-05-27 11:11] LABS: Alanine Aminotransferase 13 U/L (0-31); Albumin Level 3.9 g/dL (3.5-5.0); Alkaline Phosphatase 55 U/L (39-117); Anion Gap 12 (12-20); Aspartate Amino Transferase 21 U/L (5-31); Bilirubin Total 0.4 mg/dL (0.0-1.0); Blood Urea Nitrogen 17 mg/dL (9-16); Calcium 9.4 mg/dL (8.4-10.2); Carbon Dioxide 28 mmol/L (22-29); Chloride 106 mmol/L (96-108); Estimated Glomerular Filt Rate 48; Glucose Random 93 mg/dL (60-115); Sodium 142 mmol/L (135-145); Total Protein 7.9 g/dL (6.5-8.0)
== END ==
LOC: HO.CARD 08:58
PROVIDERS: PCP Internal Medicine
DX: Z01.818 Encounter for other preprocedural examination (principal); E66.01 Morbid (severe) obesity due to excess calories; Z13.1 Encounter for screening for diabetes mellitus
CPT/HCPCS: 36415; 80053; 83036; 93005; 96127; 99212

== ENCOUNTER → 2024-05-27 10:14 | Outpatient (BNV) | payer MEDICARE, SELFPAY | PROVIDERS: PCP Internal Medicine; Visit Provider Internal Medicine Cardiovascular Disease | DX: R00.1 Bradycardia, unspecified (principal); I44.0 Atrioventricular block, first degree; R94.31 Abnormal electrocardiogram [ECG] [EKG] | CPT/HCPCS: 93010 ==

== ENCOUNTER 2024-05-28 10:22 | Outpatient (AMB) | payer MEDICARE, SELFPAY ==
[2024-05-28 10:27] VITALS: BP 138/84; PULSE 73; O2SAT 97; BMI 38.2
--- NOTE | 2024-05-28 10:27 | A.OFFPC_ITS ---
Vital Signs 05/28/24 10:27 Height 5 ft 3 in Weight 215 lb 8 oz BMI 38.2 BP 138/84 Blood Pressure Location Lt brachial Position Sitting Pulse 73 Pulse Source Pulse Oximeter Pulse Oximetry (%) 97 Oxygen Delivery Method Room Air Intake Visit Reasons: Ear Irrigation Allergies penicillin V Allergy (Unknown, Verified 05/28/24 10:31) Unknown Sulfa (Sulfonamide Antibiotics) Allergy (Unknown, Verified 05/28/24 10:31) unknon Benadryl Allergy (Unknown, Uncoded 05/28/24 10:31) Unknown Tobacco use date assessed: 05/27/24 Dental Screening Dental Screen Date: 05/27/24 HPI Ear Irrigation HPI Details 73-year-old morbidly obese female with a history of low back pain left hip pain coming in for ear cleaning. [facility] Medical History Foul smelling urine Obesity Colon cancer screening COVID-19 virus infection Cataract Preop examination Anemia Hypertension Physical deconditioning Greater trochanteric bursitis of both hips Bilateral primary osteoarthritis of knee Sarcoidosis Gout Surgical History H/O colonoscopy H/O esophagogastroduodenoscopy Hx of tonsillectomy History of hysterectomy Family History Mother No problems noted. Father No problems noted. 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 Edson Mcarthur, Lolis Conrad, Aidan Dorsey and colleagues, with an educational rodriguez from [employer]. Review of Systems Const Reports no additional complaints Eyes Reports no additional complaints ENT Details: ear clogged feeling and decreased hearing bilaterally Card Reports no additional complaints Resp Reports cough Physical exam (Primary Care) Vital Signs: Last Vital Signs Pulse 73 05/28/24 10:27 BP 138/84 05/28/24 10:27 Pulse Ox 97 05/28/24 10:27 Oxygen Delivery Method Room Air 05/28/24 10:27 BMI result Body Mass Index 38.2 Tobacco/Smoking Status: Tobacco use Status Tobacco use date assessed 05/27/24 05/28/24 10:32 Patient Tobacco Use Status Never used Tobacco 05/28/24 10:32 e-Cigarette/Vaping Use Never Used 05/28/24 10:32 Thrive Assessment: Date of Thrive Assessment Date Thrive assessed 05/27/24 05/28/24 10:32 Const General: cooperative, healthy appearing, comfortable and no acute distress HENMT Head: Yes normocephalic Ears: hearing grossly normal bilaterally and Abnormal EAC present cerumen impaction bilateral General nose exam: Normal external nose present Resp Effort & Inspection: normal respiratory effort Cardio Rate: regular rate Psych Affect: normal affect Attitude: cooperative Insight: Good insight present (Psych) Judgement: Good judgement present (Psych) Office Procedures Cerumen Removal From which ear canal was the cerumen removed: bilateral Removal: irrigation and cerumen loop/spoon Notes: patient tolerated procedure well, no complications and ear canal clear [id number] Irrigation/Lavage Coding Level of Care Code Procedure Only Diagnoses Impacted cerumen of both ears H61.23 CPT Codes Office Procedure - CPT: 30603-Cyq Irrigation/Lavage ([id number]) Assessment & Plan Assessment & Plan (1) Impacted cerumen of both ears: Code(s): H61.23 - Impacted cerumen, bilateral Category: Medical Plan: Bilateral ears were cleaned using irrigation and lighted curette. EACs are clear and TMs visualized as intact with well aerated middle ear spaces. Patient tolerated procedure well denies any dizziness or lightheadedness. Continue to follow up as needed for this concern. Orders: Orders SARS-CoV2/FLU/RSV Today R09.89 - Other specified symptoms and signs involving the circulatory and respiratory systems
--- OUTSIDE RECORDS SUMMARY | 2024-05-28 11:12 | XMS_ITS | Clinical Summary ---
Author Organization [facility] Address [address] [place] [phone] Care Team Providers Care Trapeze Artist Name Role Phone Unavailable Primary Care Provider Unavailabl e Medical History Medical History Date Comments Essential hypertension, benign 12/20/2005 D X:Essential hypertension, benign Depressive disorder, not els ewhere classified 12/20/2005 DX:Depressive disorder, not elsewhere classified Allergic rhinitis, cause unspecified 04/13/2006 DX:Allergic rhinitis, cause unspecified Unspecified asthma(493.90) 04/13/2006 DX:Un specified asthma(493.90) SVT (supraventricular tachyc ardia) ([facility]/HCC) 07/02/2007 DX:SVT (supraventricular tac hycardia) ([facility]); COMMENT: See note 06/19, and cardiology consultation [...]
== END 2024-05-28 10:58 | disposition home or self-care (01) ==
PROVIDERS: PCP Internal Medicine
DX: R05.9 Cough, unspecified (principal); H61.23 Impacted cerumen, bilateral

== ENCOUNTER → 2024-05-28 10:22 | Outpatient (BNVA) | payer MEDICARE, SELFPAY | PROVIDERS: PCP Internal Medicine | DX: H61.23 Impacted cerumen, bilateral (principal) | CPT/HCPCS: 69210; 99212 ==

== ENCOUNTER 2024-05-28 11:05 | Outpatient (REF) | payer MEDICARE, SELFPAY ==
--- OUTSIDE RECORDS SUMMARY | 2024-05-28 12:01 | XMS_ITS | Clinical Summary ---
Author Organization [facility] Address [address] [place] [phone] Care Team Providers Care Precision Assembly Inspector Name Role Phone Unavailable Primary Care Provider Unavailabl e Medical History Medical History Date Comments Essential hypertension, benign 12/20/2005 D X:Essential hypertension, benign Depressive disorder, not els ewhere classified 12/20/2005 DX:Depressive disorder, not elsewhere classified Allergic rhinitis, cause unspecified 04/13/2006 DX:Allergic rhinitis, cause unspecified Unspecified asthma(493.90) 04/13/2006 DX:Un specified asthma(493.90) SVT (supraventricular tachyc ardia) ([facility]/HCC) 07/02/2007 DX:SVT (supraventricular tac hycardia) ([facility]); COMMENT: See note 06/19, and cardiology consultation [...]
[2024-05-28 12:30] LABS: Influenza A PCR NEGATIVE (Negative); Influenza B PCR NEGATIVE (Negative); Resp Syncy Virus RNA Qual PCR NEGATIVE (Negative); SARS COV2 PCR INHOUSE NEGATIVE (Negative)
== END 2024-05-28 11:06 | disposition home or self-care (01) ==
LOC: HO.LAB 11:05
PROVIDERS: PCP Internal Medicine
DX: R09.89 Other specified symptoms and signs involving the circulatory and respiratory systems (principal); R05.1 Acute cough
CPT/HCPCS: 0241U

== ENCOUNTER 2024-06-03 09:59 | Emergency (ER) | payer MEDICARE, SELFPAY ==
[2024-06-03 10:29] VITALS: BP 177/86; PULSE 71; RESP 16; TEMP 36.4; O2SAT 98; BMI 36.7
--- NOTE | 2024-06-03 11:00 | ECG_ITS ---
Test Reason : DIZZINESS Blood Pressure : */* mmHG Vent. Rate : 76 BPM Atrial Rate : 76 BPM P-R Int : 208 ms QRS Dur : 94 ms QT Int : 390 ms P-R-T Axes : 47 -44 39 degrees QTcB Int : 438 ms Normal sinus rhythm Left axis deviation Abnormal ECG When compared with ECG of 27-May-2024 10:22, No significant change was found Referred By: Pema Leary Electronically Signed By: KYM KOCH
[2024-06-03 11:22] LABS: MANUAL DIFF FLAG NO
[2024-06-03 11:23] LABS: Basophils Percent Auto 0.6 % (0-2); Eosinophils Absolute Auto 0.1 X10*3/uL (0.0-0.4); Eosinophils Percent Auto 0.9 % (0-4); Hematocrit 36.8 % (37.0-47.0); Hemoglobin 11.7 g/dl (12.0-16.0); Imm Gran Abs Auto 0.02 X10*3/uL (0.00-0.03); Imm Gran Pct Auto 0.3 % (0.0-0.4); Lymphocytes Absolute Auto 1.8 X10*3/uL (1.2-4.9); Lymphocytes Percent Auto 25.8 % (20-40); Mean Corpuscular HGB Conc 31.8 g/dl (31.0-35.0); Mean Corpuscular Hemoglobin 29.8 pg (27.0-33.0); Mean Corpuscular Volume 93.9 fL (80.0-98.0); Mean Platelet Volume 10.4 fL (9.4-12.3); Monocytes Absolute Auto 0.4 X10*3/uL (0.1-1.2); Monocytes Percent Auto 6.2 % (2-11); Neutrophils Absolute Auto 4.6 x10*3/uL (2.0-8.3); Neutrophils Percent Auto 66.2 % (45-73); Platelet Count 172 X10*3/uL (160-400); Red Blood Count 3.92 X10*6/uL (4.20-5.50); Red Cell Distribution Width 14.5 % (11.0-16.0); White Blood Count 6.9 X10*3/uL (4.8-10.8)
[2024-06-03 11:30] LABS: INTERNATIONAL NORM RATIO 1.1 (0.9-1.1); Prothrombin Time 12.4 SEC (10.9-12.4)
[2024-06-03 11:39] LABS: Alanine Aminotransferase 11 U/L (0-31); Albumin Level 3.9 g/dL (3.5-5.0); Alkaline Phosphatase 61 U/L (39-117); Anion Gap 12 (12-20); Aspartate Amino Transferase 22 U/L (5-31); Bilirubin Total 0.4 mg/dL (0.0-1.0); Blood Urea Nitrogen 24 mg/dL (9-16); Calcium 9.3 mg/dL (8.4-10.2); Carbon Dioxide 29 mmol/L (22-29); Chloride 108 mmol/L (96-108); Estimated Glomerular Filt Rate 54; Glucose Random 98 mg/dL (60-115); Potassium 3.7 mmol/L (3.3-5.1); Sodium 145 mmol/L (135-145); Total Protein 8.2 g/dL (6.5-8.0)
[2024-06-03 11:46] LABS: B Type Natriuretic Peptide 19 pg/mL (<100); Troponin-I High Sensitivity 4.3 ng/L (<3.5-17.0)
[2024-06-03 12:00] LABS: Influenza A PCR NEGATIVE (Negative); Influenza B PCR NEGATIVE (Negative); Resp Syncy Virus RNA Qual PCR NEGATIVE (Negative); SARS COV2 PCR INHOUSE NEGATIVE (Negative)
[2024-06-03 12:07] VITALS: BP 192/90; PULSE 76; RESP 20; TEMP 36.6; O2SAT 98
--- NOTE | 2024-06-03 12:22 | MHC.EDTECH ---
vital signs documented and reported to triage provider Pema
== END 2024-06-03 20:04 | disposition left against medical advice (07) ==
PROVIDERS: Registered Nurse Emergency; Emergency Provider Emergency Medicine; PCP Internal Medicine
DX: R42 Dizziness and giddiness (principal); R94.31 Abnormal electrocardiogram [ECG] [EKG]; R06.02 Shortness of breath; Z03.818 Encounter for observation for suspected exposure to other biological agents ruled out; Z51.81 Encounter for therapeutic drug level monitoring; Z79.899 Other long term (current) drug therapy
CPT/HCPCS: 0241U; 80053; 83880; 84484; 85025; 85610; 93005; 99281; 99283

== ENCOUNTER → 2024-06-03 11:00 | Outpatient (BNV) | payer MEDICARE, SELFPAY | PROVIDERS: Emergency Provider Emergency Medicine; PCP Internal Medicine; Visit Provider Internal Medicine | DX: R42 Dizziness and giddiness (principal); R94.31 Abnormal electrocardiogram [ECG] [EKG] | CPT/HCPCS: 93010 ==

== ENCOUNTER 2024-06-04 11:20 | Outpatient (AMB) | payer MEDICARE, SELFPAY ==
--- NOTE | 2024-06-04 11:22 | A.OFFPC_ITS ---
Vital Signs 06/04/24 11:23 Height 5 ft 3 in Weight 212 lb 2 oz BMI 37.6 BP 130/78 Blood Pressure Location Lt brachial Position Sitting Pulse 76 Pulse Source Pulse Oximeter Temp 97.3 F Temp Source Temporal Artery Scan Pulse Oximetry (%) 97 Oxygen Delivery Method Room Air Intake Visit Reasons: f/u obesity Intake Note: Patient is here to follow up on Obesity. Consumer Safety Officer Required: No Epic Willow Specialist: Not Required per policy Accompanied by: Self / Same As Patient Allergies penicillin V Allergy (Unknown, Verified 06/04/24 11:23) Unknown Sulfa (Sulfonamide Antibiotics) Allergy (Unknown, Verified 06/04/24 11:23) unknon Benadryl Allergy (Unknown, Uncoded 06/04/24 11:23) Unknown Medication List - Last Reconciled 06/04/24 by Sahara Koo PA-C albuterol sulfate 90 mcg/actuation (Ventolin HFA) 2 puffs inhalation Q4-6H PRN ascorbate calcium (vitamin C) 500 mg PO BID 90 days cyanocobalamin (vitamin B-12) 1,000 mcg PO DAILY 90 days diltiazem HCl CD 240 mg PO DAILY 90 days hydrochlorothiazide 25 mg PO DAILY 90 days metoprolol succinate ER 100 mg PO DAILY multivitamin (One-A-Day Essential tablet) 1 tab PO DAILY tramadol 50 mg PO BID Tobacco use date assessed: 06/04/24 Fall risk assessment: No Falls in past year Last assessed Fall Risk: 06/04/24 Dental Screening Dental Screen Date: 05/27/24 HPI f/u obesity HPI Details 73-year-old morbidly obese female with a history of low back pain left hip pain coming in for follow up. In review of the notes, she was seen in [facility] 06/03/2024 for dizziness and elevated blood pressure EKG was completed which was abnormal but has not changed since 2021 and blood pressure was elevated patient left without being seen. Patient tells us today she had 2 isolated episodes of high blood pressure. The 1st being the day of her procedure or cataract surgery when she went in for the procedure her blood pressure is elevated and was given medication to lower the blood pressure. Second episode was yesterday which brought her to the ED, EKG was stable. She tells us that resolved spontaneously after a few minutes patient took her blood pressure medication and has been monitoring her blood pressure at home. Blood pressures at home have been within normal limits and patient has been asymptomatic except for the few isolated episodes. [facility] Medical History Foul smelling urine Obesity Colon cancer screening COVID-19 virus infection Cataract Preop examination Anemia Hypertension Physical deconditioning Greater trochanteric bursitis of both hips Bilateral primary osteoarthritis of knee Sarcoidosis Gout Surgical History History of cataract surgery H/O colonoscopy H/O esophagogastroduodenoscopy Hx of tonsillectomy History of hysterectomy Family History Mother No problems noted. Father No problems noted. 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 Edson Mcarthur, Lolis Conrad, Aidan Dorsey and colleagues, with an educational rodriguez from [employer]. Review of Systems Const Denies body aches, Denies chills, Denies fever(s), Denies headache(s) and Denies poor appetite Eyes Reports no additional complaints ENT Denies dysphagia, Denies dizziness, Denies headache(s) and Denies odynophagia Card Denies chest pain, Denies syncope, Denies edema, Denies irregular heart rhythm, Denies lightheadedness and Denies dyspnea Resp Denies cough and Denies dyspnea GI Denies abdominal pain, Denies constipation, Denies dysphagia, Denies diarrhea, Denies nausea, Denies odynophagia and Denies vomiting Reports no additional complaints Musc Reports no additional complaints and Denies abnormal gait Skin/Breast Reports system reviewed and no additional complaints, except as documented Neuro Denies abnormal gait, Denies dizziness, Denies syncope and Denies headache(s) Psych Reports no additional complaints Physical exam (Primary Care) Vital Signs: Last Vital Signs Temp 97.3 F 06/04/24 11:23 Pulse 76 06/04/24 11:23 BP 130/78 06/04/24 11:23 Pulse Ox 97 06/04/24 11:23 Oxygen Delivery Method Room Air 06/04/24 11:23 BMI result Body Mass Index 37.6 Tobacco/Smoking Status: Tobacco use Status Tobacco use date assessed 06/04/24 06/04/24 11:29 Patient Tobacco Use Status Never used Tobacco 06/04/24 11:29 e-Cigarette/Vaping Use Never Used 06/04/24 11:29 Thrive Assessment: Date of Thrive Assessment Date Thrive assessed 05/27/24 06/04/24 11:29 Const General: cooperative, healthy appearing, comfortable and no acute distress Orientation/consciousness: patient oriented x3 HENMT Head: Yes normocephalic Ears: hearing grossly normal bilaterally General nose exam: Normal external nose present Eyes General: appearance normal, both eyes and all related structures Conjunctivae: conjunctivae normal Neck Neck: Yes full ROM and Yes no lymphadenopathy Resp Effort & Inspection: normal respiratory effort Auscultation: clear to auscultation bilaterally, no crackles, no rales, no rhonchi and no wheezes Cardio Rate: regular rate Rhythm: regular rhythm Skin General skin exam: no rashes or lesions noted Neuro General: patient oriented x3 Gait exam (Neuro): Normal gait present Extrem General: Yes normal to inspection, Yes full ROM and No edema Psych Affect: normal affect Attitude: cooperative Insight: Good insight present (Psych) Judgement: Good judgement present (Psych) Coding Level of Care Code Est Pt Level 3 (28749) Diagnoses Essential hypertension I10 Hypertension type: essential hypertension Morbid (severe) obesity due to excess calories E66.01 Assessment & Plan Assessment & Plan (1) Hypertension: Code(s): I10 - Essential (primary) hypertension Category: Medical Qualifiers: Hypertension type: essential hypertension Qualified Code(s): I10 - Essential (primary) hypertension Plan: Continue on current blood pressure medication. Avoid salt intake and encourage healthy diet and regular exercise. Advised patient to continue to monitor blood pressures at home if values are persistently over 140/90 and/or she begins having symptoms such as chest pain or dizziness to reach out to the office. I reviewed with the patient red flag symptoms and when she needs to present to the emergency department and when it is appropriate to reach out to the office. Plan to keep a log of blood pressures and follow up at next visit. (2) Morbid (severe) obesity due to excess calories: Code(s): E66.01 - Morbid (severe) obesity due to excess calories Category: Medical Plan: Not currently using Ozempic but has noted weight loss since last several visits. Continue to follow with endocrinology with nutrition Plan This note was constructed using voice recognition software. While every effort has been made to ensure accuracy and sawyer helper, still areas may have been included sometimes these areas may affect the content or meeting of the given symptoms. Total time spent caring for the patient today was 20 minutes. This includes time spent before the visit reviewing the chart, time spent during the visit, and time spent after the visit and documentation.
[2024-06-04 11:23] VITALS: BP 130/78; PULSE 76; TEMP 36.3; O2SAT 97; BMI 37.6
--- OUTSIDE RECORDS SUMMARY | 2024-06-04 12:27 | XMS_ITS | Clinical Summary ---
Author Organization [facility] Address [id number] [place] [id number] Care Team Providers Care Quality Assurance Coach Name Role Phone Unavailable Primary Care Provider Unavailabl e Medical History Medical History Date Comments Essential hypertension, benign 12/20/2005 D X:Essential hypertension, benign Depressive disorder, not els ewhere classified 12/20/2005 DX:Depressive disorder, not elsewhere classified Allergic rhinitis, cause unspecified 04/13/2006 DX:Allergic rhinitis, cause unspecified Unspecified asthma(493.90) 04/13/2006 DX:Un specified asthma(493.90) SVT (supraventricular tachyc ardia) ([facility]/H[facility]) 07/02/2007 DX:SVT (supraventricular tac hycardia) ([facility]); COMMENT: See note 06/19, and cardiology [...]
== END 2024-06-04 12:06 | disposition home or self-care (01) ==
PROVIDERS: PCP Internal Medicine
DX: I10 Essential (primary) hypertension (principal); E66.01 Morbid (severe) obesity due to excess calories; Z68.37 Body mass index [BMI] 37.0-37.9, adult

== ENCOUNTER → 2024-06-04 11:20 | Outpatient (BNVA) | payer MEDICARE, SELFPAY | PROVIDERS: PCP Internal Medicine | DX: I10 Essential (primary) hypertension (principal); E66.01 Morbid (severe) obesity due to excess calories; Z68.37 Body mass index [BMI] 37.0-37.9, adult; Z71.3 Dietary counseling and surveillance | CPT/HCPCS: 99212 ==

== ENCOUNTER 2024-06-11 09:57 | Outpatient (AMB) | payer MEDICARE, SELFPAY ==
[2024-06-11 10:25] VITALS: BP 158/88; PULSE 68; O2SAT 95; BMI 38.1
--- NOTE | 2024-06-11 10:25 | MHC.PC.OV ---
Vital Signs 06/11/24 10:25 Height 5 ft 3 in Weight 215 lb BMI 38.1 BP 158/88 H Blood Pressure Location Lt brachial Position Sitting Pulse 68 Pulse Source Pulse Oximeter Pulse Oximetry (%) 95 Oxygen Delivery Method Room Air Intake Visit Reasons: ? Vertigo, C 2 high bp Allergies penicillin V Allergy (Unknown, Verified 06/11/24 10:26) Unknown Sulfa (Sulfonamide Antibiotics) Allergy (Unknown, Verified 06/11/24 10:26) unknon Benadryl Allergy (Unknown, Uncoded 06/11/24 10:26) Unknown Tobacco use date assessed: 06/11/24 Fall risk assessment: No Falls in past year Last assessed Fall Risk: 06/11/24 Dental Screening Dental Screen Date: 05/27/24 HPI [facility] 06/03 high bp HPI Details PAtient takes clonidine 0.2 mg BID states too low PFSH Medical History Foul smelling urine Obesity Colon cancer screening COVID-19 virus infection Cataract Preop examination Anemia Hypertension Physical deconditioning Greater trochanteric bursitis of both hips Bilateral primary osteoarthritis of knee Sarcoidosis Gout Surgical History History of cataract surgery H/O colonoscopy H/O esophagogastroduodenoscopy Hx of tonsillectomy History of hysterectomy Family History Mother No problems noted. Father No problems noted. 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 1. Little interest or pleasure in doing things: not at all 2. Feeling down, depressed, or hopeless: not at all 3. Trouble falling or staying asleep, or sleeping too much: not at all 4. Feeling tired or having little energy: not at all 5. Poor appetite or overeating: not at all 6. Feeling bad about yourself - or that you are a failure or have let yourself or your family down: not at all 7. Trouble concentrating on things, such as reading the newspaper or watching television: not at all 8. Moving or speaking so slowly that other people could have noticed. Or the opposite - being so fidgety or restless that you have been moving around a lot more than usual: not at all 9. Thoughts that you would be better off or of hurting yourself in some way: not at all Total score: 0 Depression Screening Interpretation: Negative Depression Screening Done: Yes 51579 - PHQ-9 Billing: Yes Source: Developed by Drs. Edson Mcarthur, Lolis Conrad, Aidan Dorsey and colleagues, with an educational rodriguez from [employer]. Thrive Questionnaire Date Thrive assessed: 05/27/24 TESSIE-7 AMB Questionnaire TESSIE-7 Date TESSIE - 7 assessed: 05/27/24 Source: Developed by Drs. Edson Mcarthur, Lolis Conrad, Aidan Dorsey and colleagues, with an educational rodriguez from [employer]. Physical exam (Primary Care) Vital Signs: Last Vital Signs Pulse 68 06/11/24 10:25 BP 158/88 H 06/11/24 10:25 Pulse Ox 95 06/11/24 10:25 Oxygen Delivery Method Room Air 06/11/24 10:25 BMI result Body Mass Index 38.1 Tobacco/Smoking Status: Tobacco use Status Tobacco use date assessed 06/11/24 06/11/24 10:27 Patient Tobacco Use Status Never used Tobacco 06/11/24 10:27 Tobacco use type Cigarette 06/11/24 10:27 e-Cigarette/Vaping Use Never Used 06/11/24 10:27 PHQ-9: PHQ-9 Score PHQ-9: Total score 0 06/11/24 10:42 Depression Screening Interpretation: Negative Thrive Assessment: Date of Thrive Assessment Date Thrive assessed 05/27/24 06/11/24 10:27 Const General: alert; No acute distress Eyes Conjunctivae: conjunctivae normal Resp Auscultation: clear to auscultation bilaterally Cardio Rate: regular rate Rhythm: regular rhythm GI Inspection: Yes normal to inspection Extrem General: Yes normal to inspection and No edema Coding Level of Care Code Est Pt Level 4 (78798) Diagnoses Essential hypertension I10 Hypertension type: essential hypertension Obesity (BMI 30-39.9) E66.9 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 Decrease salt intake and exercise patient needs to lose the weight presently on clonidine 0.2 mg twice a day diltiazem 240 mg once a day hydrochlorothiazide 25 mg once a day metoprolol 100 mg once a day presently blood pressure is 158/88 with pulse rate of 68 (2) Obesity (BMI 30-39.9): Code(s): E66.9 - Obesity, unspecified Category: Medical Plan: Diet and exercise (3) Vertigo of central origin: Code(s): H81.4 - Vertigo of central origin Category: Medical Plan History of Present Illness The patient is a 73-year-old female presenting for management of hypertension and follow-up for dizziness post-cataract surgery. She has documented hypertension, for which she is on multiple antihypertensive medications, including clonidine, diltiazem, hydrochlorothiazide, and metoprolol. She experienced episodes of symptomatic hypotension following medication adjustments, raising concerns about appropriate blood pressure management. Following right cataract surgery on June 02, 2024, the patient has suffered from persistent dizziness. She reports a swirling sensation without associated nausea or ear discomfort. Evaluation revealed a potential contributory role of dehydration, along with an underlying mild anemia. Recent laboratory work showed a hemoglobin level of 11.7 g/dL and a BUN level of 24, suggestive of insufficient hydration status. Dietary recommendations include increasing water intake to mitigate dehydration. The patient's medical history includes recent complaints of low back pain and left hip pain after an emergency room visit documented on June 03, 2024, with elevated blood pressure readings noted at the time. The pain's current status remains unspecified, and there is no elaboration on any additional therapeutic interventions. Health Maintenance - Mammogram is up to date. - Colonoscopy completed in 2020. - Recent blood work in May 2024 indicating mild anemia and normal liver function tests, except for dehydration reflected by elevated sodium and BUN. - Updated cholesterol results from May 2023 with LDL at 82 mg/dL. - Lifestyle modification recommendations emphasized the importance of increased water intake due to diuretic use and dehydration. Social History - The patient drinks about four small bottles of water daily, indicating improper hydration. - Reports regular intake of flavored water without sugar for hydration. - Acknowledged prior excessive soda consumption; reduction advised. - Increased fluid intake instructed due to hydrochlorothiazide use. Review of Systems - Cardiovascular: Reports dizziness with positional changes since cataract surgery, no chest pain stated. - ENT: No ear pain, denies sore throat. - Gastrointestinal: Denies nausea. - Respiratory: Denies shortness of breath. - Musculoskeletal: Reports ongoing lower back and left hip pain. - No additional symptoms were reported. Physical Exam - Neurological- Cranial nerve function checks performed; shrug shoulders, close eyes tightly; muscle strength and coordination observed. - ENT- Ear examination noted clearance following prior ear canal cleaning. Results - Labs: Hemoglobin 11.7 g/dL, Hematocrit 36.8%, Sodium 145 mmol/L, BUN 24 mg/dL, Creatinine 1.0 mg/dL, LDL 82 mg/dL (May 2023), mild anemia detected. - Tests: None specified. - Diagnostics: None specified. Plan I have adjusted the patient's antihypertensive regimen to mitigate hypotension risks by reducing her clonidine dose and replacing her hydrochlorothiazide with lisinopril-hydrochlorothiazide. Physical therapy is recommended for assessing post-operative dizziness related to cataract surgery. Emphasis is placed on adequate hydration to address observed dehydration. Further monitoring of her blood pressure, anemia, and response to therapy is planned with expectations for a follow-up assessment in six weeks. Patient was informed and verbally consented to the use of an ambient scribe for clinic note documentation during this visit. Discussion Notes I reviewed the management of the patient?s hypertension, addressing potential hypotension episodes by modifying her clonidine and hydrochlorothiazide regimen. We discussed the new prescription of lisinopril-hydrochlorothiazide for daily use. I recommended lifestyle changes for fluid intake improvement due to mild dehydration linked with diuretic therapy. A referral to physical therapy was made for her persistent dizziness post-cataract surgery to evaluate and possibly mitigate symptoms. We agreed upon a follow-up plan for comprehensive blood pressure management and fluid status evaluation, ensuring all safety parameters are met in her treatment protocol. Patient Instructions - Begin taking lisinopril-hydrochlorothiazide 10 mg/12.5 mg once daily as prescribed. - Reduce clonidine to 0.1 mg twice a day. - Maintain current doses of metoprolol and diltiazem. - Increase daily water intake to at least four 16-ounce bottles to counteract dehydration. - Monitor blood pressure regularly using an arm cuff device. - Attend physical therapy for dizziness management as scheduled. - Return for follow-up in six weeks to reassess hypertension management. - Abstain from any further use of prior antihypertensive prescriptions; dispose of properly. - Contact me immediately if experiencing significantly low blood pressure (below 110 systolic) or if dizziness persists. Orders: Orders PT Evaluation and Treatment Today H81.4 - Vertigo of central origin Medications: New lisinopril-hydrochlorothiazide 10-12.5 mg 1 tab PO DAILY 30 tabs 3RF I10 - Essential (primary) hypertension Changed From clonidine HCl 0.2 mg PO BID 30 tabs 0RF To clonidine HCl 0.1 mg PO BID 60 tabs 2RF Discontinued hydrochlorothiazide Discontinued Reason: Doctor's Order 25 mg PO DAILY 90 days 90 tabs 2RF
--- OUTSIDE RECORDS SUMMARY | 2024-06-11 10:58 | XMS_ITS | Clinical Summary ---
Author Organization [facility] Address [id number] [place] [id number] Care Team Providers Care Precision Lathe Operator Name Role Phone Unavailable Primary Care Provider Unavailabl e Medical History Medical History Date Comments Essential hypertension, benign 12/20/2005 D X:Essential hypertension, benign Depressive disorder, not els ewhere classified 12/20/2005 DX:Depressive disorder, not elsewhere classified Allergic rhinitis, cause unspecified 04/13/2006 DX:Allergic rhinitis, cause unspecified Unspecified asthma(493.90) 04/13/2006 DX:Un specified asthma(493.90) SVT (supraventricular tachyc ardia) ([facility]) 07/02/2007 DX:SVT (supraventricular tac hycardia) ([facility]); COMMENT: See note 06/19, and cardiology consultation [...]
== END 2024-06-11 11:15 | disposition home or self-care (01) ==
PROVIDERS: PCP Internal Medicine; Visit Provider Internal Medicine
DX: I10 Essential (primary) hypertension (principal); E66.9 Obesity, unspecified; H81.4 Vertigo of central origin; Z68.38 Body mass index [BMI] 38.0-38.9, adult

== ENCOUNTER → 2024-06-11 09:57 | Outpatient (BNVA) | payer MEDICARE, SELFPAY | PROVIDERS: PCP Internal Medicine; Visit Provider Internal Medicine | DX: I10 Essential (primary) hypertension (principal); E66.9 Obesity, unspecified; H81.4 Vertigo of central origin | CPT/HCPCS: 96127; 99212 ==

== ENCOUNTER 2024-07-23 10:04 | Outpatient (AMB) | payer MEDICARE, SELFPAY ==
[2024-07-23 10:11] VITALS: BP 136/70; PULSE 68; O2SAT 97; BMI 38.0
--- NOTE | 2024-07-23 10:11 | A.OFFPC_ITS ---
Vital Signs 07/23/24 10:11 Height 5 ft 3 in Weight 214 lb 8 oz BMI 38.0 BP 136/70 Blood Pressure Location Lt brachial Position Sitting Pulse 68 Pulse Source Pulse Oximeter Pulse Oximetry (%) 97 Oxygen Delivery Method Room Air Intake Visit Reasons: 6 week f/u Allergies penicillin V Allergy (Unknown, Verified 07/23/24 10:14) Unknown Sulfa (Sulfonamide Antibiotics) Allergy (Unknown, Verified 07/23/24 10:14) unknon Benadryl Allergy (Unknown, Uncoded 07/23/24 10:14) Unknown Medication List - Last Reconciled 07/23/24 by Eduardo Guaman MD albuterol sulfate 90 mcg/actuation (Ventolin HFA) 2 puffs inhalation Q4-6H PRN ascorbate calcium (vitamin C) 500 mg PO BID 90 days clonidine HCl 0.1 mg PO BID cyanocobalamin (vitamin B-12) 1,000 mcg PO DAILY 90 days diltiazem HCl CD 240 mg PO DAILY 90 days hydrochlorothiazide 25 mg PO DAILY 90 days meclizine 25 mg PO BID PRN metoprolol succinate ER 100 mg PO DAILY multivitamin (One-A-Day Essential tablet) 1 tab PO DAILY tramadol 50 mg PO BID Tobacco use date assessed: 06/11/24 Fall risk assessment: No Falls in past year Last assessed Fall Risk: 07/23/24 Dental Screening Dental Screen Date: 05/27/24 [facility] Medical History Foul smelling urine Obesity Colon cancer screening COVID-19 virus infection Cataract Preop examination Anemia Hypertension Physical deconditioning Greater trochanteric bursitis of both hips Bilateral primary osteoarthritis of knee Sarcoidosis Gout Surgical History History of cataract surgery H/O colonoscopy H/O esophagogastroduodenoscopy Hx of tonsillectomy History of hysterectomy Family History Mother No problems noted. Father No problems noted. 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 1. Little interest or pleasure in doing things: not at all 2. Feeling down, depressed, or hopeless: not at all 3. Trouble falling or staying asleep, or sleeping too much: not at all 4. Feeling tired or having little energy: not at all 5. Poor appetite or overeating: not at all 6. Feeling bad about yourself - or that you are a failure or have let yourself or your family down: not at all 7. Trouble concentrating on things, such as reading the newspaper or watching television: not at all 8. Moving or speaking so slowly that other people could have noticed. Or the opposite - being so fidgety or restless that you have been moving around a lot more than usual: not at all 9. Thoughts that you would be better off or of hurting yourself in some way: not at all Total score: 0 Depression Screening Interpretation: Negative Depression Screening Done: Yes 12192 - PHQ-9 Billing: Yes Source: Developed by Drs. Edson Mcarthur, Aidan Powell and colleagues, with an educational rodriguez from [employer] Thrive Questionnaire Date Thrive assessed: 05/27/24 AUDIT C Alcohol Use Questionnaire (AUDIT-C) 1. How often do you have a drink containing alcohol?: Never 3. How often do you have six or more drinks on one occasion?: Never Total Score: 0 Score Reviewed/Action Taken: No TESSIE-7 AMB Questionnaire TESSIE-7 Date TESSIE - 7 assessed: 05/27/24 Source: Developed by Drs. Edson Mcarthur, Aidan Powell and colleagues, with an educational rodriguez from [employer] Physical exam (Primary Care) Vital Signs: Last Vital Signs Pulse 68 07/23/24 10:11 BP 136/70 07/23/24 10:11 Pulse Ox 97 07/23/24 10:11 Oxygen Delivery Method Room Air 07/23/24 10:11 BMI result Body Mass Index 38.0 Tobacco/Smoking Status: Tobacco use Status Tobacco use date assessed 06/11/24 07/23/24 10:14 Patient Tobacco Use Status Never used Tobacco 07/23/24 10:14 Tobacco use type Cigarette 07/23/24 10:14 e-Cigarette/Vaping Use Never Used 07/23/24 10:14 PHQ-9: PHQ-9 Score PHQ-9: Total score 0 07/23/24 10:24 Depression Screening Interpretation: Negative Thrive Assessment: Date of Thrive Assessment Date Thrive assessed 05/27/24 07/23/24 10:14 Const General: alert; No acute distress Eyes Conjunctivae: conjunctivae normal Resp Auscultation: clear to auscultation bilaterally Cardio Rate: regular rate Rhythm: regular rhythm GI Inspection: Yes normal to inspection Extrem General: Yes normal to inspection and No edema Coding Level of Care Code Est Pt Level 4 (89355) Diagnoses Obesity (BMI 30-39.9) E66.9 Essential hypertension I10 Hypertension type: essential hypertension Lumbar back pain M54.50 Additional Codes PHQ-9 - 20355 - PHQ-9 Billing: Yes ([id number]) Assessment & Plan Assessment & Plan (1) Obesity (BMI 30-39.9): Code(s): E66.9 - Obesity, unspecified Category: Medical Plan: Diet and exercise (2) Hypertension: Code(s): I10 - Essential (primary) hypertension Category: Medical Qualifiers: Hypertension type: essential hypertension Qualified Code(s): I10 - Essential (primary) hypertension Plan: Continue with blood pressure medication. Decrease salt intake and exercise on metoprolol 100 mg once a day clonidine 0.1 mg twice a day hydrochlorothiazide 25 mg once a day and diltiazem 240 mg once a day. (3) Lumbar back pain: Comment: July 2023Moderate multilevel lumbar spondylosis. 2. 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 3. Degenerative changes in the right sacroiliac joint greater than left. Code(s): M54.50 - Low back pain, unspecified Category: Medical Plan: Continue with pain medication as needed Plan History of Present Illness The patient is a 73-year-old female presenting with vertigo. The vertigo symptoms were noted during a previous consultation and led to a recommendation for physical therapy, though the therapy was not commenced due to lack of communication from the therapy providers. Patient currently describes the dizziness as being more noticeable at night, exacerbated by specific head and body movements while in bed, decreasing somewhat in severity during the day. The contriburory explanation of inner ear involvement and electrolyte shift impacts were briefly discussed in relation to the dizziness. The patient remains compliant with her medication regimen for hypertension and knee osteoarthritis, managing these chronic conditions with a multi-drug regimen, including pain medication as needed. Her vertigo persists despite these treatments, and she is encouraged to maintain adequate hydration to manage potential symptoms. Health Maintenance - Mammogram due next month. - Colonoscopy is up to date. - Last blood work (June 03): mild anemia, hemoglobin 11.7 g/dL. - Last cholesterol (May 2023): 82 mg/dL. - Encouraged hydration and regular exercise. Social History - Engages in light exercise when possible. - Actively manages hydration with water intake. - Adjusts daily activities to accommodate for knee osteoarthritis and vertigo. Review of Systems - Neurological: Reports dizziness/vertigo, particularly at night with position changes. - Musculoskeletal: Reports pain related to knee osteoarthritis. - Cardiovascular: Denies chest pain or palpitations; blood pressure under control with current medication. - Genitourinary: Reports frequent nighttime urination (1-3 times per night). - Respiratory: Denies shortness of breath; reports normal breathing. - Gastrointestinal: Reports normal bowel movements. Physical Exam - Musculoskeletal- Full strength in both thighs; no observed muscular weakness. - Neurological- Able to follow motor commands; no cerebellar extremity symptoms noted. - Ears- No outer ear blockages noted upon examination. Results - Labs: Last hemoglobin: 11.7 g/dL indicating mild anemia. - Cholesterol: 82 mg/dL in May 2023. Plan Meclizine will be prescribed for the management of vertigo, emphasizing careful use due to potential sedative effects. Pain management for knee osteoarthritis continues with 60 tablets as needed. Essential hypertension remains well- controlled on the present medication regimen, requiring no alterations at this time. Encouraged the patient to increase her physical activity cautiously and m aintain regular hydration, avoiding high-sugar juices. Reviewed the importance of her pending mammogram, with plans to align her next follow-up appointment accordingly for ongoing management of chronic health issues. Patient was informed and verbally consented to the use of an ambient scribe for clinic note documentation during this visit. Discussion Notes I explained the potential relationship of vertigo to inner ear mechanisms and the role of electrolyte shifts, advising hydration as a non-pharmacological intervention. Meclizine was offered as a symptomatic treatment for vertigo, with the understanding that it may cause drowsiness. The patient expressed understanding and consented to this management approach. Discussed the efficacy of her current regimen for hypertension and pain management for osteoarthritis. Agreed to continue with established therapeutic strategies barring any adverse changes. Additionally, the patient was reminded of her next mammogram and encouraged to remain physically active within her comfort levels. Reminded the patient to avoid sudden head or body movements and assured continuity of care with routine appointments aligned with preventive health schedules. Patient Instructions - Take meclizine only when experiencing dizziness, mindful of potential drowsiness. - Continue current medication regimen for hypertension and osteoarthritis as prescribed. - Maintain adequate hydration; minimize juice intake. - Avoid sudden movements to help manage vertigo. - Adhere to scheduled mammogram next month. - Increase safe physical activities and exercise as tolerated. Medications: New meclizine 25 mg PO BID PRN 30 tabs 0RF dizziness Refilled tramadol 50 mg PO BID 60 tabs 1RF M54.50 - Low back pain, unspecified
--- OUTSIDE RECORDS SUMMARY | 2024-07-23 10:45 | XMS_ITS | Clinical Summary ---
Author Organization [facility] Address [address] [place] [phone] Care Team Providers Care Bobbin Marker Name Role Phone Unavailable Primary Care Provider Unavailabl e Medical History Medical History Date Comments Essential hypertension, benign 12/20/2005 D X:Essential hypertension, benign Depressive disorder, not els ewhere classified 12/20/2005 DX:Depressive disorder, not elsewhere classified Allergic rhinitis, cause unspecified 04/13/2006 DX:Allergic rhinitis, cause unspecified Unspecified asthma(493.90) 04/13/2006 DX:Un specified asthma(493.90) SVT (supraventricular tachyc ardia) (CMS/HCC V24) 07/02/2007 DX:SVT (supraventricular tac hycardia) ([facility]); COMMENT: See note 06/19, and cardiology consultation [...] Annual BMP Blood Test 05/30/2023 RSV Immunization Adult Patients (1 - 1-dose 75+ series) 12/13/2023 COVID-19 Vaccine (2023-2 5 season) 2023 Influenza Vaccine (Season Ended) 2024 03/23/2007, 01/25/2005 HIB Vaccines Aged Out No longer [...] age to complete this topic Meningococcal B Vaccine Aged Out No l onger eligible based on patient's age to complete this topic RSV Immunization Patients Under 20 months Aged Out No longer eligible b ased on patient's age to complete this topic Varicella Vaccines Aged Out No longer eligible based on patient's age to complete this topic
== END 2024-07-23 10:39 | disposition home or self-care (01) ==
LOC: HO.HMCH 10:05
PROVIDERS: PCP Internal Medicine; Visit Provider Internal Medicine
DX: I10 Essential (primary) hypertension (principal); E66.9 Obesity, unspecified; M54.50 Low back pain, unspecified; Z68.38 Body mass index [BMI] 38.0-38.9, adult

== ENCOUNTER → 2024-07-23 10:04 | Outpatient (BNVA) | payer MEDICARE, SELFPAY | PROVIDERS: PCP Internal Medicine; Visit Provider Internal Medicine | DX: E66.9 Obesity, unspecified (principal); I10 Essential (primary) hypertension; M54.50 Low back pain, unspecified | CPT/HCPCS: 96127; 99212 ==

== ENCOUNTER 2024-08-05 09:34 | Outpatient (AMB) | payer MEDICARE, SELFPAY ==
--- NOTE | 2024-08-05 09:45 | A.OFFVIS_ITS ---
VS Expanded 08/05/24 09:46 Height 5 ft 3 in Weight 211 lb 14.886 oz BMI 37.5 Intake Visit Reasons: obesity , monitor weight Allergies penicillin V Allergy (Unknown, Verified 07/23/24 10:14) Unknown Sulfa (Sulfonamide Antibiotics) Allergy (Unknown, Verified 07/23/24 10:14) unknon Benadryl Allergy (Unknown, Uncoded 07/23/24 10:14) Unknown Nutrition Presentation Details: Pt presents for MNT f/u for obesity dairy: reports lately avoiding d/t lactose intolerance Reports having 3 meals/day , working on following [employer] plate method food frequency fruits: 1/d veg: daily 3-4 servings fish : 2x/wk dairy : 2 x/wk takes a daily mvi with iron denies constipation physical activity: walks 30 -40 min 3-4 times/wk BS Monitoring Most Recent Diabetes Results: Creatinine 1.00 mg/dL (0.5-1.4) 06/03/24 Blood Urea Nitrogen 24 mg/dL (9-16) H 06/03/24 Sodium 145 mmol/L (135-145) 06/03/24 Potassium 3.7 mmol/L (3.3-5.1) 06/03/24 Chloride 108 mmol/L (96-108) 06/03/24 Carbon Dioxide 29 mmol/L (22-29) 06/03/24 Calcium 9.3 mg/dL (8.4-10.2) 06/03/24 AST 22 U/L (5-31) 06/03/24 ALT 11 U/L (0-31) 06/03/24 Total Protein 8.2 g/dL (6.5-8.0) H 06/03/24 Albumin 3.9 g/dL (3.5-5.0) 06/03/24 PFSH Medical History Foul smelling urine Obesity Colon cancer screening COVID-19 virus infection Cataract Preop examination Anemia Hypertension Physical deconditioning Greater trochanteric bursitis of both hips Bilateral primary osteoarthritis of knee Sarcoidosis Gout Surgical History History of cataract surgery H/O colonoscopy H/O esophagogastroduodenoscopy Hx of tonsillectomy History of hysterectomy Family History Mother No problems noted. Father No problems noted. 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 Cognitive needs: No Hearing needs: No Vision needs: Yes Assessment & Plan Assessment & Plan (1) Morbid (severe) obesity due to excess calories: Code(s): E66.01 - Morbid (severe) obesity due to excess calories Category: Medical Plan: Wt: 106 Kg ( 11/2023 ), 103 kg (02/04), 98 kg (05/08), 96 kg (08/06) Est kcal needs as per MSJ: 1800 (40% carb, 30% protein/fat) Est fluid needs as per 25-30 ml/d: 3000 Est prot per day as per 1 g/kg bw: 100 Recommend fiber intake : 8-10 g per day and gradually increase to 25-28 g per day for women and 35-38 g for men or as tolerated Recommend sodium intake per day : less than 2000 mg Educated patient on: ( R = reviewed V = verbalizes understanding N/R = needs review N/A = not applicable * Food sources of carbohydrate, adequate serving sizes and its role in various health conditions: R * Differences between complex carbohydrates a simple carbohydrates, role of fiber in diet: R * Lean protein sources of foods: R * Differences between types of fats and role in diet (mono on saturated fat fatty acids, saturated fatty acids, trans fats): R basic low fat * Food sources of sodium in salt and healthy modifications for heart health in kidney health: R * Vitamins and minerals: R V * iron rich food sources of foods and calcium sources of foods - dairy alternatives R * Healthy plate method concept: R * Physical activity: Benefits a precaution: R * Pt has hx of lactose intolerance Pt's Goal weight 200 lbs. Patient Instructions: Include calcium sources of foods (greens, turnip, sunflower seeds, lactose free milk , soy milk fortified with calcium) HAve at least 2 servings a day of dairy alternatives and 1-2 servings of greens, seeds include fish twice a week and choose those with calcium like canned sardines/canned salmon recommended calcium per day 1200 mg Coding Level of Care Code Nutr Indiv Subseq (59255) Diagnoses Morbid (severe) obesity due to excess calories E66.01 Time Spent (min) 30
[2024-08-05 09:46] VITALS: BMI 37.5
--- OUTSIDE RECORDS SUMMARY | 2024-08-05 10:36 | XMS_ITS | Clinical Summary ---
Author Organization [facility] Address [address] [place] [id number] Care Team Providers Care Supervisor Plastering Name Role Phone Unavailable Primary Care Provider Unavailabl e Medical History Medical History Date Comments Essential hypertension, benign 12/20/2005 D X:Essential hypertension, benign Depressive disorder, not els ewhere classified 12/20/2005 DX:Depressive disorder, not elsewhere classified Allergic rhinitis, cause unspecified 04/13/2006 DX:Allergic rhinitis, cause unspecified Unspecified asthma(493.90) 04/13/2006 DX:Un specified asthma(493.90) SVT (supraventricular tachyc ardia) (CMS/HCC V24) 07/02/2007 DX:SVT (supraventricular tac hycardia) ([facility]); COMMENT: See note 06/19, and cardiology [...]
== END 2024-08-05 10:08 | disposition home or self-care (01) ==
LOC: HO.ENCR 09:35
PROVIDERS: PCP Internal Medicine; Visit Provider Dietitian, Registered
DX: E66.01 Morbid (severe) obesity due to excess calories (principal)

== ENCOUNTER → 2024-08-05 09:34 | Outpatient (BNVA) | payer MEDICARE, SELFPAY | PROVIDERS: PCP Internal Medicine; Visit Provider Dietitian, Registered | DX: E66.01 Morbid (severe) obesity due to excess calories (principal); Z68.37 Body mass index [BMI] 37.0-37.9, adult | CPT/HCPCS: 97803 ==

== ENCOUNTER 2024-08-19 10:30 | Outpatient (REF) | payer MEDICARE, SELFPAY ==
--- OUTSIDE RECORDS SUMMARY | 2024-08-19 11:52 | XMS_ITS | Clinical Summary ---
Author Organization [facility] Address [address] [place] [id number] Care Team Providers Care Scale Manager Name Role Phone Unavailable Primary Care Provider Unavailabl e Medical History Medical History Date Comments Essential hypertension, benign 12/20/2005 D X:Essential hypertension, benign Depressive disorder, not els ewhere classified 12/20/2005 DX:Depressive disorder, not elsewhere classified Allergic rhinitis, cause unspecified 04/13/2006 DX:Allergic rhinitis, cause unspecified Unspecified asthma(493.90) 04/13/2006 DX:Un specified asthma(493.90) SVT (supraventricular tachyc ardia) (CMS/HCC V24) 07/02/2007 DX:[facility]cardia[facility] ([facility] [...]
== END 2024-08-19 10:31 | disposition home or self-care (01) ==
LOC: HO.MAMMO 10:30
PROVIDERS: PCP Internal Medicine; Visit Provider Internal Medicine
DX: Z12.31 Encounter for screening mammogram for malignant neoplasm of breast (principal)
CPT/HCPCS: 77063; 77067

== ENCOUNTER → 2024-08-19 10:30 | Outpatient (BNV) | payer MEDICARE, SELFPAY | PROVIDERS: PCP Internal Medicine; Visit Provider Internal Medicine | DX: Z12.31 Encounter for screening mammogram for malignant neoplasm of breast (principal) | CPT/HCPCS: 77063; 77067 ==

== ENCOUNTER 2024-11-03 11:05 | Outpatient (AMB) | payer MEDICARE, SELFPAY ==
[2024-11-03 11:12] VITALS: BMI 37.2
--- NOTE | 2024-11-03 11:12 | A.OFFVIS_ITS ---
VS Expanded 11/03/24 11:12 Height 5 ft 3 in Weight 209 lb 14.081 oz BMI 37.2 Intake Visit Reasons: obesity Allergies penicillin V Allergy (Unknown, Verified 11/08/24 13:32) Unknown Sulfa (Sulfonamide Antibiotics) Allergy (Unknown, Verified 11/08/24 13:32) unknon Benadryl Allergy (Unknown, Uncoded 07/23/24 10:14) Unknown Nutrition Presentation Details: Pt presents for MNT f/u for obesity Pt reports physical activity has lessened due to hip pain - has pending appt with pain management * Pt reports working on having 3 meals/day and choosing smaller plates * notices choosing higher calorie foods when stressed and is working on reducing these * has home made meals 3 -4 times a week and is following healthy plate method, including kale/cookie greens some higher fat meats oxtail/ribs Overall reports feeling well PFSH Medical History Foul smelling urine Obesity Colon cancer screening COVID-19 virus infection Cataract Preop examination Anemia Hypertension Physical deconditioning Greater trochanteric bursitis of both hips Bilateral primary osteoarthritis of knee Sarcoidosis Gout Surgical History History of cataract surgery H/O colonoscopy H/O esophagogastroduodenoscopy Hx of tonsillectomy History of hysterectomy Family History Mother No problems noted. Father No problems noted. 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 Cognitive needs: No Hearing needs: No Vision needs: Yes Assessment & Plan Assessment & Plan (1) Morbid (severe) obesity due to excess calories: Code(s): E66.01 - Morbid (severe) obesity due to excess calories Category: Medical Plan: Wt: 106 Kg ( 11/2023 ), 103 kg (02/04), 98 kg (05/08), 96 kg (08/06), 95 kg (11/05) Est kcal needs as per MSJ: 1800 (40% carb, 30% protein/fat) Est fluid needs as per 25-30 ml/d: 2800 Est prot per day as per 1 g/kg bw: 80- 95 Recommend fiber intake : 8-10 g per day and gradually increase to 25-28 g per day for women and 35-38 g for men or as tolerated Recommend sodium intake per day : less than 2000 mg Educated patient on: ( R = reviewed V = verbalizes understanding N/R = needs review N/A = not applicable * Food sources of carbohydrate, adequate serving sizes and its role in various health conditions: R * Differences between complex carbohydrates a simple carbohydrates, role of fiber in diet: R * Lean protein sources of foods: R * Differences between types of fats and role in diet (mono on saturated fat fatty acids, saturated fatty acids, trans fats): R basic low fat * Food sources of sodium in salt and healthy modifications for heart health in kidney health: R * Vitamins and minerals: R V * iron rich food sources of foods and calcium sources of foods - dairy alternatives R * Healthy plate method concept: R * Physical activity: Benefits a precaution: R * Pt has hx of lactose intolerance Pt's Goal weight 200 lbs. Patient Instructions: Choose leaner/lower fat protein foods (poultry, remove skins/visible fat Keep hydrated by having water, low sugar beverages with meals Coding Level of Care Code Nutr Indiv Subseq (01627) Diagnoses Morbid (severe) obesity due to excess calories E66.01 Time Spent (min) 30
--- OUTSIDE RECORDS SUMMARY | 2024-11-03 12:07 | XMS_ITS | Clinical Summary ---
Author Organization [facility] Address [address] [place] [phone] Care Team Providers Care Industrial Organization Manager Name Role Phone Unavailable Primary Care Provider Unavailabl e Medical History Medical History Date Comments Essential hypertension, benign 12/20/2005 D X:Essential hypertension, benign Depressive disorder, not els ewhere classified 12/20/2005 DX:Depressive disorder, not elsewhere classified Allergic rhinitis, cause unspecified 04/13/2006 DX:Allergic rhinitis, cause unspecified Unspecified asthma(493.90) 04/13/2006 DX:Un specified asthma(493.90) SVT (supraventricular tachyc ardia) (CMS/HCC V24) 07/02/2007 DX:SVT (supraventricular tac [facility]cardia) ([facility] [...] Panel) 03/24/2022 Colorectal Cancer Screening: Colonoscopy 03/24/2022 Falls Risk Assessment 03/24/2022 Hepatitis C Screening 03/24/2022 Osteoporosis Screening (Bone Density Screening) 03/24/2022 Social Influencers of Health Screening 03/24/2022 Hypertension/CHF/CAD Annual BMP Blood Test 05/30/2023 RSV Immunization Adult Patients (1 - 1-dose 75+ series) 12/13/2023 COVID-19 Vaccine ( - 2023-2 5 season) 2023 Depression Screening 04/14/2024 Influenza Vaccine (#1) 2024 7, 01/25/2005 HIB Vaccines Aged Out No [...]
== END 2024-11-03 11:46 | disposition home or self-care (01) ==
LOC: HO.ENCR 11:06
PROVIDERS: PCP Internal Medicine; Visit Provider Dietitian, Registered
DX: E66.01 Morbid (severe) obesity due to excess calories (principal)

== ENCOUNTER → 2024-11-03 11:05 | Outpatient (BNVA) | payer MEDICARE, SELFPAY | PROVIDERS: PCP Internal Medicine; Visit Provider Dietitian, Registered | DX: E66.01 Morbid (severe) obesity due to excess calories (principal); Z68.37 Body mass index [BMI] 37.0-37.9, adult | CPT/HCPCS: 97803 ==

== ENCOUNTER 2024-11-08 13:25 | Outpatient (AMB) | payer MEDICARE, SELFPAY ==
--- NOTE | 2024-11-08 13:27 | MHC.OFFVIS ---
Vital Signs 11/08/24 13:28 Height 5 ft 3 in Weight 203 lb BMI 36.0 Intake Visit Reasons: Inj-B/L hip cortisone injection-last one 07/24/23 Intake Note: Eunice Sanders is a 73 year old female who presents today for a repeat injection in the left Greater Trochanteric Bursa. Last injection was administered on 07/24/23. Patient reports last injection helped and would like to repeat the injections. Allergies penicillin V Allergy (Unknown, Verified 11/08/24 13:32) Unknown Sulfa (Sulfonamide Antibiotics) Allergy (Unknown, Verified 11/08/24 13:32) unknon Benadryl Allergy (Unknown, Uncoded 07/23/24 10:14) Unknown HPI HPI Inj-B/L hip cortisone injection-last one 07/24/23: Details: Eunice Sanders is a 73 year old female who presents today for a repeat injection in the left Greater Trochanteric Bursa. Last injection was administered on 07/24/23. Patient reports last injection helped and would like to repeat the injections. She has lumbar back pain as well. She denies radiations into the legs. [facility] Medical History Foul smelling urine Obesity Colon cancer screening COVID-19 virus infection Cataract Preop examination Anemia Hypertension Physical deconditioning Greater trochanteric bursitis of both hips Bilateral primary osteoarthritis of knee Sarcoidosis Gout Surgical History History of cataract surgery H/O colonoscopy H/O esophagogastroduodenoscopy Hx of tonsillectomy History of hysterectomy Family History Mother No problems noted. Father No problems noted. 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 Cognitive needs: No Hearing needs: No Vision needs: Yes Physical Exam Vital Signs: BMI result Body Mass Index 36.0 Const General: no acute distress, alert and awake Orientation/consciousness: patient oriented x3 HEENT Head: Yes normocephalic and Yes atraumatic Eyes EOM: EOMs intact bilaterally Resp Effort & Inspection: normal respiratory effort and able to speak in complete sentences Cardio Jugular venous distension: no JVD Skin General skin exam: turgor normal Rashes: no rashes Neuro General: patient oriented x3 Extrem Other: Left Hip: Skin C/D/I TTP left greater trochanter Left Knee: Skin C/D/I TTP medial & lateral joint line Mild effusion Psych Appearance: grossly normal Affect: normal affect Attitude: cooperative Office Procedures Joint Inj/Aspir; Non-Pain Clin Joint Injection/Drain Details: Injected 1 mL of Decadron and 3 mL 1% lidocaine and 3 mL of 0.25% Marcaine. Site was prepped using aseptic technique. Patient tolerated the procedure well. Shoulders, Hips, Knees, Hip Injection Large Joint : Bilateral Hip (Greater trochanteric bursa bilaterally) Coding Procedure code (CPT) selection complete Assessment & Plan Assessment & Plan (1) Greater trochanteric bursitis of both hips: Code(s): M70.61 - Trochanteric bursitis, right hip; M70.62 - Trochanteric bursitis, left hip Category: Medical Plan: Greater trochanteric bursitis. She feels better with injections and is working on losing weight. I injected both hips today Coding Level of Care Code Est Pt Level 3 (81595) Diagnoses Greater trochanteric bursitis of both hips M70.61; M70.62 CPT Codes Shoulders, Hips, Knees, - Hip Injection Large Joint : Bilateral Hip ([id number])
[2024-11-08 13:28] VITALS: BMI 36.0
--- OUTSIDE RECORDS SUMMARY | 2024-11-08 14:08 | XMS_ITS | Clinical Summary ---
Author Organization [facility] Address [id number] [place] [id number] Care Team Providers Care Web Marketing Coordinator Name Role Phone Unavailable Primary Care Provider Unavailabl e Medical History Medical History Date Comments Essential hypertension, benign 12/20/2005 D X:Essential hypertension, benign Depressive disorder, not els ewhere classified 12/20/2005 DX:Depressive disorder, not elsewhere classified Allergic rhinitis, cause unspecified 04/13/2006 DX:Allergic rhinitis, cause unspecified Unspecified asthma(493.90) 04/13/2006 DX:Un specified asthma(493.90) SVT (supraventricular tachyc ardia) (CMS/HCC V24) 07/02/2007 DX:SVT (supraventricular tac hycardia) ([facility]); COMMENT: See note 06/19, and cardiology consultation [...]
== END 2024-11-08 14:02 | disposition home or self-care (01) ==
LOC: HO.HOS 13:26
PROVIDERS: PCP Internal Medicine; Visit Provider Orthopaedic Surgery
DX: M70.61 Trochanteric bursitis, right hip (principal); M70.62 Trochanteric bursitis, left hip
CPT/HCPCS: 20610; 99213

== ENCOUNTER → 2024-11-08 13:25 | Outpatient (BNVA) | payer MEDICARE, SELFPAY | PROVIDERS: PCP Internal Medicine; Visit Provider Orthopaedic Surgery | DX: M70.61 Trochanteric bursitis, right hip (principal); M70.62 Trochanteric bursitis, left hip | CPT/HCPCS: 20610; 99212; J0665; J1100; J2003 ==

== ENCOUNTER 2024-11-15 10:07 | Outpatient (REF) | payer MEDICARE, SELFPAY ==
[2024-11-15 10:20] LABS: MANUAL DIFF FLAG NO
--- OUTSIDE RECORDS SUMMARY | 2024-11-15 10:45 | XMS_ITS | Clinical Summary ---
Author Organization [facility] Address [address] [place] [id number] Care Team Providers Care Attendant Coin Operated Laundry Name Role Phone Unavailable Primary Care Provider Unavailabl e Medical History Medical History Date Comments Essential hypertension, benign 12/20/2005 D X:Essential hypertension, benign Depressive disorder, not els ewhere classified 12/20/2005 DX:Depressive disorder, not elsewhere classified Allergic rhinitis, cause unspecified 04/13/2006 DX:Allergic rhinitis, cause unspecified Unspecified asthma(493.90) 04/13/2006 DX:Un specified asthma(493.90) SVT (supraventricular tachyc ardia) (CMS/HCC V24) 07/02/2007 DX:SVT (supraventricular tac hycardia) ([facility]); COMMENT: See note 06/19, and cardiology [...]
[2024-11-15 10:52] LABS: Hematocrit 36.8 % (37.0-47.0); Hemoglobin 11.6 g/dl (12.0-16.0); Imm Gran Abs Auto 0.02 X10*3/uL (0.00-0.03); Imm Gran Pct Auto 0.3 % (0.0-0.4); Lymphocytes Absolute Auto 2.3 X10*3/uL (1.2-4.9); Mean Corpuscular HGB Conc 31.5 g/dl (31.0-35.0); Mean Corpuscular Hemoglobin 29.8 pg (27.0-33.0); Mean Corpuscular Volume 94.6 fL (80.0-98.0); NRBC Abs Auto 0.000 X10*3/uL (0.0-0.012); NRBC Pct Auto 0.0 /100WBC (0.0-0.2); Platelet Count 178 X10*3/uL (160-400); Red Blood Count 3.89 X10*6/uL (4.20-5.50); Reticulocytes Absolute 0.045 X10*6/uL (0.026-0.095); White Blood Count 7.3 X10*3/uL (4.8-10.8)
[2024-11-15 12:04] LABS: Ferritin 56 ng/mL (10-250)
== END 2024-11-15 10:08 | disposition home or self-care (01) ==
LOC: HO.LAB 10:07
PROVIDERS: Internal Medicine; PCP Internal Medicine; Visit Provider Internal Medicine
DX: D64.9 Anemia, unspecified (principal)
CPT/HCPCS: 36415; 82728; 83615; 85025; 85045

== ENCOUNTER 2024-11-22 10:01 | Outpatient (AMB) | payer MEDICARE, SELFPAY ==
--- NOTE | 2024-11-22 10:07 | MHC.PC.OV ---
Vital Signs 11/22/24 10:08 Height 5 ft 3 in Weight 208 lb 4 oz BMI 36.9 BP 110/62 Blood Pressure Location Lt brachial Position Sitting Pulse 68 Pulse Source Pulse Oximeter Temp 96.9 F Temp Source Temporal Artery Scan Pulse Oximetry (%) 98 Oxygen Delivery Method Room Air Intake Visit Reasons: Annual exam Intake Note: Patient is here today for a physical. English As A Second Language Teacher Required: No Postdoctoral Scholar: Not Required per policy Accompanied by: Self / Same As Patient Allergies penicillin V Allergy (Unknown, Verified 11/22/24 10:08) Unknown Sulfa (Sulfonamide Antibiotics) Allergy (Unknown, Verified 11/22/24 10:08) unknon Benadryl Allergy (Unknown, Uncoded 11/22/24 10:08) Unknown Medication List - Last Reconciled 11/22/24 by Eduardo Guaman MD ascorbate calcium (vitamin C) 500 mg PO BID 90 days clonidine HCl 0.1 mg PO BID cyanocobalamin (vitamin B-12) 1,000 mcg PO DAILY 90 days diltiazem HCl CD 240 mg PO DAILY 90 days hydrochlorothiazide 25 mg PO DAILY 90 days meclizine 25 mg PO BID PRN metoprolol succinate ER 100 mg PO DAILY multivitamin (One-A-Day Essential tablet) 1 tab PO DAILY tramadol 50 mg PO BID Tobacco use date assessed: 11/22/24 Fall risk assessment: No Falls in past year Last assessed Fall Risk: 11/22/24 Dental Screening Dental Screen Date: 05/27/24 [facility] Medical History Foul smelling urine Obesity Colon cancer screening COVID-19 virus infection Cataract Preop examination Anemia Hypertension Physical deconditioning Greater trochanteric bursitis of both hips Bilateral primary osteoarthritis of knee Sarcoidosis Gout Surgical History History of cataract surgery H/O colonoscopy H/O esophagogastroduodenoscopy Hx of tonsillectomy History of hysterectomy Family History Mother No problems noted. Father No problems noted. 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 1. Little interest or pleasure in doing things: not at all 2. Feeling down, depressed, or hopeless: not at all 3. Trouble falling or staying asleep, or sleeping too much: not at all 4. Feeling tired or having little energy: nearly every day 5. Poor appetite or overeating: not at all 6. Feeling bad about yourself - or that you are a failure or have let yourself or your family down: not at all 7. Trouble concentrating on things, such as reading the newspaper or watching television: not at all 8. Moving or speaking so slowly that other people could have noticed. Or the opposite - being so fidgety or restless that you have been moving around a lot more than usual: not at all 9. Thoughts that you would be better off or of hurting yourself in some way: not at all Total score: 3 Depression Screening Interpretation: Positive Depression Screening Done: Yes Source: Developed by Drs. Edson Mcarthur, Lolis Conrad, Aidan Dorsey and colleagues, with an educational rodriguez from [employer]. Thrive Questionnaire Date Thrive assessed: 05/27/24 I am a: Patient What is your living situation today?: I have a steady place to live Within the past 12 months, did the food you bought not last and you didn't have the money to get more?: Sometimes True Within the past 12 months, did you worry whether your food would run out before you got money to buy more?: Often true Do you have trouble paying for medicines?: Yes Do you have trouble getting transportation to medical appointments?: No Do you have trouble paying your heating and electricity bill?: Yes Do you have trouble taking care of your child, family member or friend?: No Do you have trouble with day-to-day activities such as bathing, preparing meals, shopping, managing finances, etc.?: No Are you currently unemployed and looking for a job?: No Are you interested in more education?: No Please select the resources that you would like help with: None Currently or been in a relationship where the following occur: I choose not to answer THRIVE Score: 3 AUDIT C Alcohol Use Questionnaire (AUDIT-C) 1. How often do you have a drink containing alcohol?: Never Total Score: 0 TESSIE-7 AMB Questionnaire TESSIE-7 Date TESSIE - 7 assessed: 11/22/24 Feeling nervous, anxious, or on edge: 0 = Not at all Not being able to stop or control worryin = Nearly every day Worrying too much about different things: 3 = Nearly every day Trouble relaxin = Nearly every day Being so restless that it is hard to sit still: 3 = Nearly every day Becoming easily annoyed or irritable: 0 = Not at all Feeling afraid as if something awful might happen: 0 = Not at all Total TESSIE-7 score (0-4 normal; 5-9 mild; 10-14 moderate; 15-21 severe): 12 Source: Developed by Drs. Edson Mcarthur, Lolis Conrad, Aidan Dorsey and colleagues, with an educational rodriguez from [employer]. Review of Systems Const Denies poor appetite and Denies weakness Eyes Denies no additional complaints ENT Reports Normal hearing present, Denies dizziness, Denies nasal congestion, Denies tinnitus and Denies sore throat Card Denies chest pain, Denies syncope, Denies rapid heart rate and Denies dyspnea Resp Denies cough and Denies dyspnea GI Denies change in stool character, Reports constipation, Denies diarrhea, Denies nausea and Denies vomiting Denies urinary frequency, Denies difficulty voiding and Denies dysuria Neuro Reports Normal hearing present, Denies confusion, Denies dizziness, Denies syncope and Denies weakness Psych Denies confusion Physical exam (Primary Care) Vital Signs: Last Vital Signs Temp 96.9 F 11/22/24 10:08 Pulse 68 11/22/24 10:08 BP 110/62 11/22/24 10:08 Pulse Ox 98 11/22/24 10:08 Oxygen Delivery Method Room Air 11/22/24 10:08 BMI result Body Mass Index 36.9 Tobacco/Smoking Status: Tobacco use Status Tobacco use date assessed 11/22/24 11/22/24 10:14 Patient Tobacco Use Status Never used Tobacco 11/22/24 10:29 Tobacco use type Cigarette 11/22/24 10:29 e-Cigarette/Vaping Use Never Used 11/22/24 10:29 PHQ-9: PHQ-9 Score PHQ-9: Total score 3 11/22/24 10:53 Depression Screening Interpretation: Positive Thrive Assessment: Date of Thrive Assessment Date Thrive assessed 05/27/24 11/22/24 10:14 Currently or been in a relationship where the following occur: I choose not to answer Const General: alert; No acute distress or confusion Orientation/consciousness: No confusion HENMT Head: Yes normocephalic Ears: external ears normal and TM's normal bilaterally Face and sinus: Yes normal facial exam Mouth: moist mucous membranes Throat: Yes tonsils normal Eyes Conjunctivae: conjunctivae normal Pupils: Equal, round and reactive pupils present and Pupil accommodation reflex normal Direct Ophthalmoscopy: normal light reflex Neck Neck: No lymphadenopathy Thyroid: Thyroid normal Chest Chest palpation & inspection: normal inspection of the chest Resp Effort & Inspection: normal respiratory effort and no audible wheezes Auscultation: clear to auscultation bilaterally Cardio Rate: regular rate Rhythm: regular rhythm Peripheral pulses: radial pulses present and dorsalis pedis present GI Inspection: Yes normal to inspection Palpation (GI): no masses Auscultation: normal bowel sounds and normoactive bowel sounds Rectal Exam - Female: deferred Skin General skin exam: no rashes or lesions noted Rashes: no rashes Neuro General: deep tendon reflexes 2+ bilaterally and No confusion Cranial nerves: Yes Equal, round and reactive pupils present, Yes Midline tongue present, Yes Normal hearing present and Yes Ability to bilaterally elevate shoulders present Cognition (Neuro): normal cognition Gait exam (Neuro): Normal gait present Motor exam (neuro): 5/5 motor strength present throughout Deep tendon reflexes (DTR's): Right brachioradialis reflex intensity grade: 2+, Left brachioradialis reflex intensity grade: 2+, Right patellar reflex intensity grade: 2+ and Left patellar reflex intensity grade: 2+ Extrem General: Yes normal to inspection and No edema Immunizations Tenivac (PF) 5 Lf unit-2 Lf unit/0.5 mL intramuscular suspension Performing Provider: Eduardo Guaman MD Performing Location: [facility] Administered by: Chantelle Patel CMA on 11/22/24 10:52 Dose Route Admin Location Dispensed Lot Number Expiration Date NDC Cycle Touring Guide 0.5 mL IM Left Deltoid 0.5 mL [id number] 07/13/26 [id number] [employer] Total Dispensed Waste 0.5 mL 0 % VIS Given Date VIS Provided VIS Publication Date 11/22/24 Single Vaccine 20 Eligibility Eligibility Date Funding Source Not [facility] Eligible 11/22/24 Private Coding Level of Care Code Est Pt Prev Care >65y(47563) Diagnoses Essential hypertension I10 Hypertension type: essential hypertension Obesity (BMI 30-39.9) E66.9 Normocytic anemia D64.9 Assessment & Plan Assessment & Plan (1) Hypertension: Code(s): I10 - Essential (primary) hypertension Category: Medical Qualifiers: Hypertension type: essential hypertension Qualified Code(s): I10 - Essential (primary) hypertension Plan: Continue with blood pressure medication. Decrease salt intake and exercise patient on metoprolol , clonidine diltiazem and hydrochlorothiazide (2) Obesity (BMI 30-39.9): Code(s): E66.9 - Obesity, unspecified Category: Medical Plan: Continue with diet and exercise (3) Normocytic anemia: Code(s): D64.9 - Anemia, unspecified Category: Medical Plan: Patient continues to follow-up with Hematology-Oncology and continue to monitor Plan History of Present Illness The patient is a 73-year-old female presenting for an annual physical examination. She has a history of essential hypertension, managed with metoprolol, hydrochlorothiazide, diltiazem, and clonidine, with stable blood pressure and no new symptoms. The patient follows up with hematology oncology for normocytic anemia, which is stable with a hemoglobin level of 11.6 g/dL and hematocrit of 36.8%. She experiences bilateral hip pain due to arthritis, with moderate degenerative changes noted on imaging, and has received hip injections with limited relief. The patient is obese and is working with a home extension agent to manage her weight, with advice to increase physical activity and consider weight loss medications. She reports dizziness when changing positions, which has improved without physical therapy. The patient has hemorrhoids, not currently inflamed, and experiences occasional diarrhea due to dietary triggers, advised to maintain hydration. Health Maintenance - Colonoscopy performed in October 2020 - Mammogram is up to date - Pneumonia vaccination received in 2006 - Tetanus vaccination recommended and administered - Shingles vaccination discussed, not administered Social History - Does not consume alcohol, smoke, or use recreational drugs - Engages in limited physical activity, advised to increase exercise - Working with a home extension agent for weight management Review of Systems - Cardiovascular: Denies chest pain, dyspnea, or palpitations - Respiratory: Denies cough, wheezing, or hemoptysis - Gastrointestinal: Reports diarrhea with certain foods, denies constipation - Neurological: Reports dizziness when changing positions, denies headaches or syncope - Musculoskeletal: Reports bilateral hip pain, denies other joint pain Physical Exam General: Cooperative, healthy appearing, comfortable, no acute distress and well developed Orientation: Patient oriented x3 Limitations: No limitations Head: Normal to inspection Ears: Hearing grossly normal bilaterally Nose: Normal external nose present Face and sinus: Normal facial exam Eyes: Appearance normal, both eyes and all related structures Neck: Normal visual inspection and Yes full ROM Respiratory: Normal respiratory effort and able to speak in complete sentences. Clear to auscultation bilaterally Cardiovascular: Regular rate and rhythm. Normal S1 and S2 GI: Normal to inspection. Soft to palpation and nontender Skin: No rashes or lesions noted Neuro: Patient oriented x3 Extremities: Normal to inspection Results - Labs: Hemoglobin 11.6 g/dL, Hematocrit 36.8%, Creatinine 1.0 mg/dL, GFR 54 mL/min/1.73 m? - Cholesterol: LDL 82 mg/dL, Triglycerides 77 mg/dL (May 2023) Plan The patient will continue her current antihypertensive regimen, including metoprolol, hydrochlorothiazide, diltiazem, and clonidine, as her blood pressure is well-controlled. She will maintain follow-up with hematology oncology for monitoring of her normocytic anemia, which remains stable without the need for iron supplementation. For her bilateral hip pain due to arthritis, she will continue to follow up with orthopedics and consider alternative pain management strategies, as previous injections provided limited relief. Weight management will be addressed through continued nutritional counseling and increased physical activity, with consideration of weight loss medications if necessary and financially feasible. The patient is advised to monitor her dizziness and seek further evaluation if symptoms persist or worsen. She will manage her hemorrhoids with dietary modifications to prevent constipation and maintain adequate hydration. Preventative care measures include ensuring vaccinations are up to date, with a tetanus shot administered during this visit and discussion of the shingles vaccine. Patient was informed and verbally consented to the use of an ambient scribe for clinic note documentation during this visit. Discussion Notes During the visit, I discussed the importance of maintaining her current antihypertensive regimen to keep her blood pressure controlled. We reviewed her normocytic anemia management plan, emphasizing the need for regular follow-up with hematology oncology. I advised her to continue working with her home extension agent for weight management and to increase her physical activity. We discussed the limited relief from hip injections and the need to explore other pain management options. I recommended monitoring her dizziness and adjusting her diet to manage hemorrhoids and prevent constipation. We also ensured her vaccinations were up to date, administering a tetanus shot and discussing the shingles vaccine. Patient Instructions - Continue taking blood pressure medications as prescribed. - Follow up with hematology oncology for anemia monitoring. - Work with home extension agent and increase physical activity for weight management. - Monitor dizziness and seek evaluation if it worsens. - Manage hemorrhoids with dietary changes and stay hydrated. - Ensure vaccinations are up to date, including tetanus and consider shingles vaccine. Orders: Orders Td Immunization Today Z23 - Encounter for immunization Medications: Refilled tramadol 50 mg PO BID 60 tabs 1RF M54.50 - Low back pain, unspecified
[2024-11-22 10:08] VITALS: BP 110/62; PULSE 68; TEMP 36.1; O2SAT 98; BMI 36.9
--- OUTSIDE RECORDS SUMMARY | 2024-11-22 10:40 | XMS_ITS | Clinical Summary ---
Author Organization [facility] Address [id number] [place] [phone] Care Team Providers Care Cage Loader Name Role Phone Unavailable Primary Care Provider Unavailabl e Medical History Medical History Date Comments Essential hypertension, benign 12/20/2005 D X:Essential hypertension, benign Depressive disorder, not els ewhere classified 12/20/2005 DX:Depressive disorder, not elsewhere classified Allergic rhinitis, cause unspecified 04/13/2006 DX:Allergic rhinitis, cause unspecified Unspecified asthma(493.90) 04/13/2006 DX:Un specified asthma(493.90) SVT (supraventricular tachyc ardia) (CMS/HCC V24) 07/02/2007 DX:SVT (supraventricular tac hycardia) ([facility]); COMMENT: See note 06/19, and cardiology [...]
== END 2024-11-22 10:58 | disposition home or self-care (01) ==
LOC: HO.HMCH 10:01
PROVIDERS: PCP Internal Medicine; Visit Provider Internal Medicine
DX: Z00.00 Encounter for general adult medical examination without abnormal findings (principal); E66.9 Obesity, unspecified; Z68.36 Body mass index [BMI] 36.0-36.9, adult; I10 Essential (primary) hypertension; D64.9 Anemia, unspecified; Z23 Encounter for immunization

== ENCOUNTER → 2024-11-22 10:01 | Outpatient (BNVA) | payer MEDICARE, SELFPAY | PROVIDERS: PCP Internal Medicine; Visit Provider Internal Medicine | DX: Z00.00 Encounter for general adult medical examination without abnormal findings (principal); I10 Essential (primary) hypertension; E66.9 Obesity, unspecified; D64.9 Anemia, unspecified; R42 Dizziness and giddiness; M16.0 Bilateral primary osteoarthritis of hip; M54.50 Low back pain, unspecified; Z68.36 Body mass index [BMI] 36.0-36.9, adult; Z23 Encounter for immunization | CPT/HCPCS: 90471; 90714; 96127; 99397 ==

== ENCOUNTER 2025-02-10 11:10 | Outpatient (AMB) | payer MEDICARE, SELFPAY ==
--- NOTE | 2025-02-10 11:32 | MHC.OFFVIS ---
Vital Signs 02/10/25 11:33 Height 5 ft 3 in Weight 208 lb BMI 36.8 Intake Visit Reasons: INJ - B/L GT Bursa injections - Last done 10/27/24 Intake Note: Eunice Sanders is a 74 year old female who presents today for a follow up of her Bilateral Greater Trochanteric Bursitis, Last injected on 11/08/24. Patient reports that the last injections were not as helpful as they usually are but she attributes this to not taking it easy after the injections, she feels as though she did too much too soon. She would like to repeat injections bilaterally today Allergies penicillin V Allergy (Unknown, Verified 11/22/24 10:08) Unknown Sulfa (Sulfonamide Antibiotics) Allergy (Unknown, Verified 11/22/24 10:08) unknon Benadryl Allergy (Unknown, Uncoded 11/22/24 10:08) Unknown HPI HPI INJ - B/L GT Bursa injections - Last done 10/27/24: Details: Eunice Sanders is a 74 year old female who presents today for a follow up of her Bilateral Greater Trochanteric Bursitis, Last injected on 11/08/24. She has lateral hip pain left > right especially at night when sleeping on her side. Patient reports that the last injections were not as helpful as they usually are but she attributes this to not taking it easy after the injections, she feels as though she did too much too soon. She would like to repeat injections bilaterally today [facility] Medical History Foul smelling urine Obesity Colon cancer screening COVID-19 virus infection Cataract Preop examination Anemia Hypertension Physical deconditioning Greater trochanteric bursitis of both hips Bilateral primary osteoarthritis of knee Sarcoidosis Gout Surgical History History of cataract surgery H/O colonoscopy H/O esophagogastroduodenoscopy Hx of tonsillectomy History of hysterectomy Family History Mother No problems noted. Father No problems noted. 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 Site was prepped using aseptic technique. Patient tolerated the procedure well. Shoulders, Hips, Knees, Hip Injection Large Joint : Bilateral Hip Coding Procedure code (CPT) selection complete Assessment & Plan Assessment & Plan (1) Greater trochanteric bursitis of both hips: Code(s): M70.61 - Trochanteric bursitis, right hip; M70.62 - Trochanteric bursitis, left hip Category: Medical Plan: Ongoing greater trochanteric bursitis that has responded to injections in the past. I injected bilateral greater trochanters today. F.u as needed Coding Level of Care Code Est Pt Level 3 (17870) Diagnoses Greater trochanteric bursitis of both hips M70.61; M70.62 CPT Codes Shoulders, Hips, Knees, - Hip Injection Large Joint : Bilateral Hip ([id number])
[2025-02-10 11:33] VITALS: BMI 36.8
--- OUTSIDE RECORDS SUMMARY | 2025-02-10 14:00 | XMS_ITS | Clinical Summary ---
Author Organization [facility] Address [id number] [place] [id number] Care Team Providers Care Production Department Supervisor Name Role Phone Unavailable Primary Care Provider Unavailabl e Medical History Medical History Date Comments Essential hypertension, benign 12/20/2005 D X:Essential hypertension, benign Depressive disorder, not els ewhere classified 12/20/2005 DX:Depressive disorder, not elsewhere classified Allergic rhinitis, cause unspecified 04/13/2006 DX:Allergic rhinitis, cause unspecified Unspecified asthma(493.90) 04/13/2006 DX:Un specified asthma(493.90) SVT (supraventricular tachyc ardia) (CMS/HCC V24) 07/02/2007 DX:SVT (supraventricular tac hycardia) ([facility]); COMMENT: See note 06/19, and [...] 03/23/2008 03/23/2007 Cholesterol Screening (Lipid Panel) 03/24/2022 Falls Risk Assessment 03/24/2022 Hepatitis C Screening 03/24/2022 Osteoporosis Screening (Bone Density Screening) 03/24/2022 Social Influencers of Health Screening 03/24/2022 Hypertension/CHF/CAD Annual BMP Blood Test 05/30/2023 RSV Immunization Adult Patients (1 - 1-dose 75+ series) 12/13/2023 Depression Screening 04/14/2024 COVID-19 Vaccine ( - 2023-2 5 season) 2024 Influenza Vaccine (#1) 2024 7, 01/25/2005 HIB [...]
== END 2025-02-10 11:51 | disposition home or self-care (01) ==
LOC: HO.HOS 11:11
PROVIDERS: PCP Internal Medicine; Visit Provider Orthopaedic Surgery
DX: M70.61 Trochanteric bursitis, right hip (principal); M70.62 Trochanteric bursitis, left hip
CPT/HCPCS: 20610; 99213

== ENCOUNTER → 2025-02-10 11:10 | Outpatient (BNVA) | payer MEDICARE, SELFPAY | PROVIDERS: PCP Internal Medicine; Visit Provider Orthopaedic Surgery | DX: M70.61 Trochanteric bursitis, right hip (principal); M70.62 Trochanteric bursitis, left hip | CPT/HCPCS: 20610; 99212; J0665; J1100; J2003 ==